=== PATIENT | female | born 1980 | race Hispanic/Latino ===

== ENCOUNTER 2018-03-10 10:40 | Emergency (ER) | payer BC ==
[2018-03-10] MEDS ORDERED: FAMOTIDINE 20 MG/2 ML VIAL IV ONE (12:00)
[2018-03-10] MEDS ORDERED: NA CHLORIDE 0.9% 1,000 ML ONE (12:00)
[2018-03-10 12:06] LABS: Absolute Lymphocytes (CBC) 2.3 K/uL (0.7-4.9); Absolute Monocytes 0.8 K/uL (0.1-1.3); Absolute Neutrophil 7.7 K/uL (1.8-8.0); Basophils % 0.7 % (0-1.3); Eosinophils % 1.3 % (0-4.4); Hematocrit 42.6 % (36.0-45.0); Lymphocytes % 20.8 % (15.3-44.8); MPV 9.8 fL (7.6-11.3); Monocytes % 7.2 % (3.3-12.3); RBC Red Blood Cell Count 4.32 M/uL (3.86-4.86)
--- NOTE | 2018-03-10 12:19 | EKG ---
Test Date: 2018-03-10 Test Time: 11:00:56 Plastic Surgery Manager: BRADNIE MEASUREMENT RESULTS: Intervals: Rate: 106 ID: [id number] QRSD: 100 QT: 336 QTc: 446 Fellows: P: 66 ID: [id number] QRS: 90 T: 63 INTERPRETIVE STATEMENTS: Sinus tachycardia Rightward axis Borderline ECG No previous ECG available for comparison Electronically Signed On 03-10-18 12:18:56 ASSISTANT CHIEF TRAIN DISPATCHER by Eduardo Mendez
[2018-03-10 12:29] LABS: ALT/SGPT 77 U/L (12-78); AST/SGOT 28 U/L (15-37); Albumin 3.5 g/dL (3.4-5.0); Alkaline Phosphatase 74 U/L (45-117); BUN Blood Urea Nitrogen 11 mg/dL (7-18); Bicarbonate 28 mmol/L (21-32); Bilirubin Direct 0.2 mg/dL (0-0.2); Bilirubin Total 0.5 mg/dL (0.2-1.0); Glucose Level 106 mg/dL (74-106); Magnesium 1.9 mg/dL (1.8-2.4); NT PRO-BNP 9 pg/mL (<125); Potassium 3.5 mmol/L (3.5-5.1); Protein, Total 7.3 g/dL (6.4-8.2); Sodium Level 141 mmol/L (136-145); Troponin (Emerg Dept Use Only) < 0.02 ng/mL (0.0-0.045)
--- NOTE | 2018-03-10 13:51 | RAD REPORT ---
EXAM DESCRIPTION: Giovanny Single View03/10/2018 1:26 pm CLINICAL HISTORY: Chest pain COMPARISON: none FINDINGS: The lungs appear clear of acute infiltrate. The heart is normal size IMPRESSION: No acute abnormalities displayed
--- NOTE | 2018-03-10 15:00 | ER ---
Nurse's Notes [facility] Name: Suly Law Age: 38 yrs Sex: Female : 1980 Arrival Date: 03/10/2018 Time: 10:44 Bed 13 Private MD: None, None Diagnosis: Other chest pain Presentation: 03/10 11:02 Presenting complaint: Patient states: N/V/D x 2 days, sharp midsternal chest pain that ph began at 0300 today, also reports feeling "tingly" all over, states, " after I eat sometimes I get pain here (epigastric area) and it goes through to my back" Denies epigastric pain at this time, denies fever. Transition of care: patient was not received from another setting of care. Onset of symptoms was March 10, 2018. Risk Assessment: Do you want to hurt yourself or someone else? Patient reports no desire to harm self or others. Initial Sepsis Screen: Does the patient meet any 2 criteria? No. Patient's initial sepsis screen is negative. Does the patient have a suspected source of infection? No. Patient's initial sepsis screen is negative. Care prior to arrival: None. 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 - Ebola Screening: : Patient negative for fever greater than or equal to 101.5 degrees Fahrenheit, and additional compatible Ebola Virus Disease symptoms. - Social history:: Smoking status: Patient/guardian denies using tobacco. Screenin:00 Abuse screen: Denies threats or abuse. Nutritional screening: Nausea and vomiting x 3 rb1 days. Tuberculosis screening: No symptoms or risk factors identified. Fall Risk None identified. Assessment: 11:00 General: Appears in no apparent distress. comfortable, obese, Behavior is calm, rb1 cooperative, Denies fever. Pain: Complains of pain in mid-sternal area Pain radiates to back Pain currently is 7 out of 10 on a pain scale. Quality of pain is described as sharp, Pain began 2-3 days ago. Per pt. report the pain comes and goes. Neuro: Level of Consciousness is awake, alert, obeys commands, Oriented to person, place, time, situation, Reports numbness in fingers. Cardiovascular: Capillary refill < 3 seconds is brisk in bilateral fingers Rhythm is sinus tachycardia. Respiratory: Airway is patent Respiratory effort is even, unlabored, Respiratory pattern is regular, symmetrical. GI: Reports diarrhea, nausea, vomiting. : No signs and/or symptoms were reported regarding the genitourinary system. Derm: Skin is dry, Skin is normal, Skin temperature is warm. Musculoskeletal: Range of motion: intact in all extremities. 12:00 Reassessment: Patient appears in no apparent distress at this time. No changes from rb1 previously documented assessment. 13:00 Reassessment: Patient appears in no apparent distress at this time. Patient and/or rb1 family updated on plan of care and expected duration. Pain level reassessed. Patient is alert, oriented x 3, equal unlabored respirations, skin warm/dry/pink. 14:00 Reassessment: Patient appears in no apparent distress at this time. No changes from rb1 previously documented assessment. Patient states feeling better. 15:00 Reassessment: Patient appears in no apparent distress at this time. Patient and/or rb1 family updated on plan of care and expected duration. Pain level reassessed. Patient is alert, oriented x 3, equal unlabored respirations, skin warm/dry/pink. Vital Signs: 11:04 BP 149 / 97; Pulse 115; Resp 20; Temp 98.0; Pulse Ox 98% on R/A; Weight 114.76 kg; ph Height 5 ft. 4 in. (162.56 cm); 12:04 BP 135 / 76; Pulse 95; Resp 20; Pulse Ox 99% ; Pain 7/10; rb1 13:00 BP 128 / 78; Pulse 81; Resp 23; Pulse Ox 99% on R/A; rb1 14:00 BP 127 / 86; Pulse 88; Resp 19; Pulse Ox 99% on R/A; rb1 15:00 BP 128 / 77; Pulse 81; Resp 17; Pulse Ox 99% ; rb1 15:20 BP 128 / 77; Pulse 81; Resp 25; Pulse Ox 99% ; rb1 11:04 Body Mass Index 43.43 (114.76 kg, 162.56 cm) ph ED Course: 10:44 Patient arrived in ED. sb2 10:45 None, None is Private Physician. sb2 10:59 Carmen Lopez, RN is Primary Nurse. rb1 11:00 Patient has correct armband on for positive identification. Placed in gown. Bed in low rb1 position. Call light in reach. Side rails up X 1. nurse monitoring on. Pulse ox on. NIBP on. Warm blanket given. 11:00 Patient maintains SpO2 saturation greater than 95% on room air. rb1 11:04 Triage completed. ph 11:05 Sunny Mckeon MD is Attending Physician. kdr 11:05 Arm band placed on Patient placed in an exam room, on a stretcher. ph 11:10 EKG done, by aircraft maintenance technician. reviewed by Sunny Mckeon MD. at1 11:57 Initial lab(s) drawn, by me, sent to lab. Inserted saline lock: 20 gauge in right 3 antecubital area, using aseptic technique. Blood collected. 13:24 X-ray completed. Portable x-ray completed in exam room. Patient tolerated procedure sw well. 13:25 XRAY Chest (1 view) In Process Unspecified. EDMS 13:54 Repeat lab(s) drawn. by me, sent to lab. 3 15:23 No provider procedures requiring assistance completed. IV discontinued, intact, rb1 bleeding controlled, No redness/swelling at site. Pressure dressing applied. Administered Medications: 12:00 Drug: Pepcid 20 mg Route: IVP; Site: right antecubital; rb1 12:00 Drug: NS 0.9% 1000 ml Route: IV; Rate: 1 bolus; Site: right antecubital; rb1 Outcome: 14:59 Discharge ordered by . kdr 15:23 Patient left the ED. rb1 15:23 Discharged to home ambulatory, with family. rb1 15:23 Condition: stable 15:23 Discharge instructions given to patient, Instructed on discharge instructions, follow up and referral plans. Demonstrated understanding of instructions, follow-up care, Prescriptions given X none Signatures: Dispatcher [employer] EDOK Sunny Mckeon MD MD kdr Monica Gillis, weather stripper EKG Tat1 Kimberly Wells RN RN Yoana Dewitt Carmen Lopez, RN RN [facility] Aniyah Morrison 3 Jordyn Otero sb2 Corrections: (The following items were deleted from the chart) 13:36 11:00 Neuro: Level of Consciousness is awake, alert, obeys commands, Oriented to rb1 person, place, time, situation, rb1
--- NOTE | 2018-03-10 15:00 | EDPHYS ---
Physician Documentation [facility] Name: Suly Law Age: 38 yrs Sex: Female : 1980 Arrival Date: 03/10/2018 Time: 10:44 Bed 13 Private MD: None, None ED Physician Sunny Mckeon HPI: 03/10 11:47 This 38 yrs old Female presents to ER via Ambulatory with complaints of Chest kdr Pain, TINGLING FINGERS, Vomiting/Diarrhea. 11:47 The patient or guardian reports chest pain that is located primarily in the substernal kdr area. 11:47 The pain does not radiate. Associated signs and symptoms: Pertinent positives: nausea, kdr shortness of breath, vomiting, Pertinent negatives: abdominal pain, cough, diaphoresis, dizziness, headache, lower extremity pain, lower extremity swelling, lightheadedness, near syncope, palpitations, recent travel, syncope. The chest pain is described as burning. Duration: The patient or guardian reports multiple episodes, that are intermittent, that wax and wane, with no pattern. Modifying factors: The symptoms are alleviated by nothing. the symptoms are aggravated by nothing. Severity of pain: At its worst the pain was mild moderate just prior to arrival, in the emergency department the pain has improved moderately. The patient has not experienced similar symptoms in the past. The patient has not recently seen a physician. The patient smokes 1/2 ppd and drinks three large glasses of whiskey every other day. 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 - Ebola Screening: : Patient negative for fever greater than or equal to 101.5 degrees Fahrenheit, and additional compatible Ebola Virus Disease symptoms. - Social history:: Smoking status: Patient/guardian denies using tobacco. ROS: 11:50 Constitutional: Negative for fever, chills, and weight loss, Eyes: Negative for injury, kdr pain, redness, and discharge, ENT: Negative for injury, pain, and discharge, Neck: Negative for injury, pain, and swelling, Respiratory: Negative for shortness of breath, cough, wheezing, and pleuritic chest pain, Abdomen/GI: Negative for abdominal pain, nausea, vomiting, diarrhea, and constipation, Back: Negative for injury and pain, : Negative for injury, bleeding, discharge, and swelling, MS/Extremity: Negative for injury and deformity, Skin: Negative for injury, rash, and discoloration, Neuro: Negative for headache, weakness, numbness, tingling, and seizure activity. Psych: Negative for depression, anxiety, suicide ideation, homicidal ideation, and hallucinations, Allergy/Immunology: Negative for hives, rash, and allergies, Endocrine: Negative for neck swelling, polydipsia, polyuria, polyphagia, and marked weight changes, Hematologic/Lymphatic: Negative for swollen nodes, abnormal bleeding, and unusual bruising. 11:50 Cardiovascular: Positive for chest pain, of the xyphoid area and mid-sternal area, Negative for edema, orthopnea, palpitations, paroxysmal nocturnal dyspnea. Exam: 11:50 Constitutional: This is a well developed, well nourished patient who is awake, alert, kdr and in no acute distress. Head/Face: Normocephalic, atraumatic. Eyes: Pupils equal round and reactive to light, extra-ocular motions intact. Lids and lashes normal. Conjunctiva and sclera are non-icteric and not injected. Cornea within normal limits. Periorbital areas with no swelling, redness, or edema. Neck: Trachea midline, no thyromegaly or masses palpated, and no cervical lymphadenopathy. Supple, full range of motion without nuchal rigidity, or vertebral point tenderness. No Meningismus. Chest/axilla: Normal chest wall appearance and motion. Nontender with no deformity. No lesions are appreciated. Cardiovascular: Regular rate and rhythm with a normal S1 and S2. No gallops, murmurs, or rubs. Normal PMI, no JVD. No pulse deficits. Respiratory: Lungs have equal breath sounds bilaterally, clear to auscultation and percussion. No rales, rhonchi or wheezes noted. No increased work of breathing, no retractions or nasal flaring. Abdomen/GI: Soft, non-tender, with normal bowel sounds. No distension or tympany. No guarding or rebound. No evidence of tenderness throughout. Back: No spinal tenderness. No costovertebral tenderness. Full range of motion. Pelvic Exam: Normal external genitalia. Speculum exam with closed cervical os, no discharge or bleeding noted. Bimanual exam with normal adnexa, no adnexal or cervical motion tenderness. Normal uterus. Skin: Warm, dry with normal turgor. Normal color with no rashes, no lesions, and no evidence of cellulitis. MS/ Extremity: Pulses equal, no cyanosis. Neurovascular intact. Full, normal range of motion. Neuro: Awake and alert, GCS 15, oriented to person, place, time, and situation. Cranial nerves II-XII grossly intact. Motor strength 5/5 in all extremities. Sensory grossly intact. Cerebellar exam normal. Normal gait. Psych: Awake, alert, with orientation to person, place and time. Behavior, mood, and affect are within normal limits. Vital Signs: 11:04 BP 149 / 97; Pulse 115; Resp 20; Temp 98.0; Pulse Ox 98% on R/A; Weight 114.76 kg; ph Height 5 ft. 4 in. (162.56 cm); 12:04 BP 135 / 76; Pulse 95; Resp 20; Pulse Ox 99% ; Pain 7/10; rb1 13:00 BP 128 / 78; Pulse 81; Resp 23; Pulse Ox 99% on R/A; rb1 14:00 BP 127 / 86; Pulse 88; Resp 19; Pulse Ox 99% on R/A; rb1 15:00 BP 128 / 77; Pulse 81; Resp 17; Pulse Ox 99% ; rb1 15:20 BP 128 / 77; Pulse 81; Resp 25; Pulse Ox 99% ; rb1 11:04 Body Mass Index 43.43 (114.76 kg, 162.56 cm) ph MDM: 11:50 Data reviewed: vital signs, nurses notes, lab test result(s). Counseling: I had a kdr detailed discussion with the patient and/or guardian regarding: the historical points, exam findings, and any diagnostic results supporting the discharge/admit diagnosis, lab results, radiology results. 14:59 Patient medically screened. [facility] 03/10 11:46 Order name: Basic Metabolic Panel; Complete Time: 13:26 [facility] 03/10 11:46 Order name: CBC with Diff; Complete Time: 13:26 [facility] 03/10 11:46 Order name: LFT's; Complete Time: 13:26 [facility] 03/10 11:46 Order name: Magnesium; Complete Time: 13: [facility] 03/10 11:46 Order name: NT PRO-BNP; Complete Time: 13: [facility] 03/10 11:46 Order name: PT-INR; Complete Time: 13: [facility] 03/10 11:46 Order name: Troponin (emerg Dept Use Only); Complete Time: 13: [facility] 03/10 11:46 Order name: XRAY Chest (1 view); Complete Time: 14:29 [facility] 03/10 11:46 Order name: EKG; Complete Time: 11:47 [facility] 03/10 11:46 Order name: Cardiac monitoring; Complete Time: 12: [facility] 03/10 11:49 Order name: ETOH Level; Complete Time: 13: [facility] 03/10 13:27 Order name: Troponin (emerg Dept Use Only): Draw three (3) hours after initial draw; kdr Complete Time: 14:03/10 11:46 Order name: EKG - Nurse/Tech; Complete Time: 12: [facility] 03/10 11:46 Order name: IV Saline Lock; Complete Time: 12: [facility] 03/10 11:46 Order name: Labs collected and sent; Complete Time: 12: [facility] 03/10 11:46 Order name: O2 Per Protocol; Complete Time: 12: [facility] 03/10 11:46 Order name: O2 Sat Monitoring; Complete Time: 12: [facility] Administered Medications: 12:00 Drug: Pepcid 20 mg Route: IVP; Site: right antecubital; rb1 12:00 Drug: NS 0.9% 1000 ml Route: IV; Rate: 1 bolus; Site: right antecubital; rb1 Disposition: 03/10/18 14:59 Discharged to Home. Impression: Other chest pain. - Condition is Stable. - Discharge Instructions: Nonspecific Chest Pain, [id number]. - Medication Reconciliation Form, Thank You Letter, Work release form form. - Follow up: Private Physician; When: 2 - 3 days; Reason: If symptoms return, Further diagnostic work-up, Recheck today's complaints, Continuance of care, Re-evaluation by your physician. - Problem is new. - Symptoms have improved. Signatures: Dispatcher [employer] EDSunny Savage MD MD kdr Kimberly Wells RN RN Carmen Lopez, RN RN rb1 Corrections: (The following items were deleted from the chart) 15:23 14:59 03/10/2018 14:59 Discharged to Home. Impression: Other chest pain. Condition is rb1 Stable. Forms are Medication Reconciliation Form, Thank You Letter, Antibiotic Education, Prescription Opioid Use. Follow up: Private Physician; When: 2 - 3 days; Reason: If symptoms return, Further diagnostic work-up, Recheck today's complaints, Continuance of care, Re-evaluation by your physician. Problem is new. Symptoms have improved. kdr
== END 2018-03-10 15:23 | disposition home or self-care (01) ==
LOC: ER 10:40
DX: R07.89 Other chest pain (principal); R11.2 Nausea with vomiting, unspecified
CPT/HCPCS: 36415; 71045; 80048; 80076; 80320; 83735; 83880; 84484; 85025; 85610; 93005; 96374; 99285; J7030

== ENCOUNTER 2018-04-25 09:36 | Emergency (ER) | payer BC ==
[2018-04-25] MEDS ORDERED: AZITHROMYCIN 250 MG TAB ONE (10:37)
--- NOTE | 2018-04-25 11:16 | EDPHYS ---
Physician Documentation [facility] Name: Suly Law Age: 38 yrs Sex: Female : 1980 Arrival Date: 04/25/2018 Time: 09:44 Bed 24 Private MD: None, None ED Physician Amelia Keyes HPI: 04/25 10:20 This 38 yrs old Female presents to ER via Ambulatory with complaints of Sore ma2 Throat. 10:20 The patient presents with sore throat. Onset: The symptoms/episode began/occurred ma2 gradually, 3 day(s) ago. Severity of symptoms: At their worst the symptoms were moderate, in the emergency department the symptoms have resolved. Associated signs and symptoms: Pertinent negatives cough, diarrhea, fever, flu-like symptoms, nausea. The patient has experienced similar episodes in the past. 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 - Social history:: Smoking status: Patient uses tobacco products, smokes one-half pack cigarettes per day, Patient/guardian denies using alcohol, street drugs, The patient lives with family. - Ebola Screening: : No symptoms or risks identified at this time. - Family history:: not pertinent. ROS: 10:20 Constitutional: Negative for fever, chills, and weight loss. ma2 10:20 ENT: Positive for sore throat, Negative for ear pain, pulling at ears. 10:20 All other systems are negative. Exam: 10:20 Constitutional: This is a well developed, well nourished patient who is awake, alert, ma2 and in no acute distress. Head/Face: Normocephalic, atraumatic. Chest/axilla: Normal chest wall appearance and motion. Nontender with no deformity. No lesions are appreciated. Cardiovascular: Regular rate and rhythm with a normal S1 and S2. No gallops, murmurs, or rubs. Normal PMI, no JVD. No pulse deficits. Respiratory: Lungs have equal breath sounds bilaterally, clear to auscultation and percussion. No rales, rhonchi or wheezes noted. No increased work of breathing, no retractions or nasal flaring. Abdomen/GI: Soft, non-tender, with normal bowel sounds. No distension or tympany. No guarding or rebound. No evidence of tenderness throughout. Skin: Warm, dry with normal turgor. Normal color with no rashes, no lesions, and no evidence of cellulitis. MS/ Extremity: Pulses equal, no cyanosis. Neurovascular intact. Full, normal range of motion. 10:20 ENT: External ear(s): are unremarkable, Ear canal(s): are normal, TM's: are normal, Nose: is normal, Mouth: is normal, Posterior pharynx: Airway: normal, Tonsils: bilaterally enlarged, with exudate, Uvula: normal, swelling, that is mild, erythema, that is mild, peritonsillar mass, is not appreciated, pooling of secretions, is not appreciated. Vital Signs: 09:55 BP 180 / 93; Pulse 118; Resp 18; Temp 99; Pulse Ox 100% on R/A; Pain 10/10; hb 10:13 BP 152 / 95; Pulse 108; Resp 20; Pulse Ox 97% on R/A; aj1 11:15 BP 138 / 87; Pulse 92; Resp 18; Pulse Ox 97% on R/A; aj1 MDM: 10:05 Patient medically screened. ma2 10:20 Differential diagnosis: luis-roman virus, tonsillitis, upper respiratory infection, ma2 viral syndrome. Data reviewed: vital signs, nurses notes. Counseling: I had a detailed discussion with the patient and/or guardian regarding: the historical points, exam findings, and any diagnostic results supporting the discharge/admit diagnosis, the presence of at least one elevated blood pressure reading (>120/80) during this emergency department visit, the need for outpatient follow up. 04/25 10:26 Order name: Flu; Complete Time: 11:15 aj1 04/25 10:26 Order name: Strep; Complete Time: 11:15 aj04/25 11:13 Order name: Throat Culture EDMS Administered Medications: 10:46 Drug: Zithromax 500 mg Route: PO; aj1 11:16 Follow up: Response: No adverse reaction aj1 Disposition: 04/25/18 11:15 Discharged to Home. Impression: Acute bronchitis. - Condition is Stable. - Discharge Instructions: Acute Bronchitis, Adult. - Prescriptions for Tylenol- Codeine #3 300-30 mg Oral Tablet - take 2 tablet by ORAL route every 6 hours As needed; 30 tablet. Zithromax Z- Dk 250 mg Oral Tablet - take 1 tablet by ORAL route as directed for 5 days Day 1 - take two (2) tablets one time. Day 2, 3, 4 , 5 take one (1) tablet once daily.; 6 tablet. Zyrtec 10 mg Oral Tablet - take 1 tablet by ORAL route once daily As needed; 20 tablet. Medrol (Dk) 4 mg Oral Tablets, Dose Pack - take 1 tablet by ORAL route as directed - follow package instructions; 1 packet. - Work release form, Medication Reconciliation Form, Thank You Letter, Antibiotic Education, Prescription Opioid Use form. - Follow up: Private Physician; When: Tomorrow; Reason: Continuance of care. Signatures: Dispatcher Feastie EDSarah Beth Vazquez RN RN aj1 Loni Rivera RN RN Salina Brown RN RN Amelia Keyes MD MD ma2 Corrections: (The following items were deleted from the chart) 11:27 11:15 04/25/2018 11:15 Discharged to Home. Impression: Acute bronchitis. Condition is iw Stable. Discharge Instructions: Upper Respiratory Infection, Adult. Prescriptions for Tylenol-Codeine #3 300-30 mg Oral Tablet - take 2 tablet by ORAL route every 6 hours As needed; 30 tablet, Zithromax Z-Dk 250 mg Oral Tablet - take 1 tablet by ORAL route as directed for 5 days Day 1 - take two (2) tablets one time. Day 2, 3, 4 , 5 take one (1) tablet once daily.; 6 tablet. and Forms are Medication Reconciliation Form, Thank You Letter, Antibiotic Education, Prescription Opioid Use. Follow up: Private Physician; When: Tomorrow; Reason: Continuance of care. ma2
--- NOTE | 2018-04-25 11:16 | ER ---
Nurse's Notes [facility] Name: Suly Law Age: 38 yrs Sex: Female : 1980 Arrival Date: 04/25/2018 Time: 09:44 Bed 24 Private MD: None, None Diagnosis: Acute bronchitis Presentation: 04/25 09:54 Presenting complaint: Sore throat, body aches, and productive cough x 2 weeks, neck hb swelling x 2 days. Transition of care: patient was not received from another setting of care. Onset of symptoms is unknown. Risk Assessment: Do you want to hurt yourself or someone else? Patient reports no desire to harm self or others. Care prior to arrival: None. 09:54 Method Of Arrival: Ambulatory hb 09:54 Acuity: LINDSEY 3 hb 11:27 Initial Sepsis Screen: Does the patient meet any 2 criteria? No. Patient's initial iw sepsis screen is negative. Does the patient have a suspected source of infection? No. Patient's initial sepsis screen is negative. GINNER: 11:27 LMP N/A - iw Historical: - Allergies: 09:56 No Known Allergies; hb - Home Meds: 09:56 None [Active]; hb - PMHx: 09:56 None; hb - PSHx: 09:56 None; hb - Immunization history:: Adult Immunizations up to date. - Social history:: Smoking status: Patient uses tobacco products, smokes one-half pack cigarettes per day, Patient/guardian denies using alcohol, street drugs, The patient lives with family. - Ebola Screening: : No symptoms or risks identified at this time. - Family history:: not pertinent. Screenin:13 Abuse screen: Denies threats or abuse. Denies injuries from another. Nutritional aj1 screening: No deficits noted. Tuberculosis screening: No symptoms or risk factors identified. 11:27 Fall Risk None identified. iw Assessment: 10:13 General: Appears in no apparent distress. uncomfortable, Behavior is calm, cooperative, aj1 appropriate for age. Pain: Complains of pain in neck Pain does not radiate. Pain currently is 10 out of 10 on a pain scale. Neuro: Level of Consciousness is awake, alert, obeys commands, Oriented to person, place, time, situation. Cardiovascular: Patient's skin is warm and dry. Respiratory: Reports cough that is productive, Airway is patent Respiratory effort is even, unlabored, Respiratory pattern is regular, symmetrical, Breath sounds are clear bilaterally. GI: No signs and/or symptoms were reported involving the gastrointestinal system. : No signs and/or symptoms were reported regarding the genitourinary system. EENT: Throat is reddened Reports sore throat. Derm: No signs and/or symptoms reported regarding the dermatologic system. Skin is pink, warm \T\ dry. normal. Musculoskeletal: No signs and/or symptoms reported regarding the musculoskeletal system. Circulation, motion, and sensation intact. 11:14 Reassessment: Patient appears in no apparent distress at this time. No changes from aj1 previously documented assessment. Patient and/or family updated on plan of care and expected duration. Pain level reassessed. Patient is alert, oriented x 3, equal unlabored respirations, skin warm/dry/pink. Vital Signs: 09:55 BP 180 / 93; Pulse 118; Resp 18; Temp 99; Pulse Ox 100% on R/A; Pain 10/10; hb 10:13 BP 152 / 95; Pulse 108; Resp 20; Pulse Ox 97% on R/A; aj1 11:15 BP 138 / 87; Pulse 92; Resp 18; Pulse Ox 97% on R/A; aj1 ED Course: 09:44 Patient arrived in ED. mr 09:44 None, None is Private Physician. mr 09:55 Triage completed. hb 09:56 Arm band placed on. hb 09:58 Sarah Beth Doe, RN is Primary Nurse. aj1 10:05 Amelia Keyes MD is Attending Physician. ma2 10:13 Patient has correct armband on for positive identification. Bed in low position. Call aj1 light in reach. Side rails up X 1. 10:13 No provider procedures requiring assistance completed. aj1 10:40 Flu and/or RSV swab sent to lab. Strep swab sent to lab. jb1 10:40 Strep Sent. jb1 10:40 Flu Sent. jb1 11:27 Patient did not have IV access during this emergency room visit. iw Administered Medications: 10:46 Drug: Zithromax 500 mg Route: PO; aj1 11:16 Follow up: Response: No adverse reaction aj1 Outcome: 11:15 Discharge ordered by . ma2 11:27 Discharged to home ambulatory, with family. iw 11:27 Condition: good 11:27 Discharge instructions given to patient, family, Instructed on discharge instructions, follow up and referral plans. medication usage, Demonstrated understanding of instructions, follow-up care, medications, Prescriptions given X 4. 11:27 Patient left the ED. iw Signatures: Milton Castano jb1 Sarah Beth Doe RN RN aj1 Jazmin Phillips mr Loni Rivera RN RN iw Salina Brown RN RN Amelia Keyes MD MD ma2
== END 2018-04-25 11:27 | disposition home or self-care (01) ==
LOC: ER 09:36
DX: J20.9 Acute bronchitis, unspecified (principal); F17.210 Nicotine dependence, cigarettes, uncomplicated
CPT/HCPCS: 87070; 87081; 87804; 99283

== ENCOUNTER 2020-12-22 19:58 | Emergency (ER) | payer SELFPAY ==
--- OUTSIDE RECORDS SUMMARY | 2020-12-22 20:01 | XMS REPORT | Continuity of Care Document ---
:1980 Author Organization [facility] t Address [address] [place] [address] Care Team Providers Name Role Phone Osmani QUINONEZ Attending Clinician OSMANI Attending Clinician Unavailable Problems Condition Condition Condition Status Onset Resolution Last Treating Co mments Source Name Details Category Date Date Treatment Clinician Date No known No known Disease Unive rs active active ity of problems problems [facility] Allergies, Adverse Reactions, Alerts Allergy Allergy Status Severity Reaction(s) Onset Inactive Treating Comm ents Source Name Type Date Date Clinician NO KNOWN Drug Active Univers ALLERGIE Class ity of S [facility] Social History Social Habit Start Date Stop Date Quantity Comments Source Exposure to Not sure [facility] [birth year] [facility] 00:00:00 00:00:00 [facility] Smoking Status Start Date Stop Date Source Unknown if ever smoked [facility] Medications Ordered Filled Start Stop Current Ordering Indication Dosage Frequency Signature Comments Components Source Medication Medication Date Date Medication? Clinician (SIG) Name Name dexamethaso 2020- No 10mg 10 mg, Uni vers ne 07-26 Slow IV ity of (DECADRON 22:36: 22:41 Push, [place] PHOSPHATE) 00 :00 ONCE, 1 Medica l injection dose, Fri Branc h 10 mg 07/26/20 at 1745, STAT ketorolac 2020- No 30mg 30 mg, Unive rs (TORADOL) 07-26 Slow IV ity of injection 22:35: 22:39 Push, [place] 30 mg 00 :00 ONCE, 1 Medical dose, Fri Branch 07/26/20 at 1745, JANUARY
Fa culty member approving Restricted medication : CARO KEEN NaCl 0.9% 2020- No 1000mL at 999 Uni vers (NS) bolus 6-18 06-19 mL/hr, ity of infusion 22:30: 00:37 1,000 mL, [place] as 1,000 mL 00 :00 IV Medical Infusion, Branch ONCE, 1 dose, 07/26/20 at 1730, JANUARY ibuprofen Yes [id number] 800mg Take 1 Univers 800 mg 6-18 tablet by ity of tablet 00:00: mouth [place] 00 every 8 Medical (eight) Branch hours as needed for Pain (scale 4-6). methocarbam Yes [id number] 750mg Take 1 Univers oL 750 mg 6-18 tablet by ity o f tablet 00:00: mouth 4 [place] 00 (four) Medical times Branch daily as needed (muscle spasm). predniSONE 2020- No [id number] 40mg Take 2 Univers 20 mg 6-18 06-24 tablets by ity of tablet 00:00: 04:59 mouth [place] 00 :00 daily for Medical 5 days. [place] Vital Signs Vital Name Observation Time Observation Value Comments Source Systolic blood 2020-07-26 23:37:00 127 mm[Hg] [facility] Diastolic blood 2020-07-26 23:37:00 82 mm[Hg] [facility] Heart rate 2020-07-26 23:37:00 92 /min [facility] Respiratory rate 2020-07-26 23:37:00 18 /min [facility] Oxygen saturation in 2020-07-26 23:37:00 99 /min [facility] Arterial blood by [facility] Pulse oximetry [place] Body temperature 2020-07-26 22:13:00 37.72 Bernice [facility] Body weight 2020-07-26 22:13:00 114.76 kg [facility] Procedures Procedure Date / Time Performed Performing Clinician Sourc e URINALYSIS 2020-07-26 22:50:00 Caro Keen [facility] XR CHEST 1 VW 2020-07-26 22:40:28 Caro Keen [facility] HEPATIC FUNCTION PANEL 2020-07-26 22:33:00 Keen, CaroOn license of [facility] ([id number]) Medical Branch (ALB,T.PRO,BILI T,BU/BC,ALT,AST,ALK PHOS) BASIC METABOLIC PANEL 2020-07-26 22:33:00 Caro Keen [facility] (NA, K, CL, CO2, Medical Branch GLUCOSE, BUN, CREATININE, CA) CBC WITH DIFF 2020-07-26 22:33:00 Caro Keen [facility] Encounters Start End Encounter Admission Attending Care Care Encounter Source Date/Time Date/Time Type Type Clinicians Facility Department ID 2020-07-26 2020-07-26 Emergency [facility] [id number] Univers 17:16:00 19:40:00 Caro [facility] [id number] i ty [facility] [id number] [facility] [id number] [facility] nette 084 Branch 2020-07-26 2020-07-26 Emergency X OSMANI [facility] ERT [id number] Univers 17:09:00 17:09:00 CARO [facility] Results Test Description Test Time Test Comments Results Result Comments Source Urinalysis 2020-07-26 23:17:30 Test Item Value Reference Range Interpretation Comme nts APPEARANCE (test code = Hazy Clear A 9576632722) COLOR (test code = 8087280787) Renetta Yellow A PH (test code = 2802794952) 4.8-8.0 SP GRAVITY (test code = 1.003-1.030 7605951119) GLU U QUAL (test code = Normal Normal 1689738894) BLOOD (test code = 8094207470) Negative Negative KETONES (test code = 5826249131) Negative Negative PROTEIN (test code = 2887-8) Negative Negative UROBILIN (test code = Normal Normal 5453341266) BILIRUBIN (test code = Negative Negative 3267334548) NITRITE (test code = 3379805418) Negative Negative LEUK KAY (test code = 25/uL Negative A 7698319908) RBC/HPF (test code = 1200181035) See_Comment H [Automated message] The system which ge nerated this result transmit victor manuel reference range: 0 - 3 HP F. The reference range was not used to interpret th is result as normal/abnormal . WBC/HPF (test code = 8459395472) See_Comment [Automated message] The system which ge nerated this result transmit victor manuel reference range: 0 - 5 HP F. The reference range was not used to interpret th is result as normal/abnormal . BACTERIA (test code = Few Negative A 8746685678) MUCOUS (test code = 8059018925) Slight Negative LPF A SQ EPITH (test code = HPF 2873561256) Lab Interpretation (test code = Abnormal 07397-6) [facility] Metabolic Panel (NA, K, CL, CO2, GLUCOSE, BUN, CREATININE, CA)2020-07-26 22:51:34 Test Item Value Reference Range Interpretation Comments NA (test code = 137 mmol/L 135-145 4010853668) K (test code = 4.0 mmol/L 3.5-5.0 8699169688) CL (test code = 105 mmol/L 98-108 9734526899) CO2 TOTAL (test code = 25 mmol/L 23-31 9443157433) AGAP (test code = 2-16 6416781802) BUN (test code = 12 mg/dL 7-23 3987183773) GLUCOSE (test code = 106 mg/dL 70-110 6736112206) CREATININE (test code = 1.06 mg/dL 0.50-1.04 H 4587721563) CALCIUM (test code = 9.6 mg/dL 8.6-10.6 6749465591) eGFR (test code = mL/min/1.73m2 4656414573) PASHA (test code = PASHA) Association of Glomerular Filtration Rate (GFR) and Staging of Kidney Disease* + --+ --+ ------+| GFR (mL/min/1.73 m2) ?| With Kidney Damage ?| ?Without Kidney Damage+ --------+ --------+ +| ?>90 ?| ?Stage one ?| ? Normal ?+ ---+ ---+ -------+| ?60-89 ?| ?Stage two ?| ? Decreased GFR ? + --+ --+ ------+| ?30-59 ?| ?Stage three ?| ? Stage three ? + --+ --+ ------+| ?15-29 ?| ?Stage four ? | ? Stage four ?+ ---+ ---+ -------+| ?<15 (or dialysis) ? ?| ?Stage five ? | ? Stage five ?+ ---+ ---+ -------+ *Each stage assumes the associated GFR level has been in effect for at least three months. ?Stages 1 to 5, with or without kidney disease, indicate chronic kidney disease. Notes: Determination of stages one and two (with eGFR >59mL/min/1.73 m2) requires estimation of kidney damage for at least three months as defined by structural or functional abnormalities of the kidney, manifested by either:Pathological abnormalities or Markers of kidney damage (including abnormalities in the composition of the blood or urine or abnormalities in imaging tests). Lab Interpretation Abnormal (test code = 80314-1) [facility] (ALB, T.PRO, BILI T, BU/BC, ALT, AST, ALK PHOS)2020-07-26 22:51:14 Test Item Value Reference Range Interpretation Comments TOTAL BILI (test code = 1756001608) 0.4 mg/dL 0.1-1.1 BILI UNCON (test code = 5991033927) 0.2 mg/dL 0.1-1.1 BILI CONJ (test code = 6927921195) 0.0 mg/dL 0.0-0.3 T PROTEIN (test code = 4040954000) 7.6 g/dL 6.3-8.2 ALBUMIN (test code = 0177498912) 4.3 g/dL 3.5-5.0 ALK PHOS (test code = 9186187606) 52 U/L 34-122 ALTv (test code = 1742-6) 45 U/L 5-35 H AST(SGOT) (test code = 9224036520) 33 U/L 13-40 Lab Interpretation (test code = Abnormal 71136-3) [facility] [id number] 22:39:53 Test Item Value Reference Range Interpretation Comments WBC (test code = See_Comment [Automated 0373-2) message] The sy stem which generated this result transmitted reference range : 4.30 - 11.10 10*3/?L. The reference range was not used to interpret this result as normal/abnormal . RBC (test code = See_Comment [Automated 789-8) message] The sy stem which generated this result transmitted reference range : 3.93 - 5.25 10*6/?L. The reference range was not used to interpret this result as normal/abnormal . HGB (test code = 14.2 g/dL 11.6-15.0 718-7) HCT (test code = 41.5 % 35.7-45.2 4544-3) MCV (test code = 99.0 fL 80.6-95.5 H 787-2) MCH (test code = 33.9 pg 25.9-32.8 H 785-6) MCHC (test code = 34.2 g/dL 31.6-35.1 786-4) RDW-SD (test code = 45.8 fL 39.0-49.9 98189-4) RDW-CV (test code = 12.7 % 12.0-15.5 788-0) PLT (test code = See_Comment [Automated 777-3) message] The sy stem which generated this result transmitted reference range : 166 - 358 10*3/ ?L. The reference r tony was not used to interpret this result as normal/abnormal . MPV (test code = 11.0 fL 9.5-12.9 16289-4) NRBC/100 WBC (test See_Comment [Automat ed code = 8252346877) message] The system which generated this result transmitted reference range : 0.0 - 10.0 /100 WBCs. The refer ence range was not u sed to interpret th is result as normal/abnormal . NRBC x10^3 (test code <0.01 See_Comment [Auto mated = 5161991262) message] The s ystem which generated this result transmitted reference range : 10*3/?L. The reference range was not used to interpret this result as normal/abnormal . GRAN MAT (NEUT) % 57.9 % (test code = 770-8) IMM GRAN % (test code 0.50 % = 1952114508) LYMPH % (test code = 23.2 % 736-9) MONO % (test code = 11.3 % 5905-5) EOS % (test code = 6.2 % 713-8) BASO % (test code = 0.9 % 706-2) GRAN MAT x10^3(ANC) 4.54 10*3/uL 1.88-7.09 (test code = 1223578945) IMM GRAN x10^3 (test 0.04 10*3/uL 0.00-0.06 code = 6224541751) LYMPH x10^3 (test code 1.82 10*3/uL 1.32-3.29 = 731-0) MONO x10^3 (test code 0.89 10*3/uL 0.33-0.92 = 742-7) EOS x10^3 (test code = 0.49 10*3/uL 0.03-0.39 H 711-2) BASO x10^3 (test code 0.07 10*3/uL 0.01-0.07 = 704-7) Lab Interpretation Abnormal (test code = 16883-0) [facility]"
--- NOTE | 2020-12-22 21:27 | ER ---
Nurse's Notes [facility] Name: Suly Law Age: 40 yrs Sex: Female : 1980 Arrival Date: 12/22/2020 Time: 20:04 Bed Waiting Private MD: Diagnosis: Assessment: 12/22 21:13 Reassessment: Pt called from lobby, no response. Registration stated patient left 30 vg1 minutes ago. ED Course: 20:04 Patient arrived in ED. bp1 Administered Medications: No medications were administered Outcome: 21:27 Patient left the ED. vg1 Signatures: Sandra Mays RN RN vg1 Teodora Murillo bp1
== END 2020-12-22 21:27 | disposition left against medical advice (07) ==
LOC: ER 19:58
DX: Z02.9 Encounter for administrative examinations, unspecified (principal)

== ENCOUNTER 2020-12-23 11:50 | Emergency (ER) | payer SELFPAY ==
--- OUTSIDE RECORDS SUMMARY | 2020-12-23 11:53 | XMS REPORT | Continuity of Care Document ---
:1980 Author Organization [facility] t Address [address] [place] [address] Care Team Providers Name Role Phone Osmani QUINONEZ Attending Clinician OSMANI Attending Clinician Unavailable Problems Condition Condition Condition Status Onset Resolution Last Treating Co mments Source Name Details Category Date Date Treatment Clinician Date No known No known Disease Unive rs active active ity of problems problems [facility] Allergies, Adverse Reactions, Alerts Allergy Allergy Status Severity Reaction(s) Onset Inactive Treating Comm ents Source Name Type Date Date Clinician NO KNOWN Drug Active Univers ALLERGIE Class ity of S [facility] Social History Social Habit Start Date Stop Date Quantity Comments Source Exposure to Not sure [facility] Assigned At [birth year] [facility] 00:00:00 00:00:00 [facility] Smoking Status Start Date Stop Date Source Unknown if ever smoked [facility] Medications Ordered Filled Start Stop Current [...] dose, 07/26/20 at 1730, JANUARY ibuprofen Yes [id number] 800mg Take 1 Univers 800 mg 6-18 tablet by ity of tablet 00:00: mouth [place] 00 every 8 Medical (eight) Branch hours as needed for Pain (scale 4-6). methocarbam Yes [id number] 750mg Take 1 Univers oL 750 mg 6-18 tablet by ity o f tablet 00:00: mouth 4 [place] 00 (four) Medical times Branch daily as needed (muscle spasm). predniSONE 2020- No [id number] 40mg Take 2 Univers 20 mg 6-18 06-24 tablets by ity of tablet 00:00: 04:59 mouth [place] 00 :00 daily for Medical 5 days. [place] Vital Signs Vital Name Observation Time Observation Value Comments Source Systolic blood 2020-07-26 23:37:00 127 mm[Hg] [facility] Diastolic blood 2020-07-26 23:37:00 82 mm[Hg] [facility] Heart rate 2020-07-26 23:37:00 92 /min [facility] Respiratory rate 2020-07-26 23:37:00 18 /min [facility] Oxygen saturation in 2020-07-26 23:37:00 99 /min [facility] Arterial blood by [facility] Pulse oximetry [place] Body temperature 2020-07-26 22:13:00 37.72 Bernice [facility] Body weight 2020-07-26 22:13:00 114.76 kg [facility] Procedures Procedure Date / Time Performed Performing Clinician Sourc e URINALYSIS 2020-07-26 22:50:00 Caro Keen [facility] XR CHEST 1 VW 2020-07-26 22:40:28 Caro Keen [facility] HEPATIC FUNCTION PANEL 2020-07-26 22:33:00 [id number] (ALB,T.PRO,BILI T,BU/BC,ALT,AST,ALK PHOS) BASIC METABOLIC PANEL 2020-07-26 22:33:00 Caro Keen [facility] (NA, K, CL, CO2, Medical Branch GLUCOSE, BUN, CREATININE, CA) CBC WITH DIFF 2020-07-26 22:33:00 Caro Keen [facility] Encounters Start End Encounter Admission Attending Care Care Encounter Source Date/Time Date/Time Type Type Clinicians Facility Department ID 2020-07-26 2020-07-26 Emergency [facility] [id number] Univers 17:16:00 19:40:00 Caro [place] [id number] i ty [facility] [id number] [facility] [id number] [facility] nette 084 Branch 2020-07-26 2020-07-26 Emergency X OSMANI [facility] ERT [id number] Univers 17:09:00 17:09:00 CARO [facility] Results Test Description Test Time Test Comments Results Result Comments Source Urinalysis 2020-07-26 23:17:30 Test Item Value Reference Range Interpretation Comme nts APPEARANCE (test code = Hazy Clear A 3725636269) COLOR (test code = 1573220811) Renetta Yellow A PH (test code = 0797353004) 4.8-8.0 SP GRAVITY (test code = 1.003-1.030 6756834085) GLU U QUAL (test code = Normal Normal 1833295362) BLOOD (test code = 9275124862) Negative Negative KETONES (test code = 7100469312) Negative Negative PROTEIN (test code = 2887-8) Negative Negative UROBILIN (test code = Normal Normal 4735868635) BILIRUBIN (test code = Negative Negative 2737157392) NITRITE (test code = 2571644737) Negative Negative LEUK KAY (test code = 25/uL Negative A 5874719304) RBC/HPF (test code = 7863806330) See_Comment H [Automated message] The system which ge nerated this result transmit victor manuel reference range: 0 - 3 HP F. The reference range was not used to interpret th is result as normal/abnormal . WBC/HPF (test code = 2764198497) See_Comment [Automated message] The system which ge nerated this result transmit victor manuel reference range: 0 - 5 HP F. The reference range was not used to interpret th is result as normal/abnormal . BACTERIA (test code = Few Negative A 9924320895) MUCOUS (test code = 0205157104) Slight Negative LPF A SQ EPITH (test code = HPF 1565863270) Lab Interpretation (test code = Abnormal 34448-6) [facility] Metabolic Panel (NA, K, CL, CO2, GLUCOSE, BUN, CREATININE, CA)2020-07-26 22:51:34 Test Item Value Reference Range Interpretation Comments NA (test code = 137 mmol/L 135-145 8838557179) K (test code = 4.0 mmol/L 3.5-5.0 5804519522) CL (test code = 105 mmol/L 98-108 1840489762) CO2 TOTAL (test code = 25 mmol/L 23-31 9339889727) AGAP (test code = 2-16 1828960102) BUN (test code = 12 mg/dL 7-23 8456378775) GLUCOSE (test code = 106 mg/dL 70-110 0941871508) CREATININE (test code = 1.06 mg/dL 0.50-1.04 H 3127056096) CALCIUM (test code = 9.6 mg/dL 8.6-10.6 1694446722) eGFR (test code = mL/min/1.73m2 1571908794) PASHA (test code = PASHA) Association of [...] tests). Lab Interpretation Abnormal (test code = 00683-4) [facility] (ALB, T.PRO, BILI T, BU/BC, ALT, AST, ALK PHOS)2020-07-26 22:51:14 Test Item Value Reference Range Interpretation Comments TOTAL BILI (test code = 3767026386) 0.4 mg/dL 0.1-1.1 BILI UNCON (test code = 1787448799) 0.2 mg/dL 0.1-1.1 BILI CONJ (test code = 5078024354) 0.0 mg/dL 0.0-0.3 T PROTEIN (test code = 6250790976) 7.6 g/dL 6.3-8.2 ALBUMIN (test code = 2606084732) 4.3 g/dL 3.5-5.0 ALK PHOS (test code = 6252638509) 52 U/L 34-122 ALTv (test code = 1742-6) 45 U/L 5-35 H AST(SGOT) (test code = 6920251599) 33 U/L 13-40 Lab Interpretation (test code = Abnormal 73604-8) [facility] with [id number] 22:39:53 Test Item Value Reference Range Interpretation Comments WBC (test code = See_Comment [Automated 0204-2) message] The sy stem which generated this [...] RDW-SD (test code = 45.8 fL 39.0-49.9 89640-3) RDW-CV (test code = 12.7 % 12.0-15.5 788-0) PLT (test code = See_Comment [Automated 777-3) message] The sy stem which generated this result transmitted reference range : 166 - 358 10*3/ ?L. The reference r tony was not used to interpret this result as normal/abnormal . MPV (test code = 11.0 fL 9.5-12.9 95692-5) NRBC/100 WBC (test See_Comment [Automat ed code = 5784491600) message] The system which generated this result transmitted reference range : 0.0 - 10.0 /100 WBCs. The refer ence range was not u sed to interpret th is result as normal/abnormal . NRBC x10^3 (test code <0.01 See_Comment [Auto mated = 2638840746) message] The s ystem which generated this result transmitted reference range : 10*3/?L. The reference range was not used to interpret this result as normal/abnormal . GRAN MAT (NEUT) % 57.9 % (test code = 770-8) IMM GRAN % (test code 0.50 % = 0817715889) LYMPH % (test code = 23.2 % 736-9) MONO % (test code = 11.3 % 5905-5) EOS % (test code = 6.2 % 713-8) BASO % (test code = 0.9 % 706-2) GRAN MAT x10^3(ANC) 4.54 10*3/uL 1.88-7.09 (test code = 1806736560) IMM GRAN x10^3 (test 0.04 10*3/uL 0.00-0.06 code = 4833846866) LYMPH x10^3 (test code 1.82 10*3/uL 1.32-3.29 = 731-0) MONO x10^3 (test code 0.89 10*3/uL 0.33-0.92 = 742-7) EOS x10^3 (test code = 0.49 10*3/uL 0.03-0.39 H 711-2) BASO x10^3 (test code 0.07 10*3/uL 0.01-0.07 = 704-7) Lab Interpretation Abnormal (test code = 41550-3) [facility]"
[2020-12-23] MEDS ORDERED: TETANUS & DIPHTHERIA TOX,ADULT 0.5 ML VIAL ONE (12:56)
[2020-12-23] MEDS ORDERED: BUPIVACAINE 0.5% PF 10 ML VIAL ONE (14:17)
--- NOTE | 2020-12-23 14:22 | RAD REPORT ---
EXAM DESCRIPTION: RAD - Hand Left 3 View - 12/23/2020 1:57 pm CLINICAL HISTORY: injury, pain, left fifth digit smashed in car door COMPARISON: None. FINDINGS: There is a fracture present at the tip of the tuft distal phalanx fifth digit. Soft tissue swelling is present. The DIP joint is unremarkable. There is very minimal displacement of the tuft f racture fragment. No other acute bone process. There is no foreign body in the tip of the fifth digit. IMPRESSION: Tuft fracture distal phalanx fifth digit as detailed.
--- NOTE | 2020-12-23 14:36 | ER ---
Nurse's Notes [facility] Name: Suly Law Age: 40 yrs Sex: Female : 1980 Arrival Date: 12/23/2020 Time: 11:52 Bed 9 Private MD: Diagnosis: Finger Laceration;Distal Phalanx Fracture Presentation: 12/23 11:55 Chief complaint: Patient states: i slammed my finger in the car door. when i yanked. i tw2 came last night but there was like 20 people here. it happened about 8pm. Coronavirus screen: At this time, the client does not indicate any symptoms associated with coronavirus-19. Ebola Screen: Patient denies travel to an Ebola-affected area in the 21 days before illness onset. Initial Sepsis Screen: Does the patient meet any 2 criteria? No. Patient's initial sepsis screen is negative. Does the patient have a suspected source of infection? No. Patient's initial sepsis screen is negative. Risk Assessment: Do you want to hurt yourself or someone else? Patient reports no desire to harm self or others. Onset of symptoms was December 23, 2020. 11:55 Method Of Arrival: Ambulatory tw2 11:55 Acuity: LINDSEY 3 tw2 Triage Assessment: 11:57 General: Appears in no apparent distress. obese, well groomed, Behavior is calm, tw2 cooperative, appropriate for age. Pain: Complains of pain in dorsal aspect of distal phalanx of left little finger, dorsal aspect of middle phalanx of left little finger, palmar aspect of distal phalanx of left little finger and palmar aspect of middle phalanx of left little finger. Musculoskeletal: Range of motion: limited in DIP of left little finger. Injury Description: Crush injury sustained to dorsal aspect of distal phalanx of left little finger and palmar aspect of distal phalanx of left little finger was sustained 12-24 hours ago. 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 - Social history:: Smoking status: Patient reports the use of cigarette tobacco products, smokes one-half pack cigarettes per day, Patient uses alcohol, only on a social basis. Screenin:26 Abuse screen: Denies threats or abuse. Nutritional screening: No deficits noted. ap3 Tuberculosis screening: No symptoms or risk factors identified. Fall Risk None identified. Assessment: 12:25 General: Appears in no apparent distress. Behavior is calm. Pain: Complains of pain in ap3 left little finger Pain began 1 day ago. Neuro: Level of Consciousness is awake, alert, obeys commands, Oriented to person, place, time, situation, Speech is normal. Cardiovascular: Patient's skin is warm and dry. Respiratory: Airway is patent Respiratory effort is even, unlabored, Respiratory pattern is regular, symmetrical. Derm: Wound noted left little finger. 13:06 Reassessment: Patient and/or family updated on plan of care and expected duration. Pain ap3 level reassessed. Patient is alert, oriented x 3, equal unlabored respirations, skin warm/dry/pink. Vital Signs: 11:58 BP 137 / 83; Pulse 94; Resp 18; Temp 98(O); Pulse Ox 98% on R/A; Weight 119.29 kg (R); tw2 Height 5 ft. 4 in. (162.56 cm); Pain 9/10; 14:44 BP 127 / 86; Pulse 89; Pulse Ox 100% on R/A; ap3 11:58 Body Mass Index 45.14 (119.29 kg, 162.56 cm) tw2 ED Course: 11:52 Patient arrived in ED. mr 11:56 Triage completed. tw2 11:56 Arm band placed on. tw2 12:07 Bill Nugent PA is PHCP. jmm 12:07 Yan Love MD is Attending Physician. jmm 12:25 Monica Ceballos, LUIS is Primary Nurse. ap3 12:26 Patient has correct armband on for positive identification. Pulse ox on. NIBP on. Door ap3 closed. Noise minimized. 13:57 Hand Left 3 View XRAY In Process Unspecified. EDMS 14:34 Davis Agudelo MD is Referral Physician. [facility] 14:43 No provider procedures requiring assistance completed. Patient did not have IV access ap3 during this emergency room visit. Administered Medications: 13:00 Drug: Tetanus-Diphtheria Toxoid Adult 0.5 ml {Cow Washer: Adpeps. Exp: ap3 06/21/2022. Lot #: [id number]. } Route: IM; Site: left deltoid; 14:43 Follow up: Response: No adverse reaction ap3 14:36 Drug: Marcaine (bupivacaine) (0.5 %) 10 ml {Note: Administered by FELICIA Carson..} [facility] Volume: 10 ml; Route: Infiltration; 14:36 Follow up: Response: No adverse reaction 5 Outcome: 14:35 Discharge ordered by . sidney 14:43 Discharged to home ambulatory, with family. ap3 14:43 Condition: good 14:43 Discharge instructions given to patient, family, Instructed on discharge instructions, follow up and referral plans. medication usage, wound care, Demonstrated understanding of instructions, follow-up care, medications, wound care, Prescriptions given X 1. 14:46 Patient left the ED. ap3 Signatures: Dispatcher [employer] EDMS Bill Nugent PA PA jmm Rivermaricruz Jazmin Dede Shelley, RN RN tw2 Monica Ceballos RN RN ap3 Ania Smith RN RN jh5
--- NOTE | 2020-12-23 14:36 | EDPHYS ---
Physician Documentation [facility] Name: Suly Law Age: 40 yrs Sex: Female : 1980 Arrival Date: 12/23/2020 Time: 11:52 Bed 9 Private MD: ED Physician Yan Love HPI: 12/23 12:17 This 40 yrs old Female presents to ER via Ambulatory with complaints of Finger jmm Injury. 12:17 The patient or guardian reports injury, pain. Onset: The symptoms/episode jmm began/occurred acutely, 1 day(s) ago. Modifying factors: The symptoms are alleviated by nothing, the symptoms are aggravated by nothing. Associated signs and symptoms: Pertinent negatives: fever. Is a 40-year-old female with no chronic medical conditions presents emerged department with complaints of left fifth finger pain which occurred after smashing her hand in a door. This occurred yesterday. Patient is unsure on tetanus immunization status.. 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 - Social history:: Smoking status: Patient reports the use of cigarette tobacco products, smokes one-half pack cigarettes per day, Patient uses alcohol, only on a social basis. ROS: 12:17 Constitutional: Negative for fever, chills, and weight loss, Cardiovascular: Negative jmm for chest pain, palpitations, and edema, Respiratory: Negative for shortness of breath, cough, wheezing, and pleuritic chest pain. 12:17 MS/extremity: Positive for pain. 12:17 All other systems are negative. Exam: 12:17 Constitutional: This is a well developed, well nourished patient who is awake, alert, jmm and in no acute distress. Head/Face: atraumatic. Eyes: EOMI, no conjunctival erythema appreciated ENT: Moist Mucus Membranes Neck: Trachea midline, Supple Chest/axilla: Normal chest wall appearance and motion. Cardiovascular: Regular rate and rhythm. No edema appreciated Respiratory: Normal respirations, no respiratory distress appreciated Abdomen/GI: Non distended, soft Back: Normal ROM 12:17 Musculoskeletal/extremity: Full full range of motion noted to the left fifth DIP, less than 2-second distal capillary refill, decreased sensation. 12:17 Skin: Laceration noted laceration noted to the left fifth distal phalanx approximately 1 cm. 12:17 Neuro: Motor: is normal. 12:17 Psych: Behavior/mood is pleasant, cooperative. Vital Signs: 11:58 BP 137 / 83; Pulse 94; Resp 18; Temp 98(O); Pulse Ox 98% on R/A; Weight 119.29 kg (R); tw2 Height 5 ft. 4 in. (162.56 cm); Pain 9/10; 14:44 BP 127 / 86; Pulse 89; Pulse Ox 100% on R/A; ap3 11:58 Body Mass Index 45.14 (119.29 kg, 162.56 cm) tw2 MDM: 12:17 Patient medically screened. morena 14:33 Data reviewed: vital signs, nurses notes. Counseling: I had a detailed discussion with morena the patient and/or guardian regarding: the historical points, exam findings, and any diagnostic results supporting the discharge/admit diagnosis, radiology results, the need for outpatient follow up, to return to the emergency department if symptoms worsen or persist or if there are any questions or concerns that arise at home. ED course: I discussed the risks and benefits of suturing the wound over 24 hours old with the risk of infection. Patient elected not to have her finger sutured. Will treat with wet-to-dry and a finger splint. Patient given further information for hand follow-up. Patient given wound infection return precautions. Patient understood and agrees plan of care.. 12/23 12:54 Order name: Hand Left 3 View XRAY; Complete Time: 14:31 morena Administered Medications: 13:00 Drug: Tetanus-Diphtheria Toxoid Adult 0.5 ml {Mandarin Speaking Nanny: Laura Sapiens. Exp: ap3 06/21/2022. Lot #: [id number]. } Route: IM; Site: left deltoid; 14:43 Follow up: Response: No adverse reaction ap3 14:36 Drug: Marcaine (bupivacaine) (0.5 %) 10 ml {Note: Administered by PA. Yamileth.} [facility] Volume: 10 ml; Route: Infiltration; 14:36 Follow up: Response: No adverse reaction [facility] Disposition: 15:26 Co-signature as Attending Physician, Yan Love MD I agree with the assessment and rn plan of care. Attestation: The patient's history, exam findings, diagnostics, and a summary of any interventions or procedures was reviewed in detail with Bill DUARTE. Disposition Summary: 12/23/20 14:35 Discharge Ordered Location: Home [facility] Condition: Stable [facility] Diagnosis - Finger Laceration [facility] - Distal Phalanx Fracture [facility] Followup: [facility] - With: Davis Agudelo MD - When: 2 - 3 days - Reason: Recheck today's complaints, Continuance of care, Re-evaluation by your physician Discharge Instructions: - Discharge Summary Sheet jmm - Finger Fracture, Adult jmm - Nonsutured Laceration Care [facility] Forms: - Medication Reconciliation Form [facility] - Thank You Letter [facility] - Antibiotic Education [facility] - Prescription Opioid Use [facility] - Work release form ap3 Prescriptions: - Cephalexin 500 mg Oral Capsule - take 1 capsule by ORAL route every 6 hours for 10 days; 40 capsule; Refills: 0, [facility] Product Selection Permitted Signatures: Dispatcher [employer] EDBill Scales PA PA [facility] Yan Love MD MD rn Dede Shelley RN RN tw2 Monica Ceballos RN RN ap3 Ania Smith RN RN jh5
[2020-12-23 15:23] VITALS: TEMP 98
[2020-12-23 15:24] VITALS: BP 127/86; O2SAT 100
== END 2020-12-23 14:46 | disposition home or self-care (01) ==
LOC: ER 11:50
PROC: 2W3KX1Z Immobilization of Left Finger using Splint (ICD-10-PCS; principal; 2020-12-23)
DX: S62.522A Displaced fracture of distal phalanx of left thumb, initial encounter for closed fracture (principal); W23.0XXA Caught, crushed, jammed, or pinched between moving objects, initial encounter; F17.210 Nicotine dependence, cigarettes, uncomplicated
CPT/HCPCS: 90471; 90714; 99284

== ENCOUNTER 2021-01-18 05:52 | Emergency (ER) | payer SELFPAY ==
--- OUTSIDE RECORDS SUMMARY | 2021-01-18 05:54 | XMS REPORT | Continuity of Care Document ---
:1980 Author Organization [facility] Address [address] [place] [address] Care Team Providers Name Role Phone Osmani QUINONEZ Attending Clinician OSMANI Attending Clinician Unavailable Problems Condition Condition Condition Status Onset Resolution Last Treating Co mments Source Name Details Category Date Date Treatment Clinician Date No known No known Disease Unive rs active active ity of problems problems [facility] Allergies, Adverse Reactions, Alerts Allergy Allergy Status Severity Reaction(s) Onset Inactive Treating Comm ents Source Name Type Date Date Clinician NO KNOWN Drug Active Univers ALLERGIE Class ity of S [facility] Social History Social Habit Start Date Stop Date Quantity Comments Source Exposure to Not sure [facility] SARS-CoV-2 (event) [facility] Branch Sex Assigned At [birth year] [facility] 00:00:00 00:00:00 [facility] Smoking Status Start Date Stop Date Source Unknown if ever smoked [facility] Medications Ordered Filled Start Stop Current Ordering Indication Dosage Frequency Signature Comments Components Source Medication Medication Date Date Medication? Clinician (SIG) Name Name dexamethaso 2020- No 10mg 10 mg, Uni vers ne 07-26 Slow IV ity of (DECADRON 22:36: 22:41 Push, [place] PHOSPHATE) 00 :00 ONCE, 1 Medica l injection dose, Wed Branc h 10 mg 07/26/20 at 1745, [...] dose, 07/26/20 at 1730, JANUARY ibuprofen Yes [id number] 800mg Take 1 Univers 800 mg 6-18 tablet by ity of tablet 00:00: mouth [place] 00 every 8 Medical (eight) Branch hours as needed for Pain (scale 4-6). methocarbam Yes [id number] 750mg Take 1 Univers oL 750 mg 6-18 tablet by ity o f tablet 00:00: mouth 4 [place] 00 (four) Medical times Branch daily as needed (muscle spasm). predniSONE 2020- No [id number] 40mg Take 2 Univers 20 mg 6-18 06-24 tablets by ity of tablet 00:00: 04:59 mouth [place] 00 :00 daily for Medical 5 days. [place] Vital Signs Vital Name Observation Time Observation Value Comments Source Systolic blood 2020-07-26 23:37:00 127 mm[Hg] [facility] Diastolic blood 2020-07-26 23:37:00 82 mm[Hg] [facility] Heart rate 2020-07-26 23:37:00 92 /min [facility] Respiratory rate 2020-07-26 23:37:00 18 /min [facility] Oxygen saturation in 2020-07-26 23:37:00 99 /min [facility] Arterial blood by [facility] Pulse oximetry [place] Body temperature 2020-07-26 22:13:00 37.72 [facility] Body weight 2020-07-26 22:13:00 114.76 kg [facility] Procedures Procedure Date / Time Performed Performing Clinician Sour e URINALYSIS 2020-07-26 22:50:00 Caro Keen [facility] XR CHEST 1 VW 2020-07-26 22:40:28 Caro Keen [facility] HEPATIC FUNCTION PANEL 2020-07-26 22:33:00 Caro Keen [facility] ([id number]) Medical Branch (ALB,T.PRO,BILI T,BU/BC,ALT,AST,ALK PHOS) BASIC METABOLIC PANEL 2020-07-26 22:33:00 Caro Keen [facility] (NA, K, CL, CO2, Medical Branch GLUCOSE, BUN, CREATININE, CA) CBC WITH DIFF 2020-07-26 22:33:00 Caro Keen [facility] Encounters Start End Encounter Admission Attending Care Care Encounter Source Date/Time Date/Time Type Type Clinicians Facility Department ID 2020-07-26 2020-07-26 Emergency [facility] [id number] Univers 17:16:00 19:40:00 Caro Munoz [id number] i [facility] [id number] [facility] [id number] [facility] nette 084 Branch 2020-07-26 2020-07-26 Emergency [facility] [id number] Univers 17:09:00 17:09:00 CARO giraldo [facility] Results Test Description Test Time Test Comments Results Result Comments Source Urinalysis 2020-07-26 23:17:30 Test Item Value Reference Range Interpretation Comme nts APPEARANCE (test code = Hazy Clear A 3321386052) COLOR (test code = 5081769437) Renetta Yellow A PH (test code = 4744185230) 4.8-8.0 SP GRAVITY (test code = 1.003-1.030 8694860213) GLU U QUAL (test code = Normal Normal 6916866749) BLOOD (test code = 6111136357) Negative Negative KETONES (test code = 4237253105) Negative Negative PROTEIN (test code = 2887-8) Negative Negative UROBILIN (test code = Normal Normal 7122808352) BILIRUBIN (test code = Negative Negative 0403203736) NITRITE (test code = 0685457651) Negative Negative LEUK KAY (test code = 25/uL Negative A 9244644607) RBC/HPF (test code = 5678983894) See_Comment H [Automated message] The system which ge nerated this result transmit victor manuel reference range: 0 - 3 HP F. The reference range was not used to interpret th is result as normal/abnormal . WBC/HPF (test code = 5053628621) See_Comment [Automated message] The system which ge nerated this result transmit victor manuel reference range: 0 - 5 HP F. The reference range was not used to interpret th is result as normal/abnormal . BACTERIA (test code = Few Negative A 5527821621) MUCOUS (test code = 9595076368) Slight Negative LPF A SQ EPITH (test code = HPF 2876555535) Lab Interpretation (test code = Abnormal 94975-3) [facility] Metabolic Panel (NA, K, CL, CO2, GLUCOSE, BUN, CREATININE, CA)2020-07-26 22:51:34 Test Item Value Reference Range Interpretation Comments NA (test code = 137 mmol/L 135-145 5669521041) K (test code = 4.0 mmol/L 3.5-5.0 7627339247) CL (test code = 105 mmol/L 98-108 6035000550) CO2 TOTAL (test code = 25 mmol/L 23-31 7493679024) AGAP (test code = 2-16 7444823015) BUN (test code = 12 mg/dL 7-23 3048573269) GLUCOSE (test code = 106 mg/dL 70-110 2839550424) CREATININE (test code = 1.06 mg/dL 0.50-1.04 H 5987514973) CALCIUM (test code = 9.6 mg/dL 8.6-10.6 6210873932) eGFR (test code = mL/min/1.73m2 4242466159) PASHA (test code = PASHA) Association of [...] tests). Lab Interpretation Abnormal (test code = 69636-6) [facility] (ALB, T.PRO, BILI T, BU/BC, ALT, AST, ALK PHOS)2020-07-26 22:51:14 Test Item Value Reference Range Interpretation Comments TOTAL BILI (test code = 8443654055) 0.4 mg/dL 0.1-1.1 BILI UNCON (test code = 6635291150) 0.2 mg/dL 0.1-1.1 BILI CONJ (test code = 0909869147) 0.0 mg/dL 0.0-0.3 T PROTEIN (test code = 8489526969) 7.6 g/dL 6.3-8.2 ALBUMIN (test code = 4288094888) 4.3 g/dL 3.5-5.0 ALK PHOS (test code = 7123659117) 52 U/L 34-122 ALTv (test code = 1742-6) 45 U/L 5-35 H AST(SGOT) (test code = 3410911667) 33 U/L 13-40 Lab Interpretation (test code = Abnormal 76224-3) [facility] [id number] 22:39:53 Test Item Value Reference Range Interpretation Comments WBC (test code = See_Comment [Automated 4780-2) message] The sy stem which generated this [...] RDW-SD (test code = 45.8 fL 39.0-49.9 80240-4) RDW-CV (test code = 12.7 % 12.0-15.5 788-0) PLT (test code = See_Comment [Automated 777-3) message] The sy stem which generated this result transmitted reference range : 166 - 358 10*3/ ?L. The reference r tony was not used to interpret this result as normal/abnormal . MPV (test code = 11.0 fL 9.5-12.9 24950-7) NRBC/100 WBC (test See_Comment [Automat ed code = 0108509341) message] The system which generated this result transmitted reference range : 0.0 - 10.0 /100 WBCs. The refer ence range was not u sed to interpret th is result as normal/abnormal . NRBC x10^3 (test code <0.01 See_Comment [Auto mated = 7034407778) message] The s ystem which generated this result transmitted reference range : 10*3/?L. The reference range was not used to interpret this result as normal/abnormal . GRAN MAT (NEUT) % 57.9 % (test code = 770-8) IMM GRAN % (test code 0.50 % = 3662662218) LYMPH % (test code = 23.2 % 736-9) MONO % (test code = 11.3 % 5905-5) EOS % (test code = 6.2 % 713-8) BASO % (test code = 0.9 % 706-2) GRAN MAT x10^3(ANC) 4.54 10*3/uL 1.88-7.09 (test code = 0062922605) IMM GRAN x10^3 (test 0.04 10*3/uL 0.00-0.06 code = 1532331263) LYMPH x10^3 (test code 1.82 10*3/uL 1.32-3.29 = 731-0) MONO x10^3 (test code 0.89 10*3/uL 0.33-0.92 = 742-7) EOS x10^3 (test code = 0.49 10*3/uL 0.03-0.39 H 711-2) BASO x10^3 (test code 0.07 10*3/uL 0.01-0.07 = 704-7) Lab Interpretation Abnormal (test code = 82213-7) [facility]"
[2021-01-18 07:53] LABS: SARS-COV-2 RT PCR NEGATIVE (NEGATIVE)
--- NOTE | 2021-01-18 08:00 | ER ---
Nurse's Notes [facility] Name: Suly Law Age: 40 yrs Sex: Female : 1980 Arrival Date: 01/18/2021 Time: 06:05 Bed 8 Private MD: Diagnosis: Streptococcal pharyngitis Presentation: 01/18 06:21 Chief complaint: Patient states: she has had a sore throat x 2 days which is getting bb worse her neck is swollen and is hard to swallow and hard to breath she has body aches since last night and is light-headed with chills. Coronavirus screen: difficulty breathing, muscle pain. Ebola Screen: No symptoms or risks identified at this time. Initial Sepsis Screen: Does the patient meet any 2 criteria? No. Patient's initial sepsis screen is negative. Does the patient have a suspected source of infection? No. Patient's initial sepsis screen is negative. Risk Assessment: Do you want to hurt yourself or someone else? Patient reports no desire to harm self or others. Onset of symptoms was January 17, 2021. 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 - Social history:: Smoking status: unknown. Screenin:35 Abuse screen: Denies threats or abuse. Denies injuries from another. Nutritional lp1 screening: No deficits noted. Tuberculosis screening: No symptoms or risk factors identified. Fall Risk None identified. Assessment: 06:45 General: Appears in no apparent distress. Behavior is appropriate for age. Pain: lp1 Complains of pain in neck Pain currently is 6 out of 10 on a pain scale. Neuro: Level of Consciousness is awake, alert, obeys commands, Oriented to person, place, time, situation. Cardiovascular: Patient's skin is warm and dry. Respiratory: Airway is patent Respiratory effort is even, unlabored, Respiratory pattern is regular, Breath sounds are clear bilaterally. GI: No signs and/or symptoms were reported involving the gastrointestinal system. : No signs and/or symptoms were reported regarding the genitourinary system. EENT: Throat is reddened has enlarged tonsils. Derm: Skin is intact, Skin is dry, Skin is normal. Musculoskeletal: No deficits noted. 07:45 General: Appears in no apparent distress. comfortable, Behavior is calm, cooperative, al4 appropriate for age. Neuro: Level of Consciousness is awake, alert, obeys commands, Oriented to person, place, time, situation. Cardiovascular: Capillary refill < 3 seconds Patient's skin is warm and dry. Respiratory: Airway is patent Respiratory effort is even, unlabored, Respiratory pattern is regular. GI: No signs and/or symptoms were reported involving the gastrointestinal system. : No signs and/or symptoms were reported regarding the genitourinary system. EENT: Throat is reddened has enlarged tonsils. Derm: Skin is intact, Skin is dry, Skin is normal. Musculoskeletal: No deficits noted. 08:30 Reassessment: No changes from previously documented assessment. Patient is alert, al4 oriented x 3, equal unlabored respirations, skin warm/dry/pink. Vital Signs: 06:21 BP 129 / 64; Pulse 94; Resp 22 S; Temp 98.9(O); Pulse Ox 96% on R/A; Weight 114.76 kg bb (R); Height 5 ft. 4 in. (162.56 cm) (R); Pain 10/10; 07:00 BP 114 / 71; Pulse 79; Pulse Ox 98% ; al4 07:45 BP 102 / 69; Pulse 73; Pulse Ox 99% on R/A; al4 08:30 BP 116 / 68; Pulse 85; Resp 18; Pulse Ox 98% ; al4 08:30 BP 116 / 68; Pulse 84; Resp 18; Pulse Ox 98% ; Pain 0/10; al4 06:21 Body Mass Index 43.43 (114.76 kg, 162.56 cm) ED Course: 06:05 Patient arrived in ED. bp1 06:10 William Casper NP is PHCP. pm1 06:10 Crescencio Maradiaga MD is Attending Physician. pm1 06:15 Gino Aponte RN is Primary Nurse. as6 06:26 Triage completed. bb 06:26 Arm band placed on Patient placed in an exam room, on a stretcher, on pulse oximetry. bb 06:35 Patient has correct armband on for positive identification. lp1 07:11 Primary Nurse role handed off by Gnio Aponte RN eb 07:17 Darci Alexander is Primary Nurse. al4 08:37 No provider procedures requiring assistance completed. Patient did not have IV access al4 during this emergency room visit. Administered Medications: 08:15 Drug: Decadron (dexamethasone) 10 mg Route: IM; Site: right deltoid; al4 08:30 Follow up: BP 116 / 68; Pulse 84 bpm; Resp 18 bpm; Pulse Ox 98% ; Pain 0/10 Adult al4 Outcome: 08:00 Discharge ordered by MD. pm1 08:37 Discharged to home ambulatory. al4 08:37 Condition: stable 08:37 Discharge instructions given to patient, Instructed on discharge instructions, follow up and referral plans. medication usage. 08:45 Patient left the ED. al4 Signatures: Katerine Duff RN RN bb Niharika Caldera RN RN lp1 William Casper, HOSPITAL CHIEF EXECUTIVE OFFICER HOSPITAL CHIEF EXECUTIVE OFFICER pm1 Brianna Blevins Teodora Murillo [facility] Gino Aponte, LUIS SMITH as6 Darci Alexander al4
--- NOTE | 2021-01-18 08:01 | EDPHYS ---
Physician Documentation [facility] Name: Suly Law Age: 40 yrs Sex: Female : 1980 Arrival Date: 01/18/2021 Time: 06:05 Bed 8 Private MD: ED Physician Crescencio Maradiaga HPI: 01/18 06:58 This 40 yrs old Female presents to ER via Ambulatory with complaints of Sore pm1 Throat, Bodyache. 06:58 The patient presents with sore throat. The patient describes throat pain as raw, pm1 scratchy. Onset: The symptoms/episode began/occurred 2 day(s) ago. Severity of symptoms: in the emergency department the symptoms are actually worse. Modifying factors: the symptoms are aggravated by swallowing, Patient's oral intake status: good The patient has had contact with sick niece. Associated signs and symptoms: Pertinent positives: cough, body aches, Pertinent negatives chest pain, diarrhea, fever, shortness of breath, vomiting. The patient has not recently seen a physician. 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 - Social history:: Smoking status: unknown. ROS: 06:58 Eyes: Negative for injury, pain, redness, and discharge. pm1 06:58 Cardiovascular: Negative for chest pain, palpitations, and edema. 06:58 Abdomen/GI: Negative for abdominal pain, nausea, vomiting, diarrhea, and constipation, Back: Negative for injury and pain, MS/Extremity: Negative for injury and deformity, Skin: Negative for injury, rash, and discoloration, Neuro: Negative for headache, weakness, numbness, tingling, and seizure. 06:58 Constitutional: Positive for body aches, Negative for fever, poor PO intake. 06:58 ENT: Positive for sore throat, Negative for ear pain. 06:58 Respiratory: Positive for cough, Negative for shortness of breath. 06:58 All other systems are negative. Exam: 06:58 Constitutional: This is a well developed, well nourished patient who is awake, alert, pm1 and in no acute distress. Head/Face: Normocephalic, atraumatic. 06:58 Back: No spinal tenderness. No costovertebral tenderness. Full range of motion. Skin: Warm, dry with normal turgor. Normal color with no rashes, no lesions, and no evidence of cellulitis. MS/ Extremity: Pulses equal, no cyanosis. Neurovascular intact. Full, normal range of motion. 06:58 Eyes: Exam is negative for acute changes, Extraocular movements: no acute changes, Conjunctiva: no acute changes, no injection. 06:58 ENT: External ear(s): are unremarkable, Ear canal(s): are normal, TM's: are normal, Mouth: Lips: normal, moist, Oral mucosa: normal, pink and intact, moist, Posterior pharynx: Tonsils: bilaterally enlarged, with erythema, no exudate, no ulcerations, peritonsillar mass, is not appreciated. 06:58 Cardiovascular: Exam negative for acute changes, Rate: normal, Rhythm: regular, Pulses: no pulse deficits are appreciated. 06:58 Respiratory: Exam negative for acute changes, respiratory distress, shortness of breath, Breath sounds: are clear throughout. 06:58 Neuro: Exam negative for acute changes, Orientation: is normal, Mentation: is normal, Motor: is normal, moves all fours, Gait: is steady, at a normal pace, without difficulty. Vital Signs: 06:21 BP 129 / 64; Pulse 94; Resp 22 S; Temp 98.9(O); Pulse Ox 96% on R/A; Weight 114.76 kg bb (R); Height 5 ft. 4 in. (162.56 cm) (R); Pain 10/10; 07:00 BP 114 / 71; Pulse 79; Pulse Ox 98% ; al4 07:45 BP 102 / 69; Pulse 73; Pulse Ox 99% on R/A; al4 08:30 BP 116 / 68; Pulse 85; Resp 18; Pulse Ox 98% ; al4 08:30 BP 116 / 68; Pulse 84; Resp 18; Pulse Ox 98% ; Pain 0/10; al4 06:21 Body Mass Index 43.43 (114.76 kg, 162.56 cm) MDM: 06:12 Patient medically screened. pm1 07:02 Data reviewed: vital signs. Data interpreted: Pulse oximetry: on room air is 96 %. pm1 Interpretation: normal. 07:59 Counseling: I had a detailed discussion with the patient and/or guardian regarding: the pm1 historical points, exam findings, and any diagnostic results supporting the discharge/admit diagnosis, lab results, the need for outpatient follow up, to return to the emergency department if symptoms worsen or persist or if there are any questions or concerns that arise at home. 01/18 06:18 Order name: Strep; Complete Time: 07:58 pm1 01/18 06:18 Order name: COVID-19/FLU A+B (Document "Date of Onset" if Symptomatic); Complete Time: pm1 07:58 Administered Medications: 08:15 Drug: Decadron (dexamethasone) 10 mg Route: IM; Site: right deltoid; al4 08:30 Follow up: BP 116 / 68; Pulse 84 bpm; Resp 18 bpm; Pulse Ox 98% ; Pain 0/10 Adult al4 Disposition Summary: 01/18/21 08:00 Discharge Ordered Location: Home pm1 Problem: new pm1 Symptoms: have improved pm1 Condition: Stable pm1 Diagnosis - Streptococcal pharyngitis pm1 Followup: pm1 - With: Emergency Department - When: As needed - Reason: Worsening of condition Followup: pm1 - With: Private Physician - When: 2 - 3 days - Reason: Recheck today's complaints, Continuance of care, Re-evaluation by your physician Discharge Instructions: - Discharge Summary Sheet pm1 - Strep Throat, Adult pm1 Forms: - Medication Reconciliation Form pm1 - Thank You Letter pm1 - Work release form pm1 - Antibiotic Education pm1 - Prescription Opioid Use pm1 Prescriptions: - Amoxicillin 500 mg Oral Capsule - take 1 capsule by ORAL route every 8 hours for 10 days; 30 tablet; Refills: 0, pm1 Product Selection Permitted Addendum: 01/20/2021 11:12 Co-signature as Attending Physician, Crescencio Maradiaga MD I agree with the assessment and c saucedo plan of care. Signatures: Dispatcher [employer] Crescencio Burgos MD MD cha Ballard, Brenda, RN RN bb William Casper, ROLLED HAM LACER ROLLED HAM LACER pm1 Darci Alexander al4
[2021-01-18] MEDS ORDERED: dexAMETHasone 10 MG/ML VIAL ONE (08:10)
[2021-01-18 08:57] VITALS: TEMP 98.9
[2021-01-18 09:03] VITALS: BP 116/68; O2SAT 98
== END 2021-01-18 08:45 | disposition home or self-care (01) ==
LOC: ER 05:52
DX: J02.0 Streptococcal pharyngitis (principal)
CPT/HCPCS: 0240U; 87081; 96372; 99283; J1100

== ENCOUNTER 2022-12-25 16:32 | Emergency (ER) | payer BC ==
--- OUTSIDE RECORDS SUMMARY | 2022-12-25 16:37 | XMS REPORT | Continuity of Care Document ---
:1980 Author Organization [facility] t Address [address] [place] [address] Care Team Providers Name Role Phone No, Pcp [facility] Primary Care Physician Unavailable Dane Mello MD Attending Clinician [phone] Carlton Aleman MD Attending Clinician CARLTON ALEMAN Attending Clinician Unavailable DANE MELLO Attending Clinician Unavailable Korin Hilton Attending Clinician KORIN KEEN Attending Clinician Unavailable DANE MELLO Admitting Clinician Unavailable Payers Payer Name Policy Type Policy Number Effective Date Expiration Date S ource Problems Condition Condition Condition Status Onset Resolution Last Treating Co mments Source Name Details Category Date Date Treatment Clinician Date Renal Renal Disease Active [facility] insufficie 05-25 Renae kes ncy ncy 00:00: Medical 00 [place] Gastroente Gastroente Disease Active [facility]25 [facility] 00 [place] No known No known Disease Unive rs active active ity of problems problems [facility] Allergies, Adverse Reactions, Alerts Allergy Allergy Status Severity Reaction(s) Onset Inactive Treating Comm ents Source Name Type Date Date Clinician NO KNOWN Drug Active Univers ALLERGIE Class ity of S [facility] NO KNOWN Allergy Active [facility] ALLERGIE [facility] Family History Family Member Diagnosis Comments Start Date Stop Date Source Natural father Diabetes [facility] Natural mother Diabetes [facility] Natural sister Diabetes [facility] Social History Social Habit Start Date Stop Date Quantity Comments Source Sexual orientation [facility] History of tobacco Smokes tobacco [facility] use [facility] Exposure to Not sure University of SARS-CoV-2 (event) [facility] Alcohol intake 2022-05-25 2022-05-25 Current drinker RHIANNON [facility] 00:[facility]:00 00:[facility]:00 of alcohol [facility] Center (finding) History of Social 2022-05-25 2022-05-[address] [facility] function 00:00:00 00:00:00 [facility] Cigarettes smoked 2022-05-25 2022-05-[address] [facility] [address] [place] current (pack per 00:00:00 00:00:00 Medical Center day) - Reported Cigarette 2022-05-25 2022-05-[address] [facility] [address] [place] pack-years 00:00:00 00:00:00 Medical Center Tobacco use and 2022-05-25 2022-05-25 Smokeless [facility] Renae kes exposure 00:00:00 00:00:00 tobacco non-user [facility] Sex Assigned At [birth year] [facility] [address] Renae varuns 00:00:00 00:00:00 Medical Center Smoking Status Start Date Stop Date Source Smokes tobacco daily 2022-05-25 00:00:00 [facility] Unknown if ever smoked Universit y [facility] Medications Ordered Filled Start Stop Current Ordering Indication Dosage Frequency Signature Comments Components Source Medication Medication Date Date Medication? Clinician (SIG) Name Name NIFEdipine 2023- No 90mg QD Take [address] (PROCARDIA- 05-2920 tablet (90 L ukes XL) 90 MG 00:00: 23:59 mg total) Me dical (OSM) 24 hr 00 :00 by mouth Cent er tablet in the morning. ergocalcife 2023- No 80333L Q7D Take [address] rol 05-2819 capsule [facility] (ERGOCALCIF 00:00: 23:59 (50,000 Me dical TERESA) 1,250 00 :00 Units Center mcg (50,000 total) by unit) mouth once capsule a week. dexamethaso No 10mg 10 mg, Uni vers ne [...]
Fa culty member approving Restricted medication : KORIN KEEN NaCl 0.9% 2020- No 1000mL at 999 Uni vers (NS) bolus 07-26 mL/hr, ity of infusion 22:30: 00:37 1,000 mL, [place] as 1,000 mL 00 :00 IV Medical Infusion, Branch ONCE, 1 dose, 07/26/20 at 1730, JANUARY ibuprofen Yes [id number] 800mg Take 1 Univers 800 mg 6-18 tablet by ity of tablet 00:00: mouth [place] 00 every 8 Medical (eight) Branch hours as needed for Pain (scale 4-6). methocarbam Yes [id number] 750mg Take 1 Univers oL 750 mg 6-18 tablet by ity o f tablet 00:00: mouth 4 [place] 00 (four) Medical times Branch daily as needed (muscle spasm). predniSONE 2020- No [id number] 40mg Take 2 Univers 20 mg 6-18 06-24 tablets by ity of tablet 00:00: 04:59 mouth [place] 00 :00 daily for Medical 5 days. Branch Vital Signs Vital Name Observation Time Observation Value Comments Source HEIGHT 2022-05-25 18:12:00 162.6 cm WEIGHT 2022-05-25 18:12:00 125.19 kg HEIGHT 2022-05-25 18:12:00 162.6 cm WEIGHT 2022-05-25 18:12:00 125.19 kg HEIGHT 2022-05-25 18:12:00 162.6 cm WEIGHT 2022-05-25 18:12:00 125.19 kg Systolic blood 2020-07-26 23:37:00 127 mm[Hg] Univer sity of pressure [facility] Diastolic blood 2020-07-26 23:37:00 82 mm[Hg] Unive rsity of [facility] Heart rate 2020-07-26 23:37:00 92 /[facility] 2020-07-26 23:37:00 18 /min [facility] in 2020-07-26 23:37:00 99 /min [facility] Arterial blood by [facility] Pulse oximetry Branch Body temperature 2020-07-26 22:13:00 37.72 Bernice [facility] Body weight 2020-07-26 22:13:00 114.76 kg [facility] Systolic blood 2022-05-28 08:00:00 155 mm[Hg] [facility] Diastolic blood 2022-05-28 08:00:00 75 mm[Hg] [facility] Heart rate 2022-05-28 08:00:00 79 /min [facility] Body temperature 2022-05-28 08:00:00 35.94 Bernice [facility] Respiratory rate 2022-05-28 08:00:00 18 /min [facility] Oxygen saturation in 2022-05-28 08:00:00 98 /min [facility] Arterial blood by Medical nter Pulse oximetry Body height 2022-05-25 18:12:00 162.6 cm [facility] Body weight 2022-05-25 18:12:00 125.19 kg [facility] BMI 2022-05-25 18:12:00 47.37 kg/m2 [facility] Procedures Procedure Date / Time Performing Clinician Source Performed ANTI-NUCLEAR ANTIBODY 2022-05-28 05:46:00 Momo Pino [facility] COMPLEMENT COMPONENT C3 2022-05-28 05:46:00 Momo Pino [facility] BASIC METABOLIC PANEL 2022-05-28 05:46:00 Dane Mello [facility] CBC W/PLT COUNT & AUTO 2022-05-28 05:46:00 Funmilayo [facility] DIFFERENTIAL [facility] CBC W/PLT COUNT & AUTO 2022-05-28 05:46:00 Funmilayo [facility] BASIC METABOLIC PANEL 2022-05-27 06:53:00 Funmilayo [facility] CBC W/PLT COUNT & AUTO 2022-05-27 06:53:00 Funmilayo [facility] [place] [facility] PHOSPHORUS 2022-05-27 06:53:00 Alvarez [facility] VITAMIN D, 25-HYDROXY 2022-05-27 06:53:00 Alvarez [facility] IRON, TIBC, % SAT. 2022-05-27 06:53:00 Alvarez [facility] (WITHOUT FERRITIN) [facility] FERRITIN 2022-05-27 06:53:00 Alvarez [facility] Rolando [facility] CBC W/PLT COUNT & AUTO 2022-05-27 06:53:00 Funmilayo [facility] [place] [facility] BLOOD CULTURE 2022-05-26 04:05:00 Funmilayo [facility] PROCALCITONIN 2022-05-26 03:42:00 Funmilayo [facility] BASIC METABOLIC PANEL 2022-05-26 03:42:00 Funmilayo [facility] CBC W/PLT COUNT & AUTO 2022-05-26 03:42:00 Funmilayo [facility] [place] [facility] HC LAB HIV-1 AG 2022-05-26 03:42:00 Alvarez [facility] W/HIV-1&2 AB [facility] HEPATITIS PANEL, ACUTE 2022-05-26 03:42:00 Alvarez rowan [facility] HEMOGLOBIN A1C 2022-05-26 03:42:00 Alvarez, [place] CBC W/PLT COUNT & AUTO 2022-05-26 03:42:00 Funmilayo [facility] [place] [facility] BLOOD CULTURE 2022-05-26 03:41:00 Funmilayo [facility] URINALYSIS WITH 2022-05-26 02:23:00 Funmilayo [facility] MICROSCOPIC IF INDICATED [facility] PROTEIN, RANDOM URINE 2022-05-26 02:23:00 Funmilayo, [facility] CREATININE, RANDOM URINE 2022-05-26 02:23:00 Funmilayo, [facility] URINALYSIS MICROSCOPIC 2022-05-26 02:23:00 Funmilayo [facility] HEPATIC FUNCTION PANEL 2022-05-25 22:24:00 Funmilayo [facility] MAGNESIUM 2022-05-25 22:24:00 Funmilayo [facility] PHOSPHORUS 2022-05-25 22:24:00 Funmilayo [facility] BASIC METABOLIC PANEL 2022-05-25 22:24:00 Funmilayo [facility] CBC W/PLT COUNT & AUTO 2022-05-25 22:24:00 Funmilayo [facility] [place] [facility] PTH, INTACT 2022-05-25 22:24:00 Funmilayo [facility] CBC W/PLT COUNT & AUTO 2022-05-25 22:24:00 Funmilayo [facility] [place] [facility] US RENAL COMPLETE 2022-05-25 20:55:00 Funmilayo [facility] GI PATHOGEN PROFILE BY 2022-05-25 18:47:00 Funmilayo [facility] PCR [facility] URINALYSIS 2020-07-26 22:50:00 Korin Keen [facility] XR CHEST 1 VW 2020-07-26 22:40:28 Korin Keen [facility] HEPATIC FUNCTION PANEL 2020-07-26 22:33:00 [id number] (ALB,T.PRO,BILI [facility] T,BU/BC,ALT,AST,ALK PHOS) BASIC METABOLIC PANEL 2020-07-26 22:33:00 [facility] (NA, K, CL, CO2, Medical Branch GLUCOSE, BUN, CREATININE, CA) CBC WITH DIFF 2020-07-26 22:33:00 [facility] of Care Planned Activity Planned Date Details Comments Source Future Scheduled 2023-05-[address] [facility] Test 00:00:00 [facility]ing [facility] Medical Cente r Screening (12+) [code = Tobacco Cessation Counseling and Screening (12+)] Future Scheduled 2022-10-09 Influenza Vaccine (#1) [facility] 00:[facility]00 [code = Influenza Medical Ce nter Vaccine (#1)] Future Scheduled 2022-02-[address] [facility] Test 00:00:00 (12+) [code = [facility] DEPRESSION SCREENING (12+)] Future Scheduled [address] [facility] Test 00:00:00 malignant neoplasm of Medica l Center cervix (procedure) [code = 898235829] Future Scheduled [address] [facility] Test 00:00:00 (procedure) [code = [facility] [id number]] Future Scheduled 2001 DTAP/TDAP/TD VACCINES [facility] Test 00:00:00 (1 - Tdap) [code = Medical C enter DTAP/TDAP/TD VACCINES (1 - Tdap)] Future Scheduled 1988-02-27 Pneumococcal Vaccine: [facility] Test 00:00:00 0-64 Years (1 - PCV) [facility] [code = Pneumococcal Vaccine: 0-64 Years (1 - PCV)] Future Scheduled 1982 COVID-19 VACCINE (#1) [facility] Test 00:00:00 [code = COVID-[address] VACCINE (#1)] Encounters Start End Encounter Admission Attending Care Care Encounter Source Date/Time Date/Time Type Type Clinicians Facility Department ID 2022-05-25 2022-05-28 Hospital Dane Mello [facility] [id number] [facility] 17:52:00 11:25:00 Encounter Carlton Aleman [facility] 2022-05-25 2022-05-28 Inpatient ER ASH [facility] [id number] [facility] 17:52:00 11:25:00 CARLTON Med 2022-05-25 2022-05-25 Travel [facility] [id number] [facility] 00:00:00 00:00:00 [facility] 2020-07-26 2020-07-26 Emergency [facility], [facility] [id number] Univers 17:16:00 19:40:00 Korin Munoz [id number] i ty [facility] [id number] [facility] [id number] [address] 2020-07-26 2020-07-26 Emergency X [facility], [facility] ERT [id number] Univers 17:09:00 17:09:00 KORIN giraldo [facility] Results Test Description Test Time Test Comments Results Result Comments Source BLOOD CULTURE 2022-05-31 10:00:46 Test Item Value Reference Range Interpretation Comme nts CULTURE (BEAKER) (test code = 1095) No growth in 5 days BLOOD [id number] 10:00:45 Test Item Value Reference Range Interpretation Comments CULTURE (BEAKER) (test No growth in 5 days code = 1095) ANTI-NUCLEAR ANTIBODY (RENEA)2022-05-29 12:44:06 Test Item Value Reference Range Interpretation Comments ANTI-NUCLEAR ANTIBODY (RENEA) (BEAKER) Negative Negative (test code = 418) Test performed by IFA method.Test performed by IFA method.COMPLEMENT COMPONENT [id number] 10:30:53 Test Item Value Reference Range Interpretation Comments C3 COMPLEMENT (BEAKER) (test code = 137 mg/dL 82-193 393) Director Institution ID - ADMINCOMPLEMENT COMPONENT [id number] 10:30:52 Test Item Value Reference Range Interpretation Comments C4 COMPLEMENT (BEAKER) (test code = 34 mg/dL 15-57 394) Director Institution ID - ADMINBASIC METABOLIC [id number] 06:22:24 Test Item Value Reference Range Interpretation Comments SODIUM (BEAKER) 139 meq/L 135-148 (test code = 381) POTASSIUM 4.2 meq/L 3.6-5.5 (BEAKER) (test code = 379) CHLORIDE (BEAKER) 109 meq/L 98-106 H (test code = 382) CO2 (BEAKER) 20 meq/L 20-29 (test code = 355) BLOOD UREA 27 mg/dL 10-26 H NITROGEN (BEAKER) (test code = 354) CREATININE 3.36 mg/dL 0.50-1.20 H (BEAKER) (test code = 358) GLUCOSE RANDOM 89 mg/dL 70-110 (BEAKER) (test code = 652) CALCIUM (BEAKER) 8.8 mg/dL 8.5-10.5 (test code = 697) EGFR (BEAKER) 17 Interpretatio n of eGFR (test code = mL/min/1.73 values Stage De scription 1092) sq m Result G1 Letitia l or high >=90 G2 Mildly decreased 60-89 G3a Mildl y to moderately 45-5 9 G3b Moderately to s everely 30-44 G4 Severl y decreased 15-29 G5 Kidney failure <15Reported eGF R is based on the CKD-EPI 2020 equation that d oes not use a race coefficientEsti mated GFR is not as accur ate as Creatinine Susana hobson in predicting glom erular filtration rate . Estimated GFR is not appl icable for dialysis patien ts Director Institution ID - LITOOperator ID - LITOOperator ID - LITOOperator ID - LITOOperator ID - LITOOperator ID - LITOOperator ID - LITOOperator ID - LITOOperator ID - LITOOperator ID - LITOOperator ID - LITOOperator ID - LITOOperator ID - LITOCBC W/PLT COUNT & AUTO [id number] 06:01:21 Test Item Value Reference Range Interpretation Comments WHITE BLOOD CELL COUNT (BEAKER) 9.2 K/ L 4.0-10.0 (test code = 775) RED BLOOD CELL COUNT (BEAKER) 4.09 M/ L 4.00-5.00 (test code = 761) HEMOGLOBIN (BEAKER) (test code = 14.0 GM/DL 12.0-15.5 410) HEMATOCRIT (BEAKER) (test code = 39.7 % 36.0-46.0 411) MEAN CORPUSCULAR VOLUME (BEAKER) 97 fL 82-99 (test code = 753) MEAN CORPUSCULAR HEMOGLOBIN 34.2 pg 27.0-33.0 H (BEAKER) (test code = 751) MEAN CORPUSCULAR HEMOGLOBIN CONC 35.3 GM/DL 32.0-36.0 (BEAKER) (test code = 752) RED CELL DISTRIBUTION WIDTH 12.1 % 12.0-15.0 (BEAKER) (test code = 412) PLATELET COUNT (BEAKER) (test 220 K/CU MM 150-430 code = 756) MEAN PLATELET VOLUME (BEAKER) 11.3 fL 6.0-11.5 (test code = 754) NUCLEATED RED BLOOD CELLS 0 /100 WBC 0-0 (BEAKER) (test code = 413) NEUTROPHILS RELATIVE PERCENT 66 % (BEAKER) (test code = 429) LYMPHOCYTES RELATIVE PERCENT 23 % (BEAKER) (test code = 430) MONOCYTES RELATIVE PERCENT 8 % (BEAKER) (test code = 431) EOSINOPHILS RELATIVE PERCENT 3 % (BEAKER) (test code = 432) BASOPHILS RELATIVE PERCENT 0 % (BEAKER) (test code = 437) NEUTROPHILS ABSOLUTE COUNT 6.03 K/ L 1.80-8.00 (BEAKER) (test code = 670) LYMPHOCYTES ABSOLUTE COUNT 2.11 K/ L 1.48-4.50 (BEAKER) (test code = 414) MONOCYTES ABSOLUTE COUNT (BEAKER) 0.73 K/ L 0.00-1.30 (test code = 415) EOSINOPHILS ABSOLUTE COUNT 0.25 K/ L 0.00-0.50 (BEAKER) (test code = 416) BASOPHILS ABSOLUTE COUNT (BEAKER) 0.04 K/ L 0.00-0.20 (test code = 417) IMMATURE GRANULOCYTES-RELATIVE 0.50 % 0.00-0.00 H PERCENT (BEAKER) (test code = 2801) [id number] 13:13:22 Test Item Value Reference Range Interpretation Comments FERRITIN (BEAKER) (test code = 141.60 ng/mL 10.00-291.00 361) Director Institution TRAN LealVITAMIN D, [id number] 12:42:36 Test Item Value Reference Range Interpretation Comments VITAMIN D 25-OH (BEAKER) (test code 8.4 ng/mL 6.6-49.9 = 2764) Effective 11/18/2016: Reference Range ChangeNew: 6.6-49.9 ng/mL Previous: 13.0- 47.8 ng/mLRecommendedVitamin D Target Range: 30.0-40.0 ng/mLOperator ID - ADMIN IRON, TIBC, % SAT. (WITHOUT FERRITIN)2022-05-27 07:29:00 Test Item Value Reference Range Interpretation Comments IRON (BEAKER) (test code = 547) 98.0 ug/dL 45.0-170.0 TOTAL IRON BINDING CAPACITY 268 ug/dL 250-550 (BEAKER) (test code = 769) IRON % SATURATION (2) (BEAKER) 37 % 20-55 (test code = 2590) Director Institution ID - [id number] ID - [id number] METABOLIC [id number] 07:28:44 Test Item Value Reference Range Interpretation Comments SODIUM (BEAKER) 141 meq/L 135-148 (test code = 381) POTASSIUM 4.4 meq/L 3.6-5.5 (BEAKER) (test code = 379) CHLORIDE (BEAKER) 112 meq/L 98-106 H (test code = 382) CO2 (BEAKER) 19 meq/L 20-29 L (test code = 355) BLOOD UREA 26 mg/dL 10-26 NITROGEN (BEAKER) (test code = 354) CREATININE 3.49 mg/dL 0.50-1.20 H (BEAKER) (test code = 358) GLUCOSE RANDOM 91 mg/dL 70-110 (BEAKER) (test code = 652) CALCIUM (BEAKER) 8.5 mg/dL 8.5-10.5 (test code = 697) EGFR (BEAKER) 16 Interpretatio n of eGFR (test code = mL/min/1.73 values Stage De scription 1092) sq m Result G1 Letitia l or high >=90 G2 Mildly decreased 60-89 G3a Mildl y to moderately 45-5 9 G3b Moderately to s everely 30-44 G4 Severl y decreased 15-29 G5 Kidney failure <15Reported eGF R is based on the CKD-EPI 2021 equation that d oes not use a race coefficientEsti mated GFR is not as accur ate as Creatinine Susana joce in predicting glom erular filtration rate . Estimated GFR is not appl icable for dialysis patien ts Director Institution ID - [id number] ID - [id number] ID - [id number] ID - [id number] ID - [id number] ID - [id number] ID - XFHW89Rtvxlrcb ID - [id number] ID - [id number] ID - [id number] 07:19:53 Test Item Value Reference Range Interpretation Comments PHOSPHORUS (BEAKER) (test code = 4.4 mg/dL 2.5-4.5 604) Director Institution ID - [id number] ID - [id number] ID - [id number] ID - [id number] CBC W/PLT COUNT & AUTO [id number] 07:14:30 Test Item Value Reference Range Interpretation Comments WHITE BLOOD CELL COUNT (BEAKER) 10.0 K/ L 4.0-10.0 (test code = 775) RED BLOOD CELL COUNT (BEAKER) 4.07 M/ L 4.00-5.00 (test code = 761) HEMOGLOBIN (BEAKER) (test code = 14.0 GM/DL 12.0-15.5 410) HEMATOCRIT (BEAKER) (test code = 41.1 % 36.0-46.0 411) MEAN CORPUSCULAR VOLUME (BEAKER) 101 fL 82-99 H (test code = 753) MEAN CORPUSCULAR HEMOGLOBIN 34.4 pg 27.0-33.0 H (BEAKER) (test code = 751) MEAN CORPUSCULAR HEMOGLOBIN CONC 34.1 GM/DL 32.0-36.0 (BEAKER) (test code = 752) RED CELL DISTRIBUTION WIDTH 12.4 % 12.0-15.0 (BEAKER) (test code = 412) PLATELET COUNT (BEAKER) (test 213 K/CU MM 150-430 code = 756) MEAN PLATELET VOLUME (BEAKER) 11.2 fL 6.0-11.5 (test code = 754) NUCLEATED RED BLOOD CELLS 0 /100 WBC 0-0 (BEAKER) (test code = 413) NEUTROPHILS RELATIVE PERCENT 70 % (BEAKER) (test code = 429) LYMPHOCYTES RELATIVE PERCENT 19 % (BEAKER) (test code = 430) MONOCYTES RELATIVE PERCENT 8 % (BEAKER) (test code = 431) EOSINOPHILS RELATIVE PERCENT 2 % (BEAKER) (test code = 432) BASOPHILS RELATIVE PERCENT 0 % (BEAKER) (test code = 437) NEUTROPHILS ABSOLUTE COUNT 6.98 K/ L 1.80-8.00 (BEAKER) (test code = 670) LYMPHOCYTES ABSOLUTE COUNT 1.85 K/ L 1.48-4.50 (BEAKER) (test code = 414) MONOCYTES ABSOLUTE COUNT (BEAKER) 0.83 K/ L 0.00-1.30 (test code = 415) EOSINOPHILS ABSOLUTE COUNT 0.21 K/ L 0.00-0.50 (BEAKER) (test code = 416) BASOPHILS ABSOLUTE COUNT (BEAKER) 0.04 K/ L 0.00-0.20 (test code = 417) IMMATURE GRANULOCYTES-RELATIVE 0.50 % 0.00-0.00 H PERCENT (BEAKER) (test code = 2801) GI Pathogen Profile by PCR-ID [id number] 12:56:04 Test Item Value Reference Range Interpretation Comments CAMPYLOBACTER PCR (test Not detected Not detected code = 45708-5) PLESIOMONAS SHIGELLOIDES Not detected Not detected (PCR) (test code = 65817-6) SALMONELLA (PCR) (test Not detected Not detected code = 55207-8) YERSINIA ENTEROCOLITICA Not detected Not detected (PCR) (test code = 66281-3) VIBRIO CHOLERAE (PCR) Not detected Not detected (test code = 44516-9) ENTEROAGGREGATIVE E. Not detected Not detected COLI (EAEC) BY PCR (test code = 12226-6) ENTEROPATHOGENIC E. COLI Not detected Not detected (EPEC) BY PCR (test code = 11302-4) ENTEROTOXIGENIC E. COLI Not detected Not detected (ETEC) LT/ST BY PCR (test code = 41815-8) SHIGA-LIKE Not detected Not detected TOXIN-PRODUCING E. COLI (STEC) STX1/STX2 (test code = 92629-4) E. COLI O157 (PCR) (test code = 40219-5) SHIGELLA/ENTEROINVASIVE Not detected Not detected E. COLI (EIEC) BY PCR (test code = 77116-4) CRYPTOSPORIDIUM (PCR) Not detected Not detected (test code = 98617-6) CYCLOSPORA CAYETANENSIS Not detected Not detected (PCR) (test code = 11283-5) ENTAMOEBA HISTOLYTICA Not detected Not detected (PCR) (test code = 23344-9) GIARDIA LAMBLIA (PCR) Not detected Not detected (test code = 79430-3) ADENOVIRUS F 40/41 (PCR) Not detected Not detected (test code = 72770-2) ASTROVIRUS (PCR) (test Not detected Not detected code = 96402-1) NOROVIRUS GI/GII (PCR) (test code = 94010-9) ROTAVIRUS A (PCR) (test Not detected Not detected code = 11294-8) SAPOVIRUS (I, II, IV, V) Not detected Not detected BY PCR (test code = 82707-2) VIBRIO Not detected Not detected (PARAHAEMOLYTICUS, VULNIFICUS) (test code = 25054-2) PASHA (test code = PASHA) Other viruses, parasites and bacteria not targeted by this PCR panel cannot be excluded; therefore clinical correlation and follow up of serology, culture results, and other molecular studies is required. The results are not intended to be used as the sole means for clinical diagnosis or patient management decisions. This sample was tested at the [facility] Molecular Diagnostics Laboratory using the [employer] Gastrointestinal Panel. It is FDA cleared and has been verified and approved by the [facility] Molecular Diagnostics Laboratory for clinical use. This laboratory is CLIA-certified and [employer] (CAP)-accredited to perform high complexity testing. [facility] BY [id number] 12:56:04 Test Item Value Reference Range Interpretation Comments CAMPYLOBACTER (PCR) (test code = Not detected Not detected 20150813) PLESIOMONAS SHIGELLOIDES (PCR) Not detected Not detected (test code = 20150817) SALMONELLA (PCR) (test code = Not detected Not detected ) YERSINIA ENTEROCOLITICA (PCR) Not detected Not detected (test code = 20150909) VIBRIO CHOLERAE (PCR) (test code Not detected Not detected = 20150910) ENTEROAGGREGATIVE E. COLI (EAEC) Not detected Not detected BY PCR (test code = 1904879) ENTEROPATHOGENIC E. COLI (EPEC) Not detected Not detected BY PCR (test code = 0176497) ENTEROTOXIGENIC E. COLI (ETEC) Not detected Not detected LT/ST BY PCR (test code = 5518198) SHIGA-LIKE TOXIN-PRODUCING E. Not detected Not detected COLI (STEC) PCR (test code = 8009664) E. COLI O157 (PCR) (test code = 1564545) SHIGELLA/ENTEROINVASIVE E. COLI Not detected Not detected (EIEC) BY PCR (test code = 4698204) CRYPTOSPORIDIUM (PCR) (test code Not detected Not detected = 3616292) CYCLOSPORA CAYETANENSIS (PCR) Not detected Not detected (test code = 6028434) ENTAMOEBA HISTOLYTICA (PCR) Not detected Not detected (test code = 2687894) GIARDIA LAMBLIA (PCR) (test code Not detected Not detected = 2695337) ADENOVIRUS F 40/41 (PCR) (test Not detected Not detected code = 7830930) ASTROVIRUS (PCR) (test code = Not detected Not detected 20151013) NOROVIRUS GI/GII (PCR) (test code = 6258725) ROTAVIRUS A (PCR) (test code = Not detected Not detected 2408714) SAPOVIRUS (I, II, IV, V) BY PCR Not detected Not detected (test code = 4164575) VIBRIO (PARAHAEMOLYTICUS, Not detected Not detected VULNIFICUS) (test code = 7880270) Other viruses, parasites and bacteria not targeted by this PCR panel cannot be excluded; therefore clinical correlation and follow up of serology, culture results, and other molecular studies is required. The results are not intended to be used as the sole means for clinical diagnosis or patient management decisions. This sample was tested at the [facility] Molecular Diagnostics Laboratory using the [employer] Gastrointestinal Panel. It is FDA cleared and has been verified and approved by the [facility] Molecular Diagnostics Laboratory for clinical use. This laboratory is CLIA-certified and College ofAmerican Pathologists (CAP)-accredited to perform high complexity testing.HEPATITIS PANEL, [id number] 11:17:15 Test Item Value Reference Range Interpretation Comments HEPATITIS A IGM ANTIBODY (BEAKER) Nonreactive Nonreactive (test code = 498) HEPATITIS B CORE IGM ANTIBODY Nonreactive Nonreactive (BEAKER) (test code = 645) HEPATITIS C ANTIBODY (BEAKER) Nonreactive Nonreactive (test code = 367) HEPATITIS B SURFACE ANTIGEN (2) Nonreactive Nonreactive (BEAKER) (test code = 2585) Director Institution ID - [id number] 04:49:30 Test Item Value Reference Range Interpretation Comments PROCALCITONIN (BEAKER) (test code = < ng/mL <0.05 3036) SEPSIS RISK (ng/mL)Low: 0.05-0.50Intermediate: 0.51-2.00High: >=2.01HIV-1 ANTIGEN WITH HIV-1/2 [id number] 04:43:17 Test Item Value Reference Range Interpretation Comments HIV-1 ANTIGEN WITH HIV 1\\T\\2 Nonreactive Nonreactive ANTIBODY (2) (BEAKER) (test code = 2586) Director Institution ID - [id number] METABOLIC [id number] 04:26:46 Test Item Value Reference Range Interpretation Comments SODIUM (BEAKER) 137 meq/L 135-148 (test code = 381) POTASSIUM 4.1 meq/L 3.6-5.5 (BEAKER) (test code = 379) CHLORIDE (BEAKER) 109 meq/L 98-106 H (test code = 382) CO2 (BEAKER) 20 meq/L 20-29 (test code = 355) BLOOD UREA 29 mg/dL 10-26 H NITROGEN (BEAKER) (test code = 354) CREATININE 3.62 mg/dL 0.50-1.20 H (BEAKER) (test code = 358) GLUCOSE RANDOM 99 mg/dL 70-110 (BEAKER) (test code = 652) CALCIUM (BEAKER) 8.2 mg/dL 8.5-10.5 L (test code = 697) EGFR (BEAKER) 16 Interpretatio n of eGFR (test code = mL/min/1.73 values Stage De scription 1092) sq m Result G1 Letitia l or high >=90 G2 Mildly decreased 60-89 G3a Mildl y to moderately 45-5 9 G3b Moderately to s everely 30-44 G4 Sever ly decreased 15-29 G5 Kidney failure <15Repo rted eGFR is based on the CKD-EPI 2021 equation t hat does not use a race coefficientEsti mated GFR is not as accur ate as Creatinine Susana snellce in predicting glom erular filtration rate . Estimated GFR is not appl icable for dialysis patien ts Director Institution ID - [id number] ID - [id number] ID - [id number] ID - [id number] ID - [id number] ID - [id number] ID - [id number] ID - [id number] ID - [id number] ID - [id number] ID - [id number] ID - [id number] ID - [id number] [id number] 04:20:19 Test Item Value Reference Range Interpretation Comments HEMOGLOBIN A1C (BEAKER) (test code = 5.4 % 4.3-6.1 368) Director Institution ID - [id number] W/PLT COUNT & AUTO [id number] 04:08:40 Test Item Value Reference Range Interpretation Comments WHITE BLOOD CELL COUNT (BEAKER) 10.6 K/ L 4.0-10.0 H (test code = 775) RED BLOOD CELL COUNT (BEAKER) 3.77 M/ L 4.00-5.00 L (test code = 761) HEMOGLOBIN (BEAKER) (test code = 12.9 GM/DL 12.0-15.5 410) HEMATOCRIT (BEAKER) (test code = 38.9 % 36.0-46.0 411) MEAN CORPUSCULAR VOLUME (BEAKER) 103 fL 82-99 H (test code = 753) MEAN CORPUSCULAR HEMOGLOBIN 34.2 pg 27.0-33.0 H (BEAKER) (test code = 751) MEAN CORPUSCULAR HEMOGLOBIN CONC 33.2 GM/DL 32.0-36.0 (BEAKER) (test code = 752) RED CELL DISTRIBUTION WIDTH 12.8 % 12.0-15.0 (BEAKER) (test code = 412) PLATELET COUNT (BEAKER) (test 191 K/CU MM 150-430 code = 756) MEAN PLATELET VOLUME (BEAKER) 11.3 fL 6.0-11.5 (test code = 754) NUCLEATED RED BLOOD CELLS 0 /100 WBC 0-0 (BEAKER) (test code = 413) NEUTROPHILS RELATIVE PERCENT 71 % (BEAKER) (test code = 429) LYMPHOCYTES RELATIVE PERCENT 18 % (BEAKER) (test code = 430) MONOCYTES RELATIVE PERCENT 8 % (BEAKER) (test code = 431) EOSINOPHILS RELATIVE PERCENT 2 % (BEAKER) (test code = 432) BASOPHILS RELATIVE PERCENT 0 % (BEAKER) (test code = 437) NEUTROPHILS ABSOLUTE COUNT 7.49 K/ L 1.80-8.00 (BEAKER) (test code = 670) LYMPHOCYTES ABSOLUTE COUNT 1.92 K/ L 1.48-4.50 (BEAKER) (test code = 414) MONOCYTES ABSOLUTE COUNT (BEAKER) 0.88 K/ L 0.00-1.30 (test code = 415) EOSINOPHILS ABSOLUTE COUNT 0.18 K/ L 0.00-0.50 (BEAKER) (test code = 416) BASOPHILS ABSOLUTE COUNT (BEAKER) 0.03 K/ L 0.00-0.20 (test code = 417) IMMATURE GRANULOCYTES-RELATIVE 0.60 % 0.00-0.00 H PERCENT (BEAKER) (test code = 2801) Creatinine, random [id number] 02:54:04 Test Item Value Reference Range Interpretation Comments Creatinine, Ur 43.8 mg/dL (test code = 2161-8) PASHA (test code = Reference Range: No PASHA) NormalsOperator ID - [id number] [facility] [id number] 02:54:04 Test Item Value Reference Range Interpretation Comments CREATININE URINE (BEAKER) (test 43.8 mg/dL code = 375) Reference Range: No NormalsOperator ID - [id number], random urine 2022-05-26 02:52:30 Test Item Value Reference Range Interpretation Comments Protein, Urine (test code 23 mg/dL 0-14 H = 2888-6) PASHA (test code = PASHA) Director Institution ID - [id number] Lab Interpretation (test Abnormal code = 73231-1) [facility] [id number] 02:52:30 Test Item Value Reference Range Interpretation Comments PROTEIN, URINE (BEAKER) (test code = 23 mg/dL 0-14 H 1569) Director Institution ID - [id number] Microscopic [id number] 02:48:13 Test Item Value Reference Range Interpretation Comments RBC, UA (test code = <5 See_Comment [Autom ated message] 799-7) The system [employer] generated this result transmitted ref erence range: /HPF. Th e reference range was not used to int erpret this result as normal/abnormal . WBC, UA (test code = 5-10 See_Comment [Autom ated message] 44130-0) The system [employer] generated this result transmitted ref erence range: /HPF. Th e reference range was not used to int erpret this result as normal/abnormal . Bacteria, UA (test Occasional code = 83345-3) SQUAMOUS EPITHELIAL 5-10 See_Comment [Automa victor manuel message] (test code = 55392-7) The sy stem which generated this result transmitted ref erence range: /HPF. Th e reference range was not used to int erpret this result as normal/abnormal . Amorphous Crystals Rare (test code = 62199-1) [facility] [id number] 02:48:13 Test Item Value Reference Range Interpretation Comments RBC UA-MANUAL (BEAKER) (test code <5 /HPF = 1659) WBC UA-MANUAL (BEAKER) (test code 5-10 /HPF = 1661) BACTERIA (BEAKER) (test code = Occasional 517) SQUAMOUS EPITHELIAL MANUAL 5-10 /HPF (BEAKER) (test code = 1663) AMORPHOUS CRYSTALS (BEAKER) (test Rare code = 1584) Urinalysis with Microscopic If [id number] 02:39:30 Test Item Value Reference Range Interpretation Comments Color, UA (test code = 5778-6) Yellow Clarity, UA (test code = 5767-9) Clear Specific [place], UA (test code = 1.001-1.035 5811-5) pH, UA (test code = 5803-2) 6.0 5.0-8.0 Protein, UA (test code = 82086-0) Negative Negative Glucose, UA (test code = 365) Negative Negative Ketones, UA (test code = 2514-8) Negative Negative Bilirubin, UA (test code = 62249-1) Negative Negative Blood, UA (test code = 82941-2) Small Negative A Nitrite, UA (test code = 5802-4) Negative Negative Leukocytes, UA (test code = 5799-2) Small Negative A Urobilinogen, UA (test code = 0.2 23603-2) Specimen Source (test code = 2795) Lab Interpretation (test code = Abnormal 13148-3) [facility] WITH MICROSCOPIC IF [id number] 02:39:30 Test Item Value Reference Range Interpretation Comments COLOR (BEAKER) (test code = 470) Yellow CLARITY (BEAKER) (test code = 469) Clear SPECIFIC GRAVITY UA (BEAKER) (test <= 1.001-1.035 code = 468) PH UA (BEAKER) (test code = 467) 6.0 5.0-8.0 PROTEIN UA (BEAKER) (test code = Negative Negative 464) GLUCOSE UA (BEAKER) (test code = Negative Negative 365) KETONES UA (BEAKER) (test code = Negative Negative 371) BILIRUBIN UA (BEAKER) (test code = Negative Negative 462) BLOOD UA (BEAKER) (test code = 461) Small Negative A NITRITE UA (BEAKER) (test code = Negative Negative 465) LEUKOCYTE ESTERASE UA (BEAKER) (test Small Negative A code = 466) UROBILINOGEN UA (BEAKER) (test code 0.2 = 463) SOURCE(BEAKER) (test code = 2795) U/S, RENAL, [id number] 02:12:00Reason for exam:->[facility]al insufficiency [facility] 1980 Sex: FFINAL REPORT TECHNIQUE: Grayscale ultrasound of the kidneys and bladder with Doppler and spectral analysis. INDICATION: Renal insufficiency. COMPARISON: None. FINDINGS: RIGHT KIDNEY: The right kidney is 11.1 x 5.7 x 5.6 cm. Cortical thickness is 1.4 cm. No solid mass lesions. No hydronephrosis. Renal artery and vein are patent. LEFT KIDNEY: The left kidney is 11.4 x 5.3 x 4.9 cm. Cortical thickness is 1.9 cm. No solid mass lesions. No hydronephrosis. Renal artery and vein are patent. BLADDER: Unremarkable. IMPRESSION:Normal ultrasound of the kidneys. Signed: Elaine Ruelas MDReport Verified Date/Time: 05/26/2022 02:12:50 PTH, INTACT 2022-05-26 01:21:52 Test Item Value Reference Range Interpretation Comments PARATHYROID HORMONE INTACT 264.0 pg/mL 15.0-90.0 H (BEAKER) (test code = 577) BASIC METABOLIC [id number] 22:53:19 Test Item Value Reference Range Interpretation Comments SODIUM (BEAKER) 140 meq/L 135-148 (test code = 381) POTASSIUM 4.1 meq/L 3.6-5.5 (BEAKER) (test code = 379) CHLORIDE (BEAKER) 110 meq/L 98-106 H (test code = 382) CO2 (BEAKER) 17 meq/L 20-29 L (test code = 355) BLOOD UREA 29 mg/dL 10-26 H NITROGEN (BEAKER) (test code = 354) CREATININE 3.59 mg/dL 0.50-1.20 H (BEAKER) (test code = 358) GLUCOSE RANDOM 91 mg/dL 70-110 (BEAKER) (test code = 652) CALCIUM (BEAKER) 8.1 mg/dL 8.5-10.5 L (test code = 697) EGFR (BEAKER) 16 Interpretatio n of eGFR (test code = mL/min/1.73 values Stage De scription 1092) sq m Result G1 Letitia l or high >=90 G2 Mildly decreased 60-89 G3a Mildl y to moderately 45-5 9 G3b Moderately to s everely 30-44 G4 Severl y decreased 15-29 G5 Kidney failure <15Reported eGF R is based on the CKD-EPI 2020 equation that d oes not use a race coefficientEsti mated GFR is not as accur ate as Creatinine Susana hobson in predicting glom erular filtration rate . Estimated GFR is not appl icable for dialysis patien ts HEPATIC FUNCTION [id number] 22:51:17 Test Item Value Reference Range Interpretation Comments TOTAL PROTEIN (BEAKER) (test code = 6.5 gm/dL 6.0-8.5 770) ALBUMIN (BEAKER) (test code = 1145) 3.7 g/dL 3.5-5.0 BILIRUBIN TOTAL (BEAKER) (test code 0.7 mg/dL 0.1-1.2 = 377) BILIRUBIN DIRECT (BEAKER) (test 0.3 mg/dL 0.0-0.4 code = 706) ALKALINE PHOSPHATASE (BEAKER) (test 54 U/L 30-115 code = 346) AST (SGOT) (BEAKER) (test code = 20 U/L 5-40 353) ALT (SGPT) (BEAKER) (test code = 39 U/L 5-50 347) [id number] 22:50:55 Test Item Value Reference Range Interpretation Comments MAGNESIUM (BEAKER) (test code = 2.2 mg/dL 1.5-3.0 627) [id number] 22:47:53 Test Item Value Reference Range Interpretation Comments PHOSPHORUS (BEAKER) (test code = 4.8 mg/dL 2.5-4.5 H 604) CBC W/PLT COUNT & AUTO [id number] 22:37:56 Test Item Value Reference Range Interpretation Comments WHITE BLOOD CELL COUNT (BEAKER) 10.9 K/ L 4.0-10.0 H (test code = 775) RED BLOOD CELL COUNT (BEAKER) 3.78 M/ L 4.00-5.00 L (test code = 761) HEMOGLOBIN (BEAKER) (test code = 13.2 GM/DL 12.0-15.5 410) HEMATOCRIT (BEAKER) (test code = 38.5 % 36.0-46.0 411) MEAN CORPUSCULAR VOLUME (BEAKER) 102 fL 82-99 H (test code = 753) MEAN CORPUSCULAR HEMOGLOBIN 34.9 pg 27.0-33.0 H (BEAKER) (test code = 751) MEAN CORPUSCULAR HEMOGLOBIN CONC 34.3 GM/DL 32.0-36.0 (BEAKER) (test code = 752) RED CELL DISTRIBUTION WIDTH 12.8 % 12.0-15.0 (BEAKER) (test code = 412) PLATELET COUNT (BEAKER) (test 188 K/CU MM 150-430 code = 756) MEAN PLATELET VOLUME (BEAKER) 11.4 fL 6.0-11.5 (test code = 754) NUCLEATED RED BLOOD CELLS 0 /100 WBC 0-0 (BEAKER) (test code = 413) NEUTROPHILS RELATIVE PERCENT 74 % (BEAKER) (test code = 429) LYMPHOCYTES RELATIVE PERCENT 16 % (BEAKER) (test code = 430) MONOCYTES RELATIVE PERCENT 7 % (BEAKER) (test code = 431) EOSINOPHILS RELATIVE PERCENT 2 % (BEAKER) (test code = 432) BASOPHILS RELATIVE PERCENT 0 % (BEAKER) (test code = 437) NEUTROPHILS ABSOLUTE COUNT 8.09 K/ L 1.80-8.00 H (BEAKER) (test code = 670) LYMPHOCYTES ABSOLUTE COUNT 1.76 K/ L 1.48-4.50 (BEAKER) (test code = 414) MONOCYTES ABSOLUTE COUNT (BEAKER) 0.81 K/ L 0.00-1.30 (test code = 415) EOSINOPHILS ABSOLUTE COUNT 0.16 K/ L 0.00-0.50 (BEAKER) (test code = 416) BASOPHILS ABSOLUTE COUNT (BEAKER) 0.04 K/ L 0.00-0.20 (test code = 417) IMMATURE GRANULOCYTES-RELATIVE 0.50 % 0.00-0.00 H PERCENT (BEAKER) (test code = 2801) [id number] 23:17:30 Test Item Value Reference Range Interpretation Comments APPEARANCE (test code = Hazy Clear A 7552431881) COLOR (test code = Renetta Yellow A 5978868802) PH (test code = 4.8-8.0 1978683470) SP GRAVITY (test code = 1.003-1.030 4741247570) GLU U QUAL (test code = Normal Normal 1265066370) BLOOD (test code = Negative Negative 9868773845) KETONES (test code = Negative Negative 4499191319) PROTEIN (test code = Negative Negative 2887-8) UROBILIN (test code = Normal Normal 3852520486) BILIRUBIN (test code = Negative Negative 1974712163) NITRITE (test code = Negative Negative 8098355995) LEUK KAY (test code = 25/uL Negative A 3462528230) RBC/HPF (test code = See_Comment H [Autom ated message] 0716213780) The system [employer] generated this result transmitted ref erence range: 0 - 3 HP F. The reference range was not used to int erpret this result as normal/abnormal . WBC/HPF (test code = See_Comment [Autom ated message] 3493796868) The system [employer] generated this result transmitted ref erence range: 0 - 5 HP F. The reference range was not used to int erpret this result as normal/abnormal . BACTERIA (test code = Few Negative A 4980055900) MUCOUS (test code = Slight Negative LPF A 4523529834) SQ EPITH (test code = HPF 8508312792) Lab Interpretation (test Abnormal code = 45793-9) [facility] Metabolic Panel (NA, K, CL, CO2, GLUCOSE, BUN, CREATININE, CA)2020-07-26 22:51:34 Test Item Value Reference Range Interpretation Comments NA (test code = 137 mmol/L 135-145 5881832602) K (test code = 4.0 mmol/L 3.5-5.0 9272804950) CL (test code = 105 mmol/L 98-108 6299488185) CO2 TOTAL (test code = 25 mmol/L 23-31 7530624412) AGAP (test code = 2-16 3753357656) BUN (test code = 12 mg/dL 7-23 0975735291) GLUCOSE (test code = 106 mg/dL 70-110 6431735238) CREATININE (test code = 1.06 mg/dL 0.50-1.04 H 6539800406) CALCIUM (test code = 9.6 mg/dL 8.6-10.6 3823856090) eGFR (test code = mL/min/1.73m2 4692712423) PASHA (test code = PASHA) Association of [...] tests). Lab Interpretation Abnormal (test code = 38161-8) [facility] (ALB, T.PRO, BILI T, BU/BC, ALT, AST, ALK PHOS)2020-07-26 22:51:14 Test Item Value Reference Range Interpretation Comments TOTAL BILI (test code = 8280818277) 0.4 mg/dL 0.1-1.1 BILI UNCON (test code = 0407724341) 0.2 mg/dL 0.1-1.1 BILI CONJ (test code = 0232122656) 0.0 mg/dL 0.0-0.3 T PROTEIN (test code = 8944595114) 7.6 g/dL 6.3-8.2 ALBUMIN (test code = 4436945827) 4.3 g/dL 3.5-5.0 ALK PHOS (test code = 3092910243) 52 U/L 34-122 ALTv (test code = 1742-6) 45 U/L 5-35 H AST(SGOT) (test code = 6338412336) 33 U/L 13-40 Lab Interpretation (test code = Abnormal 86178-0) [facility] with [id number] 22:39:53 Test Item Value Reference Range Interpretation Comments WBC (test code = See_Comment [Automated 6690-2) message] The sy stem which generated this [...] RDW-SD (test code = 45.8 fL 39.0-49.9 57780-5) RDW-CV (test code = 12.7 % 12.0-15.5 788-0) PLT (test code = See_Comment [Automated 777-3) message] The sy stem which generated this result transmitted reference range : 166 - 358 10*3/ ?L. The reference r tony was not used to interpret this result as normal/abnormal . MPV (test code = 11.0 fL 9.5-12.9 03242-2) NRBC/100 WBC (test See_Comment [Automat ed code = 3253978483) message] The system which generated this result transmitted reference range : 0.0 - 10.0 /100 WBCs. The refer ence range was not u sed to interpret th is result as normal/abnormal . NRBC x10^3 (test code <0.01 See_Comment [Auto mated = 6217991750) message] The s ystem which generated this result transmitted reference range : 10*3/?L. The reference range was not used to interpret this result as normal/abnormal . GRAN MAT (NEUT) % 57.9 % (test code = 770-8) IMM GRAN % (test code 0.50 % = 6645381851) LYMPH % (test code = 23.2 % 736-9) MONO % (test code = 11.3 % 5905-5) EOS % (test code = 6.2 % 713-8) BASO % (test code = 0.9 % 706-2) GRAN MAT x10^3(ANC) 4.54 10*3/uL 1.88-7.09 (test code = 7393667869) IMM GRAN x10^3 (test 0.04 10*3/uL 0.00-0.06 code = 2403689976) LYMPH x10^3 (test code 1.82 10*3/uL 1.32-3.29 = 731-0) MONO x10^3 (test code 0.89 10*3/uL 0.33-0.92 = 742-7) EOS x10^3 (test code = 0.49 10*3/uL 0.03-0.39 H 711-2) BASO x10^3 (test code 0.07 10*3/uL 0.01-0.07 = 704-7) Lab Interpretation Abnormal (test code = 43497-9) [facility]"
[2022-12-25] MEDS ORDERED: FAMOTIDINE 20 MG/2 ML VIAL IV ONE (17:36)
[2022-12-25] MEDS ORDERED: NA CHLORIDE 0.9% 1,000 ML ONE (17:36)
[2022-12-25] MEDS ORDERED: METHYLPREDNISOLONE 125 MG INJ ONE (17:36)
[2022-12-25] MEDS ORDERED: DIPHENHYDRAMINE 50 MG/ML VIAL ONE (17:36)
[2022-12-25 18:01] LABS: Absolute Lymphocytes (CBC) 2.7 K/uL (0.7-4.9); Hematocrit 41.7 % (36.0-45.0); Lymphocytes % 23.2 % (15.3-44.8); MCV 100.3 fL (80-100); MPV 8.9 fL (7.6-11.3); Platelets 252 thou/uL (152-406); RBC Red Blood Cell Count 4.16 M/uL (3.86-4.86); Specific Gravity 1.012 (1.005-1.030)
[2022-12-25 18:05] LABS: Specific Gravity 1.013 (1.005-1.030); Urine Bacteria <20 /HPF (<20); Urine Bilirubin NEGATIVE (Negative); Urine Blood Trace (Negative); Urine Clarity Clear (Clear); Urine Color Colorless (Yellow); Urine Glucose NEGATIVE (Negative); Urine Mucus Slight /HPF (None Seen); Urine Protein NEGATIVE (Negative); Urine RBC <5 /HPF (None Seen); Urine Urobilinogen Normal (Normal); Urine pH 5.5 (5.0-7.0)
[2022-12-25 18:16] LABS: Albumin 3.4 g/dL (3.4-5.0); Bilirubin Total 0.3 mg/dL (0.2-1.0); Potassium 3.8 mEq/L (3.5-5.1); Protein, Total 7.4 g/dL (6.4-8.2)
--- NOTE | 2022-12-25 19:28 | EDPHYS ---
Physician Documentation [facility] Name: Suly Law Age: 42 yrs Sex: Female : 1980 Arrival Date: 12/25/2022 Time: 16:32 Bed 5 Private MD: ED Physician Crescencio Maradiaga HPI: 12/25 17:15 This 42 yrs old Female presents to ER via Ambulatory with complaints of cp Nausea, Difficulty Swallowing, Rash. 17:15 The patient presents to the emergency department with nausea, vomiting, that is cp intermittent. Onset: The symptoms/episode began/occurred this morning. Associated signs and symptoms: Pertinent positives: sore throat, facial rash, Pertinent negatives: abdominal pain, chest pain, cough, fever, wheezing, active vomiting. Patient concerned about possible allergic reaction. Noticed rash to forehead this morning about 1000, now having scratchy throat and tightness. 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 - Social history:: Smoking status: Patient reports the use of cigarette tobacco products, smokes one-half pack cigarettes per day. ROS: 17:20 Constitutional: Negative for body aches, chills, fever, poor PO intake, cp 17:20 Cardiovascular: Negative for chest pain, edema, palpitations, cp 17:20 Respiratory: Negative for cough, shortness of breath, wheezing, 17:20 Abdomen/GI: Positive for nausea and vomiting, Negative for abdominal pain, constipation, 17:20 Eyes: Negative for injury, pain, redness, and discharge, cp 17:20 ENT: Positive for sore throat, 17:20 Neck: Negative for pain with movement, pain at rest, stiffness, 17:20 : Negative for urinary symptoms, 17:20 Skin: Positive for rash, of the face, 17:20 Neuro: Negative for altered mental status, headache, weakness, cp 17:20 All other systems are negative, Exam: 17:25 Constitutional: The patient appears in no acute distress, alert, awake, non-toxic, well cp developed, well nourished, overweight 17:25 Head/face: Noted is rash, of the forehead, swelling, that is mild, of the forehead, cp 17:25 Eyes: Periorbital structures: appear normal, Pupils: equal, round, and reactive to light and accomodation, Extraocular movements: intact throughout, Conjunctiva: normal, no exudate, no injection, Sclera: no appreciated abnormality, Lids and lashes: appear normal, bilaterally, 17:25 ENT: External ear(s): are unremarkable, Ear canal(s): are normal, clear, TM's: dullness, bilaterally, Nose: is normal, Mouth: Lips: moist, Oral mucosa: pink and intact, moist, Posterior pharynx: is normal, airway is patent, no erythema, no exudate, 17:25 Neck: ROM/movement: is normal, is supple, without pain, no range of motions limitations, 17:25 Chest/axilla: Inspection: normal, 17:25 Cardiovascular: Rate: normal, Rhythm: regular, Edema: is not appreciated, JVD: is not cp appreciated, 17:25 Respiratory: the patient does not display signs of respiratory distress, Respirations: cp normal, no use of accessory muscles, no retractions, labored breathing, is not present, Breath sounds: are clear throughout, no decreased breath sounds, no stridor, no wheezing, 17:25 Abdomen/GI: Inspection: obese Palpation: abdomen is soft and non-tender, in all quadrants, 17:25 Back: pain, is absent, ROM is normal, 17:25 Neuro: Orientation: to person, place \T\ time. Mentation: is normal, Motor: moves all fours, strength is normal, Sensation: is normal, Vital Signs: 16:50 BP 141 / 84; Pulse 75; Resp 18; Temp 98.1(O); Pulse Ox 100% on R/A; Weight 74.39 kg; nj1 Height 5 ft. 4 in. ; 17:53 BP 137 / 87; Pulse 69; Resp 16 S; Pulse Ox 100% on R/A; kc6 18:52 BP 128 / 90; Pulse 63; Resp 16 S; Pulse Ox 99% on R/A; kc6 19:56 BP 124 / 86; Pulse 67; Resp 15; Pulse Ox 100% on R/A; nw1 16:50 Body Mass Index 28.15 (74.39 kg, 162.56 cm) nj1 [place] Coma Score: 19:56 Eye Response: spontaneous(4). Motor Response: obeys commands(6). Verbal Response: nw1 oriented(5). Total: 15. MDM: 16:50 Patient medically screened. 17:50 Differential diagnosis: allergic reaction viral Infection, bacterial infection, UTI, cp gastroenteritis. 19:27 Data reviewed: vital signs, nurses notes, lab test result(s). 19:27 I considered the following discharge prescriptions or medication management in the emergency department Medications were administered in the Emergency Department. See MAR. Care significantly affected by the following chronic conditions: Hypertension, Obesity. Counseling: I had a detailed discussion with the patient and/or guardian regarding the historical points, exam findings, and any diagnostic results supporting the discharge/admit diagnosis, lab results, to return to the emergency department if symptoms worsen or persist or if there are any questions or concerns that arise at home. Response to treatment: the patient's symptoms have markedly improved after treatment, and as a result, I will discharge patient. 12/25 17:07 Order name: CBC with Diff; Complete Time: 18:13 12/25 18:13 Interpretation: Normal except: WBC 11.80; MCV 100.3; EOSINOPHIL % 6.6; EOSA 0.8. 12/25 17:07 Order name: CMP; Complete Time: 19:02 12/25 19:02 Interpretation: Normal except: ALT 74; CA 8.3; GLOB 4.0; A/G 0.9; Reviewed. 12/25 17:07 Order name: Lipase; Complete Time: 19:02 12/25 17:07 Order name: Test, Urine; Complete Time: 18:13 12/25 19:03 Interpretation: Reviewed. 12/25 17:07 Order name: Urinalysis w/ reflexes; Complete Time: 18:13 12/25 18:14 Interpretation: Reviewed. 12/25 17:07 Order name: COVID-19 SARS RT PCR; Complete Time: 19:02 12/25 19:02 Interpretation: Reviewed. 12/25 17:07 Order name: Influenza Screen (a \T\ B); Complete Time: 19:02 12/25 19:02 Interpretation: Reviewed. 12/25 17:16 Order name: Magnesium; Complete Time: 19:02 12/25 18:13 Order name: Strep; Complete Time: 19:03 cp 12/25 19:03 Interpretation: Reviewed. cp 12/25 18:40 Order name: Throat Culture EDMS 12/25 17:07 Order name: IV Saline Lock; Complete Time: 17:50 cp 12/25 17:07 Order name: Labs collected and sent; Complete Time: 17:50 cp Administered Medications: 17:50 Drug: NS 0.9% IV 1000 ml IV at 1 bolus Per protocol; 1000 mL bolus Route: IV; Rate: 1 kc6 bolus; Site: right antecubital; 17:51 Drug: Famotidine IVP 20 mg IVP once; dilute with 10 mL 0.9% NaCl; give over 2 minutes kc6 Route: IVP; Site: right antecubital; 18:51 Follow up: Response: No adverse reaction kc6 17:51 Drug: diphenhydrAMINE IVP 25 mg IVP once Route: IVP; Site: right antecubital; kc6 18:52 Follow up: Response: No adverse reaction; RASS: Drowsy (-1) kc6 17:51 Drug: MethylPrednisoLONE IVP 125 mg IVP once Route: IVP; Site: right antecubital; kc6 18:52 Follow up: Response: No adverse reaction kc6 Disposition Summary: 12/25/22 19:28 Discharge Ordered Notes: Location: Home cp Problem: new cp Symptoms: have improved cp Condition: Stable cp Diagnosis - Allergy, unspecified cp - Rash and other nonspecific skin eruption cp Followup: cp - With: Private Physician - When: 2 - 3 days - Reason: Worsening of condition Discharge Instructions: - Discharge Summary Sheet cp - Allergies, Adult cp Forms: - Medication Reconciliation Form cp - Thank You Letter cp - Antibiotic Education cp - Prescription Opioid Use cp - Patient Portal Instructions cp - Leadership Thank You Letter cp Prescriptions: - Pepcid 20 mg Oral Tablet - take 1 tablet ORAL route every 12 hours for 5 days; 10 tablet; Refills: 0, cp Product Selection Permitted - Zyrtec 10 mg Oral Tablet - take 1 tablet ORAL route once daily As needed; 20 tablet; Refills: 0, Product cp Selection Permitted - Prednisone 20 mg Oral Tablet - take 2 tablets ORAL route once daily for 5 days; 10 tablet; Refills: 0, Product cp Selection Permitted Signatures: Dispatcher [employer] EDNV Crescencio Forrester PA PA cp Campbell, Kaitlyn, RN RN kc6 Letitia Cruz RN RN nj1 Corrections: (The following items were deleted from the chart) 12/26 17:03 12/25 17:20 Abdomen/GI: Positive for nausea and vomiting, diarrhea, Negative for cp abdominal pain, constipation, cp
--- NOTE | 2022-12-25 19:28 | ER ---
Nurse's Notes [facility] Name: Suly Law Age: 42 yrs Sex: Female : 1980 Arrival Date: 12/25/2022 Time: 16:32 Bed 5 Private MD: Diagnosis: Allergy, unspecified;Rash and other nonspecific skin eruption Presentation: 12/25 16:50 Chief complaint: Patient states: I think im having an allergic reaction. States she nj1 noticed a rash to her forehead at around 10am that is spreading to the rest of the head and feels like her "throat is closing". Unsure if she was exposed to anything. 16:50 Coronavirus screen: Vaccine status: Patient reports receiving the 2nd dose of the covid nj1 vaccine. Ebola Screen: Patient denies travel to an Ebola-affected area in the 21 days before illness onset. Initial Sepsis Screen: Does the patient meet any 2 criteria? No. Patient's initial sepsis screen is negative. Does the patient have a suspected source of infection? No. Patient's initial sepsis screen is negative. Risk Assessment: Do you want to hurt yourself or someone else? Patient reports no desire to harm self or others. Onset of symptoms was December 25, 2022 at 10:00. 16:50 Method Of Arrival: Ambulatory 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 - Social history:: Smoking status: Patient reports the use of cigarette tobacco products, smokes one-half pack cigarettes per day. Screenin:51 [facility] ED Fall Risk Assessment (Adult) History of falling in the last 3 months, kc6 including since admission No falls in past 3 months (0 pts) Confusion or Disorientation No (0 pts) Intoxicated or Sedated No (0 pts) Impaired Gait No (0 pts) Mobility Assist Device Used No (0 pt) Altered Elimination No (0 pt) Score/Fall Risk Level 0 - 2 = Low Risk. Abuse screen: Denies threats or abuse. Denies injuries from another. Nutritional screening: No deficits noted. Tuberculosis screening: No symptoms or risk factors identified. Assessment: 17:52 General: Appears in no apparent distress. comfortable, Behavior is calm, cooperative, kc6 appropriate for age. Pain: Denies pain. Neuro: Level of Consciousness is awake, alert, obeys commands, Oriented to person, place, time, situation, Appropriate for age. Cardiovascular: Capillary refill < 3 seconds. Respiratory: Airway is patent Trachea midline Respiratory effort is even, unlabored, Respiratory pattern is regular, symmetrical. GI: Abdomen is round Bowel sounds present X 4 quads. Abd is soft and non tender X 4 quads. Reports nausea, vomiting, Patient currently denies diarrhea. : No signs and/or symptoms were reported regarding the genitourinary system. EENT: Reports difficulty swallowing. Derm: No signs and/or symptoms reported regarding the dermatologic system. Skin is intact, is healthy with good turgor, Skin is pink, warm \\T\\ dry. Rash noted that is itchy, red, on face and back. Musculoskeletal: No signs and/or symptoms reported regarding the musculoskeletal system. Circulation, motion, and sensation intact. Capillary refill < 3 seconds, Range of motion: intact in all extremities. 18:52 Reassessment: Patient appears in no apparent distress at this time. No changes from kc6 previously documented assessment. Patient and/or family updated on plan of care and expected duration. Pain level reassessed. Patient is alert, oriented x 3, equal unlabored respirations, skin warm/dry/pink. Vital Signs: 16:50 BP 141 / 84; Pulse 75; Resp 18; Temp 98.1(O); Pulse Ox 100% on R/A; Weight 74.39 kg; nj1 Height 5 ft. 4 in. ; 17:53 BP 137 / 87; Pulse 69; Resp 16 S; Pulse Ox 100% on R/A; kc6 18:52 BP 128 / 90; Pulse 63; Resp 16 S; Pulse Ox 99% on R/A; kc6 19:56 BP 124 / 86; Pulse 67; Resp 15; Pulse Ox 100% on R/A; nw1 16:50 Body Mass Index 28.15 (74.39 kg, 162.56 cm) nj1 [place] Coma Score: 19:56 Eye Response: spontaneous(4). Motor Response: obeys commands(6). Verbal Response: nw1 oriented(5). Total: 15. ED Course: 16:34 Patient arrived in ED. rg4 16:36 [facility] Forrest[facility]. cp 16:36 Yan Love MD is Attending Physician. cp 16:51 Kimberly Wells, LUIS is Primary Nurse. ph 17:05 Triage completed. nj1 17:05 Arm band placed on right wrist. nj1 17:32 Crescencio Maradiaga MD is Attending Physician. cp 17:50 CBC with Diff Sent. kc6 17:50 CMP Sent. kc6 17:50 Lipase Sent. kc6 17:50 Test, Urine Sent. kc6 17:50 Urinalysis w/ reflexes Sent. kc6 17:50 Influenza Screen (a \\T\\ B) Sent. kc6 17:50 COVID-19 SARS RT PCR Sent. kc6 17:51 Patient has correct armband on for positive identification. Bed in low position. Call kc6 light in reach. Side rails up X 1. Adult w/ patient. Client placed on continuous cardiac and pulse oximetry monitoring. NIBP monitoring applied. 17:51 Magnesium Sent. kc6 17:51 Inserted saline lock: 20 gauge in right antecubital area, using aseptic technique. kc6 Blood collected. Patient maintains SpO2 saturation greater than 95% on room air. 19:00 Report given to LUIS Daley \\T\\ LUIS Browning. kc6 19:56 Provided Education on: discharge information. nw1 19:56 No provider procedures requiring assistance completed. IV discontinued, intact, nw1 bleeding controlled, No redness/swelling at site. Pressure dressing applied. Administered Medications: 17:50 Drug: NS 0.9% IV 1000 ml IV at 1 bolus Per protocol; 1000 mL bolus Route: IV; Rate: 1 kc6 bolus; Site: right antecubital; 17:51 Drug: Famotidine IVP 20 mg IVP once; dilute with 10 mL 0.9% NaCl; give over 2 minutes kc6 Route: IVP; Site: right antecubital; 18:51 Follow up: Response: No adverse reaction kc6 17:51 Drug: diphenhydrAMINE IVP 25 mg IVP once Route: IVP; Site: right antecubital; kc6 18:52 Follow up: Response: No adverse reaction; RASS: Drowsy (-1) kc6 17:51 Drug: MethylPrednisoLONE IVP 125 mg IVP once Route: IVP; Site: right antecubital; kc6 18:52 Follow up: Response: No adverse reaction kc6 Medication: 19:56 VIS not applicable for this client. nw1 Outcome: 19:28 Discharge ordered by . cp 19:56 Discharged to home with significant other, nw1 19:56 Condition: stable 19:56 Discharge instructions given to patient, significant other, Instructed on discharge instructions, follow up and referral plans. medication usage, allergy information. Demonstrated understanding of instructions, follow-up care, medications, Prescriptions given X 3, 20:00 Patient left the ED. nw1 Signatures: Kimberly Wells, RN RN ph Crescencio Forrester, FELICIA PA Michelle Ramírez rg4 Jesusita Bonds RN RN kc6 Letitia Cruz RN RN nj1 Nallely Rivera RN RN nw1
[2022-12-25 20:04] VITALS: TEMP 98.1
[2022-12-25 20:09] VITALS: BP 124/86; O2SAT 100
== END 2022-12-25 20:00 | disposition home or self-care (01) ==
LOC: ER 16:32
DX: R21 Rash and other nonspecific skin eruption (principal); R11.2 Nausea with vomiting, unspecified; R07.0 Pain in throat; I10 Essential (primary) hypertension; F17.210 Nicotine dependence, cigarettes, uncomplicated; T78.40XA Allergy, unspecified, initial encounter; Z11.52 Encounter for screening for COVID-19
CPT/HCPCS: 87070; 85025; 81001; 36415; 83735; 81025; 87081; 83690; 80053; 87635; 87804 ×2; 96375; 96374; 99285; J1200; J2930; J7030

== ENCOUNTER → 2023-05-01 | Emergency (ER) | payer BC ==
[~2023-05-01] MED LIST: ONDANSETRON 4 MG/2 ML VIAL ONE; TRANEXAMIC ACID 1,000 MG/10 ML VIAL IV ONE
[2023-05-01 02:13] LABS: Absolute Basophils 0.1 K/uL (0-0.5); Absolute Eosinophils 0.7 K/uL (0-0.5); Absolute Lymphocytes (CBC) 3.5 K/uL (0.7-4.9); Absolute Monocytes 0.9 K/uL (0.1-1.3); Absolute Neutrophil 6.9 K/uL (1.8-8.0); Eosinophils % 5.8 % (0-4.4); Hematocrit 37.5 % (36.0-45.0); Hemoglobin 12.6 g/dL (12.0-15.0); MCHC 33.7 g/dL (32.0-36.0); MCV 100.7 fL (80-100); MPV 8.7 fL (7.6-11.3); Monocytes % 7.6 % (3.3-12.3); Neutrophils % 56.6 % (41.7-73.7); Nucleated Red Blood Cells % 0.1 % (0-0); Platelets 246 thou/uL (152-406); RBC Red Blood Cell Count 3.73 M/uL (3.86-4.86); Red Cell Distribution Width 13.2 % (12.1-15.2)
[2023-05-01 02:28] LABS: Anion Gap 12.2 mEq/L (5.0-15.0); Potassium 3.2 mEq/L (3.5-5.1)
--- NOTE | 2023-05-01 04:13 | ER ---
Nurse's Notes [facility] Name: Suly Law Age: 43 yrs Sex: Female : 1980 Arrival Date: 05/01/2023 Time: 01:21 Bed 6 Private MD: Diagnosis: Vaginal bleeding;Uterine mass Presentation: 04/30 01:43 Chief complaint: Patient states: Vaginal bleeding onset 2 hours ago. Pt denies any cm10 pain. Pt states that she was sitting at work when the bleeding started. Coronavirus screen: Client denies travel out of the [place] in the last 14 days. At this time, the client does not indicate any symptoms associated with coronavirus-19. Ebola Screen: Patient denies travel to an Ebola-affected area in the 21 days before illness onset. No symptoms or risks identified at this time. Initial Sepsis Screen: Does the patient meet any 2 criteria? No. Patient's initial sepsis screen is negative. Does the patient have a suspected source of infection? No. Patient's initial sepsis screen is negative. Risk Assessment: Do you want to hurt yourself or someone else? Patient reports no desire to harm self or others. Onset of symptoms was May 01, 2023. 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 - Social history:: Smoking status: Patient reports the use of cigarette tobacco products, smokes one-half pack cigarettes per day, Patient uses alcohol, on a daily basis. claims drinking about a 6 pack/day. Screenin:43 [facility] ED Fall Risk Assessment (Adult) History of falling in the last 3 months, km8 including since admission No falls in past 3 months (0 pts) Confusion or Disorientation No (0 pts) Intoxicated or Sedated No (0 pts) Impaired Gait No (0 pts) Mobility Assist Device Used No (0 pt) Altered Elimination No (0 pt) Score/Fall Risk Level 0 - 2 = Low Risk Oriented to surroundings, Maintained a safe environment, Educated pt \T\ family on fall prevention, incl call for assistance when getting out of bed, Assessed \T\ reinforced patient's understanding of fall precautions, Provided non-skid footwear. Abuse screen: Denies threats or abuse. Denies injuries from another. Nutritional screening: No deficits noted. Tuberculosis screening: No symptoms or risk factors identified. Assessment: 01:50 General: Appears uncomfortable, Behavior is anxious, crying. Pain: Denies pain. Neuro: km8 Level of Consciousness is awake, alert, obeys commands, Oriented to person, place, time, situation. Cardiovascular: Denies chest pain, shortness of breath, Patient's skin is warm and dry. Respiratory: Airway is patent Respiratory effort is even, unlabored, Respiratory pattern is regular, symmetrical. GI: No signs and/or symptoms were reported involving the gastrointestinal system. : Vaginal discharge is bloody, Reports vaginal bleeding that is heavy flow. EENT: No signs and/or symptoms were reported regarding the EENT system. Derm: No signs and/or symptoms reported regarding the dermatologic system. Skin is intact, is healthy with good turgor, Skin is dry, Skin is pink, warm \T\ dry. normal, Skin temperature is warm. Musculoskeletal: No signs and/or symptoms reported regarding the musculoskeletal system. Range of motion: intact in all extremities. 03:52 Reassessment: Patient and/or family updated on plan of care and expected duration. Pain tm6 level reassessed. Patient is alert, oriented x 3, equal unlabored respirations, skin warm/dry/pink. Vital Signs: 01:43 BP 145 / 78; Pulse 94; Resp 18; Temp 97.6(O); Pulse Ox 98% on R/A; Weight 101.6 kg; cm10 Height 5 ft. 4 in. ; Pain 0/10; 02:30 BP 102 / 69; Pulse 81; Resp 16; Pulse Ox 99% on R/A; km8 03:00 BP 111 / 73; Pulse 79; Resp 16; Pulse Ox 96% on R/A; km8 03:53 BP 91 / 73; Pulse 68; Pulse Ox 97% ; Pain 0/10; tm6 04:14 BP 133 / 87; Pulse 80; Resp 16; Pulse Ox 98% on R/A; km8 01:43 Body Mass Index 38.45 (101.60 kg, 162.56 cm) cm10 01:43 Pain Scale: Adult cm10 03:53 Pain Scale: Adult tm6 [place] Coma Score: 01:43 Eye Response: spontaneous(4). Motor Response: obeys commands(6). Verbal Response: km8 oriented(5). Total: 15. ED Course: 01:27 Patient arrived in ED. gm2 01:33 Ramon Cottrell MD is Attending Physician. rt 01:43 Kori Harris, LUIS is Primary Nurse. km8 01:43 Patient has correct armband on for positive identification. Bed in low position. Call km8 light in reach. Side rails up X2. Pulse ox on. NIBP on. Warm blanket given. 01:43 Patient maintains SpO2 saturation greater than 95% on room air. km8 01:45 Triage completed. cm10 01:45 Arm band placed on Patient placed in an exam room, on a stretcher. cm10 02:03 Inserted saline lock: 20 gauge in right wrist, using aseptic technique. tm6 02:04 Abo/rh Typing Sent. tm6 02:04 Basic Metabolic Panel Sent. tm6 02:04 CBC with Diff Sent. tm6 02:04 Test, Serum Sent. tm6 02:35 Transvaginal Study Probe In Process Unspecified. EDMS 04:13 Katerina Montero MD is Referral Physician. rt 04:16 Provided Education on: d/c teaching. km8 04:16 No provider procedures requiring assistance completed. km8 04:22 IV discontinued, intact, bleeding controlled, No redness/swelling at site. Pressure km8 dressing applied. Administered Medications: 02:40 Drug: tranexamic acid 1000 mg IV at calculated rate once; administer at a rate not to km8 exceed 100 mg per min Route: IV; Rate: calculated rate; Site: right wrist; 02:54 Follow up: IV Status: Completed infusion; IV Intake: 10ml km8 02:55 Drug: Ondansetron IVP 4 mg IVP once; over 2 minutes Route: IVP; Site: right wrist; km8 04:15 Follow up: Response: No adverse reaction km8 Medication: 04:16 VIS not applicable for this client. km8 Intake: 02:54 IV: 10ml; Total: 10ml. km8 Outcome: 04:13 Discharge ordered by . rt 04:22 Discharged to home via wheelchair, with significant other, km8 04:22 Condition: good 04:22 Discharge instructions given to patient, significant other, Instructed on discharge instructions, follow up and referral plans. medication usage, Demonstrated understanding of instructions, follow-up care, medications, Prescriptions given X 1, 04:36 Patient left the ED. km8 Signatures: Dispatcher [employer] EDMS Ramon Cottrell MD MD rt Leyda Mcdonald RN RN cm10 Nasra Dash 2 Kori Harris RN RN km8 Laura Luna RN RN tm6 Corrections: (The following items were deleted from the chart) 03:53 03:52 Oxygen administration via nasal cannula \T\ 2L/min tm6 tm6
--- NOTE | 2023-05-01 04:13 | EDPHYS ---
Physician Documentation [facility] Name: Suly Law Age: 43 yrs Sex: Female : 1980 Arrival Date: 05/01/2023 Time: 01:21 Bed 6 Private MD: ED Physician Ramon Cottrell HPI: 04/30 04:18 This 43 yrs old Female presents to ER via Wheelchair with complaints of rt Vaginal Bleeding, Dizziness. 04:18 Patient presents to the ED with reported vaginal bleeding. States has been present for rt a 1 month, worsened tonight. She states that she typically has regular periods, LMP was about 3 months ago. Denies being previously. Denies any pain. Denies other acute complaints, symptoms are moderate in severity, no other aggravating or alleviating factors.. 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 - Social history:: Smoking status: Patient reports the use of cigarette tobacco products, smokes one-half pack cigarettes per day, Patient uses alcohol, on a daily basis. claims drinking about a 6 pack/day. ROS: 04:18 Constitutional: Negative for fever, chills, and weight loss, Cardiovascular: Negative rt for chest pain, palpitations, and edema, Respiratory: Negative for shortness of breath, cough, wheezing, and pleuritic chest pain, Abdomen/GI: Negative for abdominal pain, nausea, vomiting, diarrhea, and constipation, MS/Extremity: Negative for injury and deformity, Skin: Negative for injury, rash, and discoloration, Neuro: Negative for headache, weakness, numbness, tingling, and seizure, 04:18 : Positive for vaginal bleeding, Negative for burning with urination, Exam: 04:18 Constitutional: This is a well developed, well nourished patient who is awake, alert, rt and in no acute distress. Head/Face: Normocephalic, atraumatic. Chest/axilla: Normal chest wall appearance and motion. Nontender with no deformity. No lesions are appreciated. Cardiovascular: Regular rate and rhythm with a normal S1 and S2. No gallops, murmurs, or rubs. Normal PMI, no JVD. No pulse deficits. Respiratory: Lungs have equal breath sounds bilaterally, clear to auscultation and percussion. No rales, rhonchi or wheezes noted. No increased work of breathing, no retractions or nasal flaring. Abdomen/GI: Soft, non-tender, with normal bowel sounds. No distension or tympany. No guarding or rebound. No evidence of tenderness throughout. Skin: Warm, dry with normal turgor. Normal color with no rashes, no lesions, and no evidence of cellulitis. MS/ Extremity: Pulses equal, no cyanosis. Neurovascular intact. Full, normal range of motion. Neuro: Awake and alert, GCS 15, oriented to person, place, time, and situation. Cranial nerves II-XII grossly intact. Motor strength 5/5 in all extremities. Sensory grossly intact. Cerebellar exam normal. Normal gait. Vital Signs: 01:43 BP 145 / 78; Pulse 94; Resp 18; Temp 97.6(O); Pulse Ox 98% on R/A; Weight 101.6 kg; cm10 Height 5 ft. 4 in. ; Pain 0/10; 02:30 BP 102 / 69; Pulse 81; Resp 16; Pulse Ox 99% on R/A; km8 03:00 BP 111 / 73; Pulse 79; Resp 16; Pulse Ox 96% on R/A; km8 03:53 BP 91 / 73; Pulse 68; Pulse Ox 97% ; Pain 0/10; tm6 04:14 BP 133 / 87; Pulse 80; Resp 16; Pulse Ox 98% on R/A; km8 01:43 Body Mass Index 38.45 (101.60 kg, 162.56 cm) cm10 01:43 Pain Scale: Adult cm10 03:53 Pain Scale: Adult tm6 Gisele Coma Score: 01:43 Eye Response: spontaneous(4). Motor Response: obeys commands(6). Verbal Response: km8 oriented(5). Total: 15. MDM: 01:36 Patient medically screened. rt 04:55 Differential diagnosis: Uterine mass, dysfunctional uterine bleeding, ectopic rt . Data reviewed: vital signs, nurses notes, lab test result(s), radiologic studies. I considered the following discharge prescriptions or medication management in the emergency department Medications were administered in the Emergency Department. See MAR. Care significantly affected by the following chronic conditions: Hypertension. Counseling: I had a detailed discussion with the patient and/or guardian regarding the historical points, exam findings, and any diagnostic results supporting the discharge/admit diagnosis, lab results, radiology results, the need for outpatient follow up, to return to the emergency department if symptoms worsen or persist or if there are any questions or concerns that arise at home. 04/30 01:49 Order name: Abo/rh Typing; Complete Time: 02:36 rt 04/30 01:49 Order name: Basic Metabolic Panel; Complete Time: 02:36 rt 04/30 01:49 Order name: CBC with Diff; Complete Time: 02:36 rt 04/30 01:49 Order name: Test, Serum; Complete Time: 02:36 rt 04/30 03:07 Order name: ABO/RH no charge; Complete Time: 03:13 EDMS 04/30 02:35 Order name: Transvaginal Study Probe EDMS 04/30 01:49 Order name: IV Saline Lock; Complete Time: 02:03 rt 04/30 01:49 Order name: Labs collected and sent; Complete Time: 02:03 rt 04/30 01:49 Order name: NPO; Complete Time: 02:03 rt Administered Medications: 02:40 Drug: tranexamic acid 1000 mg IV at calculated rate once; administer at a rate not to km8 exceed 100 mg per min Route: IV; Rate: calculated rate; Site: right wrist; 02:54 Follow up: IV Status: Completed infusion; IV Intake: 10ml km8 02:55 Drug: Ondansetron IVP 4 mg IVP once; over 2 minutes Route: IVP; Site: right wrist; km8 04:15 Follow up: Response: No adverse reaction km8 Disposition Summary: 05/01/23 04:13 Discharge Ordered Notes: Location: Home rt Problem: new rt Symptoms: have improved rt Condition: Stable rt Diagnosis - Vaginal bleeding rt - Uterine mass rt Followup: rt - With: Katerina Montero MD - When: 2 - 3 days - Reason: Discharge Instructions: - Discharge Summary Sheet rt - Uterine Fibroids rt - Dysfunctional Uterine Bleeding rt - Pelvic Mass, Female rt - Uterine Cancer rt Forms: - Medication Reconciliation Form rt - Thank You Letter rt - Antibiotic Education rt - Prescription Opioid Use rt - Patient Portal Instructions rt - Leadership Thank You Letter rt Prescriptions: - tranexamic acid 650 mg Oral tablet - take 2 tablet ORAL route 3 times per day; 30 tablet; Refills: 0, Product rt Selection Permitted Signatures: Dispatcher [employer] EDRamon Huizar MD MD rt Leyda Mcdonald RN RN cm10 Kori Harris RN RN km8 Corrections: (The following items were deleted from the chart) 02:35 01:49 Pelvis Complete+US.RAD.BRZ ordered. EDMS EDMS
[2023-05-01 04:45] VITALS: TEMP 97.6
[2023-05-01 05:11] VITALS: BP 133/87; O2SAT 98
--- NOTE | 2023-05-01 18:16 | RAD REPORT ---
EXAM DESCRIPTION: US - Transvaginal Study Probe - 05/01/2023 2:34 am CLINICAL HISTORY: The patient is 43 years old and is Female; VAGINAL BLEEDING Bed Name: 6 TECHNIQUE: Real-time transvaginal pelvic ultrasound with image documentation. Transvaginal imaging was used for better evaluation of the endometrium and adnexa. COMPARISON: No relevant prior studies available. FINDINGS: UTERUS/CERVIX: 6.1 x 5.3 x 4.8 cm heterogenous mass centered on the inferior uterine seg ment and cervix. The uterus measures 8.7 x 3 x 3.8 cm. The endometrial stripe measures 0.5 cm in thickness. RIGHT OVARY: Normal blood flow. The right ovary measures 3.9 x 2.8 x 3.1 cm. LEFT OVARY: Multiple left-sided ovarian cysts, largest measuring up to 2.6 cm. No dedicated imaging follow-up recommended. Normal blood flow. The left ovary measures 4.8 x 2.4 x 2.3 cm. FREE FLUID: No free fluid. BLADDER: Empty bladder which cannot be evaluated with this probe. IMPRESSION: 6.1 x 5.3 x 4.8 cm heterogenous mass centered on the inferior uterine segment and cervix , highly suspicious for neoplasm. Urgent gynecological consultation recommended. Electronically signed by: Justen Simpson MD 05/01/2023 03:43 AM CDT Due to temporary technical issues with the PACS/Fluency reporting system, reports are being signed by the in house radiologists without review as a courtesy to insure prompt reporting. The interpreting radiologist is fully responsible for the content of the report.
== END ==
LOC: ER 01:21
DX: N93.9 Abnormal uterine and vaginal bleeding, unspecified (principal); N85.8 Other specified noninflammatory disorders of uterus; F17.210 Nicotine dependence, cigarettes, uncomplicated
CPT/HCPCS: 85025; 80048; 36415; 86900; 84703; 86901; 76830; 96375; 96374; 99285; J2405

== ENCOUNTER 2023-09-30 12:09 | Emergency (ER) | payer BC ==
[2023-09-30] MEDS ORDERED: MORPHINE 4 MG/ML SYR ONE (12:48)
[2023-09-30] MEDS ORDERED: ONDANSETRON 4 MG/2 ML VIAL ONE (12:48)
[2023-09-30] MEDS ORDERED: NA CHLORIDE 0.9% 1,000 ML ONE (12:49)
[2023-09-30 13:32] LABS: Absolute Lymphocytes (CBC) 0.1 K/uL (0.7-4.9); Absolute Monocytes 0.3 K/uL (0.1-1.3); Absolute Neutrophil 7.7 K/uL (1.8-8.0); Basophils % 0.2 % (0-1.3); Eosinophils % 0.6 % (0-4.4); Hematocrit 38.9 % (36.0-45.0); Hemoglobin 13.2 g/dL (12.0-15.0); Lymphocytes % 1.7 % (15.3-44.8); MCH 36.1 pg (27.0-35.0); MCHC 33.8 g/dL (32.0-36.0); MCV 106.8 fL (80-100); MPV 8.4 fL (7.6-11.3); Monocytes % 3.6 % (3.3-12.3); Neutrophils % 93.9 % (41.7-73.7); Nucleated Red Blood Cells % 0.1 % (0-0); Platelets 220 thou/uL (152-406); RBC Red Blood Cell Count 3.64 M/uL (3.86-4.86); Red Cell Distribution Width 17.9 % (12.1-15.2)
[2023-09-30 13:50] LABS: Albumin 3.9 g/dL (3.4-5.0); Albumin/Globulin Ratio 0.9 (1.1-1.8); Anion Gap 13.5 mEq/L (5.0-15.0); Bilirubin Total 0.7 mg/dL (0.2-1.0); Globulin 4.3 g/dL (2.3-3.5); Potassium 3.5 mEq/L (3.5-5.1); Protein, Total 8.2 g/dL (6.4-8.2)
[2023-09-30 14:15] LABS: Blood Morphology Comment NOTED (NOT SEEN); Macrocytosis 1+; Platelet Estimate ADEQ; White Blood Cell Scan OK (OK)
--- NOTE | 2023-09-30 15:17 | RAD REPORT ---
EXAM DESCRIPTION: CT - Abdomen Pelvis W Contrast - 09/30/2023 2:29 pm CLINICAL HISTORY: ABD PAIN COMPARISON: Abdomen Pelvis W Contrast dated 09/04/2023; Abdomen Pelvis Wo Contrast dated 3 TECHNIQUE: Thin cut axial CT imaging of the abdomen and pelvis was performed following intravenous a dministration of 100 mL Isovue 300. Multiplanar reformats were generated and reviewed. All CT scans are performed using dose optimization technique as appropriate and may include automated exposure control or mA/KV adjustment according to patient size. FINDINGS: No suspicious findings in the lung bases. The liver, spleen, and pancreas show no suspicious findings. Left adrenal nodule measures approximate ly 1-2 mm larger in size than on the prior exam. Bilateral adrenal thickening with some subtle nodula rity on the right, largest not exceeding 5 mm, stable. Gallbladder and biliary tree are also without suspicious finding. Symmetric renal function is seen with no hydronephrosis or suspicious renal mass. No dilated bowel loops or bowel wall thickening. Diffuse colonic and distal small bowel fluid opacifi cation with mild mucosal hyperenhancement. Appendix is unremarkable. No free air, free fluid or infla mmatory stranding. No hernia, mass or bulky lymphadenopathy. The urinary bladder is without significa nt finding. No suspicious bony findings. IMPRESSION: Fluid opacification of nondistended distal small bowel and colon, nonspecific but sugges ts infectious/inflammatory enterocolitis. Essentially stable bilateral adrenal nodules as above, stability suggests benign nature, although thi s is not fully characterized.
--- NOTE | 2023-09-30 15:42 | EDPHYS ---
Physician Documentation [facility] Name: Suly Law Age: 43 yrs Sex: Female : 1980 Arrival Date: 09/30/2023 Time: 12:09 Bed 5 Private MD: ED Physician Ramon Cottrell HPI: 09/29 13:22 This 43 yrs old Female presents to ER via EMS with complaints of Abdominal rt Pain, Nausea/Vomiting/Diarrhea. 13:22 Patient with history of uterine cancer, currently undergoing treatments presents to the rt ED with right lower quadrant pain, nausea, vomiting, diarrhea for about 30 minutes. States that the pain is sharp in nature, nonradiating, severe in severity. No other aggravating or elevating factors. Of note, patient had a similar presentation about 1 month ago with a negative workup. She has an appoint with a GI doctor next week.. Historical: - Allergies: 12:58 No Known Allergies; ld1 - PMHx: 12:58 Hypertensive disorder; Cancer (Hypertensive disorder); ld1 - Immunization history:: Adult Immunizations up to date. - Infectious Disease History:: Denies. - Social history:: Smoking status: Patient denies any tobacco usage or history of. - Family history:: not pertinent. ROS: 13:22 Constitutional: Negative for fever, chills, and weight loss, Cardiovascular: Negative rt for chest pain, palpitations, and edema, Respiratory: Negative for shortness of breath, cough, wheezing, and pleuritic chest pain, MS/Extremity: Negative for injury and deformity, Skin: Negative for injury, rash, and discoloration, Neuro: Negative for headache, weakness, numbness, tingling, and seizure, 13:22 Abdomen/GI: Positive for abdominal pain, nausea, vomiting, and diarrhea, Exam: 13:22 Constitutional: This is a well developed, well nourished patient who is awake, alert, rt and in no acute distress. Head/Face: Normocephalic, atraumatic. Chest/axilla: Normal chest wall appearance and motion. Nontender with no deformity. No lesions are appreciated. Cardiovascular: Regular rate and rhythm with a normal S1 and S2. No gallops, murmurs, or rubs. Normal PMI, no JVD. No pulse deficits. Respiratory: Lungs have equal breath sounds bilaterally, clear to auscultation and percussion. No rales, rhonchi or wheezes noted. No increased work of breathing, no retractions or nasal flaring. Skin: Warm, dry with normal turgor. Normal color with no rashes, no lesions, and no evidence of cellulitis. MS/ Extremity: Pulses equal, no cyanosis. Neurovascular intact. Full, normal range of motion. Neuro: Awake and alert, GCS 15, oriented to person, place, time, and situation. Cranial nerves II-XII grossly intact. Motor strength 5/5 in all extremities. Sensory grossly intact. Cerebellar exam normal. Normal gait. 13:22 Abdomen/GI: Tenderness to the right lower quadrant without rebound, guarding, distention, Vital Signs: 12:15 BP 130 / 90; Pulse 80; Resp 18; Pulse Ox 100% on R/A; Weight 108.86 kg; Height 5 ft. 4 ph in. ; 13:30 BP 126 / 88; Pulse 84; Resp 18; Pulse Ox 100% on R/A; ld1 15:00 BP 132 / 79; Pulse 76; Resp 18; Pulse Ox 100% on R/A; ld1 16:20 BP 130 / 84; Pulse 80; Resp 18; Pulse Ox 99% on R/A; ld1 12:15 Body Mass Index 41.20 (108.86 kg, 162.56 cm) ph MDM: 12:29 Patient medically screened. rt 15:54 Differential diagnosis: Gastroenteritis, colitis, bowel obstruction, electrolyte rt disturbance. Data reviewed: vital signs, nurses notes, lab test result(s), radiologic studies. I considered the following discharge prescriptions or medication management in the emergency department Medications were administered in the Emergency Department. See MAR. Independent interpretation of the following test(s) in the Emergency Department CT Scan: My interpretation is No bowel obstruction seen on interpretation of CT scan images. Care significantly affected by the following chronic conditions: Hypertension, Uterine cancer. Counseling: I had a detailed discussion with the patient and/or guardian regarding the historical points, exam findings, and any diagnostic results supporting the discharge/admit diagnosis, lab results, radiology results, the need for outpatient follow up, to return to the emergency department if symptoms worsen or persist or if there are any questions or concerns that arise at home. Response to treatment: the patient's symptoms have markedly improved after treatment. 09/29 12:34 Order name: CBC with Diff; Complete Time: 15:17 rt 09/29 12:34 Order name: CMP; Complete Time: 15:17 rt 09/29 12:34 Order name: Lipase; Complete Time: 15:17 rt 09/29 13:40 Order name: CBC Smear Scan; Complete Time: 15:17 EDMS 09/29 12:34 Order name: CT Abd/Pelvis - IV Contrast Only; Complete Time: 15:17 rt 09/29 12:34 Order name: IV Saline Lock; Complete Time: 12:57 rt 09/29 12:34 Order name: Labs collected and sent; Complete Time: 13:28 rt Administered Medications: 12:57 Drug: NS 0.9% IV 1000 ml IV at 1 bolus Per protocol; 1000 mL bolus Route: IV; Rate: 1 iw bolus; Site: left hand; 14:00 Follow up: Response: No adverse reaction; IV Status: Completed infusion; IV Intake: ld1 1000ml 12:57 Drug: Ondansetron IVP 4 mg IVP once; over 2 minutes Route: IVP; Site: left hand; iw 13:30 Follow up: Response: No adverse reaction ld1 12:57 Drug: morphine IVP or IV 4 mg IVP once over 4 mins Route: IVP; Infused Over: 4 mins; iw Site: left antecubital; 13:30 Follow up: Response: No adverse reaction; Pain is decreased ld1 Disposition Summary: 09/30/23 15:41 Discharge Ordered Notes: Location: Home rt Problem: new rt Symptoms: have improved rt Condition: Stable rt Diagnosis - Nausea and vomiting rt - Diarrhea rt - Abdominal pain rt Followup: rt - With: Private Physician - When: 5 - 6 days - Reason: Discharge Instructions: - Discharge Summary Sheet rt - Abdominal Pain, Adult rt - Diarrhea, Adult rt - Nausea and Vomiting, Adult rt Forms: - Medication Reconciliation Form rt - Antibiotic Education rt - Prescription Opioid Use rt - Patient Portal Instructions rt - Leadership Thank You Letter rt Prescriptions: - acetaminophen-codeine 300-30 mg Oral tablet - take 1 tablet ORAL route every 6 hours as needed for pain; 15 tablet; Refills: rt 0, Product Selection Permitted - ondansetron 4 mg Oral Tablet,disintegrating - take 1 tablet ORAL route every 6 hours as needed for nausea; 30 tablet; rt Refills: 0, Product Selection Permitted - dicyclomine 10 mg Oral capsule - take 1 capsule ORAL route 3 times per day as needed for pain; 30 capsule; rt Refills: 0, Product Selection Permitted Signatures: Dispatcher [employer] Loni Arteaga RN RN iw Serenity Norton RN RN ld1 Ramon Cottrell MD MD rt
--- NOTE | 2023-09-30 15:42 | ER ---
Nurse's Notes [facility] Name: Suly Law Age: 43 yrs Sex: Female : 1980 Arrival Date: 09/30/2023 Time: 12:09 Bed 5 Private MD: Diagnosis: Nausea and vomiting;Diarrhea;Abdominal pain Presentation: 09/29 12:15 Chief complaint: EMS states: EMS called for sudden onset of RLQ pain, N/V/D, pt also ph c/o dizziness, was pale and diaphoretic on scene, given 4 mg of Zofran and NS, was seen in ED for same issue approx 3 weeks ago. Coronavirus screen: Vaccine status: Patient reports receiving the 2nd dose of the covid vaccine. Ebola Screen: No symptoms or risks identified at this time. 12:15 Method Of Arrival: EMS: [facility] ph 12:15 Acuity: LIND[facility] 3 ph 12:15 Initial Sepsis Screen: Does the patient meet any 2 criteria? No. Patient's initial ld1 sepsis screen is negative. Does the patient have a suspected source of infection? No. Patient's initial sepsis screen is negative. Risk Assessment: Do you want to hurt yourself or someone else? Patient reports no desire to harm self or others. 12:15 Onset of symptoms was September 30, 2023 at 17:04. ld1 12:15 Onset of symptoms was September 30, 2023. ld1 Triage Assessment: 12:58 General: Appears in no apparent distress. uncomfortable, Behavior is calm, cooperative, ld1 appropriate for age. Pain: Complains of pain in abdomen Pain does not radiate. Pain currently is 8 out of 10 on a pain scale. Quality of pain is described as throbbing, Pain began suddenly, Is continuous. EENT: No signs and/or symptoms were reported regarding the EENT system. Neuro: Level of Consciousness is awake, alert, obeys commands, Oriented to person, place, time, situation, Appropriate for age. Cardiovascular: Capillary refill < 3 seconds Patient's skin is warm and dry. Respiratory: Airway is patent Respiratory effort is even, unlabored. GI: Abdomen is round non-distended, Reports lower abdominal pain, diarrhea, nausea, vomiting. : No signs and/or symptoms were reported regarding the genitourinary system. Derm: No signs and/or symptoms reported regarding the dermatologic system. Musculoskeletal: No signs and/or symptoms reported regarding the musculoskeletal system. Historical: - Allergies: 12:58 No Known Allergies; ld1 - PMHx: 12:58 Hypertensive disorder; Cancer (Hypertensive disorder); ld1 - Immunization history:: Adult Immunizations up to date. - Infectious Disease History:: Denies. - Social history:: Smoking status: Patient denies any tobacco usage or history of. - Family history:: not pertinent. Screenin:59 [facility] ED Fall Risk Assessment (Adult) History of falling in the last 3 months, ld1 including since admission No falls in past 3 months (0 pts) Confusion or Disorientation No (0 pts) Intoxicated or Sedated No (0 pts) Impaired Gait No (0 pts) Mobility Assist Device Used No (0 pt) Altered Elimination No (0 pt) Score/Fall Risk Level 0 - 2 = Low Risk Oriented to surroundings, Maintained a safe environment, Educated pt \T\ family on fall prevention, incl call for assistance when getting out of bed, Assessed \T\ reinforced patient's understanding of fall precautions, Provided non-skid footwear, Hourly rounding (assess needs \T\ fall precautionary measures) done, Used ambulatory aids as needed (educated on \T\ assisted with), Used gait belt as appropriate. Abuse screen: Denies threats or abuse. Denies injuries from another. Nutritional screening: No deficits noted. Tuberculosis screening: No symptoms or risk factors identified. Assessment: 12:59 Reassessment: See triage assessment. ld1 13:00 GI: Bowel sounds present X 4 quads. Abd is soft Abd is non tender. ld1 13:58 Reassessment: Patient appears in no apparent distress at this time. No changes from ld1 previously documented assessment. Patient and/or family updated on plan of care and expected duration. Pain level reassessed. 15:00 Reassessment: Patient appears in no apparent distress at this time. No changes from ld1 previously documented assessment. Patient and/or family updated on plan of care and expected duration. Pain level reassessed. 16:19 Reassessment: Patient appears in no apparent distress at this time. No changes from ld1 previously documented assessment. Patient and/or family updated on plan of care and expected duration. Pain level reassessed. Patient is alert, oriented x 3, equal unlabored respirations, skin warm/dry/pink. Vital Signs: 12:15 BP 130 / 90; Pulse 80; Resp 18; Pulse Ox 100% on R/A; Weight 108.86 kg; Height 5 ft. 4 ph in. ; 13:30 BP 126 / 88; Pulse 84; Resp 18; Pulse Ox 100% on R/A; ld1 15:00 BP 132 / 79; Pulse 76; Resp 18; Pulse Ox 100% on R/A; ld1 16:20 BP 130 / 84; Pulse 80; Resp 18; Pulse Ox 99% on R/A; ld1 12:15 Body Mass Index 41.20 (108.86 kg, 162.56 cm) ph ED Course: 12:14 Patient arrived in ED. ph 12:16 Ramon Cottrell MD is Attending Physician. rt 12:20 Triage completed. ph 12:58 Serenity Norton, LUIS is Primary Nurse. ld1 12:58 Arm band placed on right wrist. ld1 12:59 Patient has correct armband on for positive identification. Placed in gown. Bed in low ld1 position. Call light in reach. Side rails up X2. ekg monitor on. Pulse ox on. NIBP on. Door closed. Noise minimized. Warm blanket given. 12:59 No provider procedures requiring assistance completed. Maintain EMS IV. Dressing ld1 intact. Good blood return noted. Site clean \T\ dry. Gauge \T\ site: 20G LH. 13:27 Initial lab(s) drawn, by me, sent to lab. Inserted saline lock: 22 gauge in right zm forearm, using aseptic technique. Blood collected. Flushed with 10 mL NS. 13:28 CBC with Diff Sent. zm 13:28 CMP Sent. zm 13:28 Lipase Sent. zm 14:00 IV discontinued, intact, bleeding controlled, No redness/swelling at site. ld1 14:31 CT Abd/Pelvis - IV Contrast Only In Process Unspecified. EDMS Administered Medications: 12:57 Drug: NS 0.9% IV 1000 ml IV at 1 bolus Per protocol; 1000 mL bolus Route: IV; Rate: 1 iw bolus; Site: left hand; 14:00 Follow up: Response: No adverse reaction; IV Status: Completed infusion; IV Intake: ld1 1000ml 12:57 Drug: Ondansetron IVP 4 mg IVP once; over 2 minutes Route: IVP; Site: left hand; iw 13:30 Follow up: Response: No adverse reaction ld1 12:57 Drug: morphine IVP or IV 4 mg IVP once over 4 mins Route: IVP; Infused Over: 4 mins; Site: left antecubital; 13:30 Follow up: Response: No adverse reaction; Pain is decreased ld1 Medication: 14:00 VIS not applicable for this client. ld1 Intake: 14:00 IV: 1000ml; Total: 1000ml. ld1 Outcome: 15:41 Discharge ordered by . rt 16:26 Patient left the ED. ld1 16:26 Discharged to home ambulatory, ld1 16:26 Condition: stable 16:26 Discharge instructions given to patient, Instructed on discharge instructions, follow up and referral plans. Demonstrated understanding of instructions, follow-up care, Signatures: Dispatcher [employer] Loni Arteaga RN RN Kimberly Wells RN RN Serenity Norton RN RN ld1 Tootie Mcdonald Ryan, MD MD rt
[2023-09-30 16:50] VITALS: BP 130/84; O2SAT 99
== END 2023-09-30 16:26 | disposition home or self-care (01) ==
LOC: ER 12:09
DX: R10.9 Unspecified abdominal pain (principal); R11.2 Nausea with vomiting, unspecified; R19.7 Diarrhea, unspecified; C55 Malignant neoplasm of uterus, part unspecified; I10 Essential (primary) hypertension
CPT/HCPCS: 85025; 36415; 83690; 80053; 74177; 99285; Q9967; J2405; J7030

== ENCOUNTER 2024-01-03 10:43 | Inpatient (IN) | payer BC ==
[2024-01-03] MEDS ORDERED: ONDANSETRON 4 MG/2 ML VIAL ONE (11:56)
[2024-01-03] MEDS ORDERED: MORPHINE 4 MG/ML SYR ONE (11:57)
[2024-01-03] MEDS ORDERED: FAMOTIDINE 20 MG/2 ML VIAL IV ONE (11:57)
[2024-01-03] MEDS ORDERED: NA CHLORIDE 0.9% 3,000 ML ONE (11:58)
[2024-01-03] MEDS ORDERED: CEFEPIME 1 GM/VIAL ONE ×2 (11:58→13:42)
[2024-01-03] MEDS ORDERED: NA CHLORIDE 0.9% 100 ML ONE ×2 (11:58→13:42)
[2024-01-03 12:32] LABS: Absolute Lymphocytes (CBC) 0.2 K/uL (0.7-4.9); Absolute Monocytes 0.2 K/uL (0.1-1.3); Absolute Neutrophil 7.7 K/uL (1.8-8.0); Basophils % 0.1 % (0-1.3); Eosinophils % 0.2 % (0-4.4); Hematocrit 44.7 % (36.0-45.0); MCH 35.2 pg (27.0-35.0); MCHC 33.5 g/dL (32.0-36.0); MCV 104.9 fL (80-100); MPV 8.6 fL (7.6-11.3); Monocytes % 2.8 % (3.3-12.3); Neutrophils % 94.9 % (41.7-73.7); Nucleated Red Blood Cells % 0.1 % (0-0); Platelets 246 thou/uL (152-406); RBC Red Blood Cell Count 4.27 M/uL (3.86-4.86); Red Cell Distribution Width 14.5 % (12.1-15.2)
[2024-01-03 12:34] LABS: PT Prothrombin Time 11.9 SECONDS (9.4-12.5); Protime INR 1.06
[2024-01-03 12:50] LABS: Albumin 4.1 g/dL (3.4-5.0); Albumin/Globulin Ratio 0.9 (1.1-1.8); Anion Gap 10.4 mEq/L (5.0-15.0); Bilirubin Direct 0.2 mg/dL (0-0.2); Bilirubin Indirect, Calculated 0.4 mg/dL (0.2-0.8); Bilirubin Total 0.6 mg/dL (0.2-1.0); Globulin 4.5 g/dL (2.3-3.5); Magnesium 1.6 mg/dL (1.6-2.4); Potassium 4.4 mEq/L (3.5-5.1); Protein, Total 8.6 g/dL (6.4-8.2); Troponin High Sensitivity 4.5 pg/mL (<58.9)
[2024-01-03] MEDS ORDERED: ACETAMINOPHEN 500 MG TAB ONE (12:52)
[2024-01-03 12:53] LABS: SARS-CoV-2 Antigen CONTROL BLUE LINE VIS/BG OK; SARS-CoV-2 Antigen Rapid Res Negative (Negative)
--- NOTE | 2024-01-03 13:03 | RAD REPORT ---
EXAM: Chest Single View HISTORY: ABDOMINAL DISTENTION COMPARISON: 03/10/2018 FINDINGS: LUNGS/PLEURA: The lungs are clear. No pleural effusions or pneumothorax. No pulmonary edema. MEDIASTINUM: The mediastinal silhouette is within normal limits. CARDIAC: The cardiac silhouette is within normal limits. UPPER ABDOMEN: No significant abnormality. BONES: No acute fracture. LINES/TUBES/OTHER: N/A IMPRESSION: No evidence of acute cardiopulmonary disease.
[2024-01-03 13:04] LABS: Band Neutrophils 11 % (0-1); Blood Morphology Comment NOTED (NOT SEEN); Differential Total Cells Count 100; Lymphocytes 6 % (15-42); Macrocytosis 1+; Monocytes 1 % (0-10); Platelet Estimate ADEQ; Platelets Clumped MANY; Segmented Neutrophils 85 % (40-80)
--- NOTE | 2024-01-03 13:32 | RAD REPORT ---
EXAM: CT CHEST, ABDOMEN AND PELVIS WITHOUT CONTRAST CLINICAL INDICATION: Female, 43 years [facility] MAIN Abdominal distention;Congestion Bed Name: 2 TECHNIQUE: CT chest, abdomen and pelvis was performed, with IV contrast, as per department protocol. Axial, sagittal and coronal reconstructions were obtained. One or more of the following dose reduction techniques were used: Automated exposure control, adjustment of the mA and/or kV according to the patient size, and/or iterative reconstruction. Unless otherwise specified, incidental findings do not require dedicated imaging follow-up. [id number]. COMPARISON: 09/30/2023 FINDINGS: Chest: LOWER NECK/CHEST WALL: Visualized thyroid gland and soft tissues are normal. LUNGS AND AIRWAYS: Airways are clear. No evidence of airspace or interstitial process. No nodules. PLEURA: No pleural effusion. No pneumothorax. Hemidiaphragms are normally positioned. MEDIASTINUM AND LYMPH NODES: No mediastinal mass or fluid collection. Normal size mediastinal, hilar, and axillary lymph nodes. THORACIC AORTA: Normal caliber and configuration. PULMONARY ARTERIES: Normal caliber. HEART: Unremarkable. Abdomen/Pelvis LIVER: Hepatic steatosis. GALLBLADDER/BILE DUCTS: No biliary ductal dilatation. PANCREAS: No mass, ductal dilation, or fish-pancreatic fluid. SPLEEN: Normal size. No focal lesion. ADRENALS: Left adrenal nodule measuring 2.1 cm is unchanged. Generalized thickening of the right adre nal gland. These are unchanged since 05/25/2022. KIDNEYS AND URETERS: Normal size and contour. No hydronephrosis. GASTROINTESTINAL TRACT: Fluid present throughout the colon and portions of the small bowel. Normal ap pendix. PERITONEUM: No free fluid. LYMPH NODES: No lymphadenopathy. ABDOMINAL AORTA AND OTHER VESSELS: Normal caliber aorta and IVC. URINARY BLADDER: Normal contour. REPRODUCTIVE ORGANS: No pathologic process. MUSCULOSKELETAL: No acute or suspicious osseous abnormality. Scattered degenerative changes are prese nt in the spine. ADDITIONAL FINDINGS: None IMPRESSION: No acute or significant abnormalities in the chest, abdomen, or pelvis. Nonspecific fluid within the colon and small bowel could reflect a mild enterocolitis or malabsorption process.
[2024-01-03] MEDS ORDERED: ACETAMINOPHEN 650MG/RECT SUPP PR ONE (13:41)
[2024-01-03] MEDS ORDERED: VANCOMYCIN 1 GM/VIAL ONE (13:41)
[2024-01-03] MEDS ORDERED: ACETAMINOPHEN 325 MG/SUPP PR ONE (13:41)
[2024-01-03] MEDS ORDERED: NA CHLORIDE 0.9% 250 ML ONE (13:42)
[2024-01-03] MEDS ORDERED: METRONIDAZOLE 500mg IVPB 500 MG/100 ML BAG IV ONE (13:42)
--- NOTE | 2024-01-03 13:50 | ER ---
Nurse's Notes [facility] Name: Suly Law Age: 43 yrs Sex: Female : 1980 Arrival Date: 01/03/2024 Time: 10:43 Bed 2 Private MD: Diagnosis: Abdominal tenderness;Other specified noninfective gastroenteritis and colitis;Fever, unspecified;Malignant neoplasm of cervix uteri, unspecified;Bandemia;Severe sepsis without septic shock Presentation: 01/02 10:46 Chief complaint: EMS states: Currently being treated for cervical cancer, last chemo ph yesterday, c/o pain all over, worse in RUQ, N/V, 20 G IV to LAC, 4mg Zofran and 300 mL NS given. Coronavirus screen: Vaccine status: Patient reports receiving the 2nd dose of the covid vaccine. Ebola Screen: No symptoms or risks identified at this time. Initial Sepsis Screen: Does the patient meet any 2 criteria? No. Patient's initial sepsis screen is negative. Does the patient have a suspected source of infection? No. Patient's initial sepsis screen is negative. Risk Assessment: Do you want to hurt yourself or someone else? Patient reports no desire to harm self or others. Onset of symptoms was January 03, 2024. 10:46 Method Of Arrival: EMS: [facility] ph 10:46 Acuity: LINDSEY 3 ph Historical: - Allergies: 10:54 No Known Allergies; ph - PMHx: 10:54 Cancer (Hypertensive disord); Hypertensive disorder; ph - Immunization history:: Adult Immunizations unknown. - Infectious Disease History:: Denies. - Social history:: Smoking status: unknown. Screenin:54 [facility] ED Fall Risk Assessment (Adult) History of falling in the last 3 months, ph including since admission No falls in past 3 months (0 pts) Confusion or Disorientation No (0 pts) Intoxicated or Sedated No (0 pts) Impaired Gait No (0 pts) Mobility Assist Device Used No (0 pt) Altered Elimination No (0 pt) Score/Fall Risk Level 0 - 2 = Low Risk Oriented to surroundings, Maintained a safe environment, Hourly rounding (assess needs \T\ fall precautionary measures) done. Abuse screen: Denies threats or abuse. Denies injuries from another. Nutritional screening: No deficits noted. Tuberculosis screening: No symptoms or risk factors identified. Assessment: 12:20 Reassessment: CALLED PHLEBOTOMY FOR BLOOD CULTURE COLLECTION. DUE TO DIFFICULT ACCESS. db STATES WILL COME. 12:25 Reassessment: Patient appears in no apparent distress at this time. Patient and/or db family updated on plan of care and expected duration. Pain level reassessed. Patient is alert, oriented x 3, equal unlabored respirations, skin warm/dry/pink. General: Appears in no apparent distress. uncomfortable, Behavior is calm, cooperative. Pain: Complains of pain in abdomen. Neuro: Level of Consciousness is awake, alert, obeys commands, Oriented to person, place, time, situation. Respiratory: Airway is patent Respiratory effort is even, unlabored, Respiratory pattern is regular, symmetrical. GI: Reports diarrhea, nausea. 13:02 Reassessment: PATIENT REPORTS VOMITING AFTER TYLENOL ADMINISTRATION PRIOR TO GOING TO db CT. NOTIFIED DR. TOLENTINO. PT CLEANED AND PLACED IN A GOWN. 13:33 Reassessment: CALLED PHLEBOTOMY FOR FOLLOWUP NO ANSWER. db 14:40 Reassessment: Patient appears in no apparent distress at this time. Patient and/or db family updated on plan of care and expected duration. Pain level reassessed. Patient is alert, oriented x 3, equal unlabored respirations, skin warm/dry/pink. Patient states feeling better. Patient states symptoms have improved. 16:48 Reassessment: Patient appears in no apparent distress at this time. Patient and/or db family updated on plan of care and expected duration. Pain level reassessed. Patient is alert, oriented x 3, equal unlabored respirations, skin warm/dry/pink. Patient states feeling better. 18:15 Reassessment: Patient appears in no apparent distress at this time. Patient and/or db family updated on plan of care and expected duration. Pain level reassessed. Patient is alert, oriented x 3, equal unlabored respirations, skin warm/dry/pink. Vital Signs: 10:46 BP 141 / 93; Pulse 88; Resp 18; Temp 97.1; Pulse Ox 98% on R/A; Weight 104.33 kg; ph Height 5 ft. 2 in. ; 12:30 BP 163 / 90; Pulse 108; Resp 18; Temp 101.1; Pulse Ox 100% on R/A; db 14:30 BP 150 / 84; Pulse 106; Resp 18; Pulse Ox 96% on R/A; db 14:39 Temp 100.2(O); db 15:30 BP 143 / 78; Pulse 104; Resp 16; Pulse Ox 100% on R/A; db 16:35 BP 103 / 66; Pulse 105; Resp 18; Temp 99.2(O); Pulse Ox 96% ; db 17:00 BP 137 / 82; Pulse 98; Resp 16; Pulse Ox 96% ; db 18:00 BP 110 / 56; Pulse 93; Resp 18; Pulse Ox 96% ; db 10:46 Body Mass Index 42.07 (104.33 kg, 157.48 cm) ph Vitals: 12:30 Cardiac Rhythm Assessment Regular Sinus tach. db ED Course: 10:45 Patient arrived in ED. ph 10:48 Crescencio Tolentino MD is Attending Physician. michaelle 10:51 Su Babcock RN is Primary Nurse. db 10:54 Triage completed. ph 10:54 Arm band placed on Patient placed in an exam room, on a stretcher, on pulse oximetry. ph 12:17 Initial lab(s) drawn, by me, sent to lab. Maintain EMS IV. Dressing intact. Good blood db return noted. Site clean \T\ dry. Gauge \T\ site: 20 g lac. 12:26 Patient has correct armband on for positive identification. Bed in low position. Call db light in reach. Side rails up X 1. Client placed on continuous cardiac and pulse oximetry monitoring. NIBP monitoring applied. case monitor on. Pulse ox on. NIBP on. Warm blanket given. Pillow given. 12:28 Flu Sent. db 12:28 SARS RAPID Sent. db 13:01 XRAY Chest (1 view) In Process Unspecified. EDMS 13:[address] via stretcher. db 13:03 EKG done, by ED staff. db 13:11 CT Chest, Abdomen, Pelvis - W/Contrast In Process Unspecified. EDMS 13:48 Amelia Alvarez MD is Hospitalizing Provider. michaelle 16:46 1646 CM met with and her Letitia at the bedside in the ED exam room. ane Patient identified by name and . Demographic sheet confirmed. PCP none. MPOA is in place. Patient states she is a cervical cancer patient under the care of Dr. Boogie Real at the [facility]. Her last chemotherapy treatment was December 28, 2023 and her next chemotherapy treatment is scheduled for February 08, 2024. She reports she lives with her Letitia in a single story home. No DME, no HH, or home oxygen. Her preferred plan is to return home upon discharge and states that Letitia will transport her home. 18:15 Provided Education on: ADMISSION. db 18:15 No provider procedures requiring assistance completed. Patient admitted, IV remains in db place. Administered Medications: 12:17 Drug: NS 0.9% IV (30 ml/kg) 30 ml/kg IV at bolus once; Sepsis Protocol; to be given as db a bolus over 90 minutes Route: IV; Rate: bolus; Site: left antecubital; 14:00 Follow up: Response: No adverse reaction; IV Status: Completed infusion; IV Intake: ph 3000ml 15:28 Follow up: IV Status: Completed infusion; IV Intake: 3130ml db 12:18 Drug: morphine IVP or IV 4 mg IVP once over 4 mins Route: IVP; Infused Over: 4 mins; db Site: left antecubital; 15:26 Follow up: Response: No adverse reaction db 12:18 Drug: Ondansetron IVP 4 mg IVP once; over 2 minutes Route: IVP; Site: left antecubital; db 15:27 Follow up: Response: No adverse reaction db 12:19 Drug: Famotidine IVP 20 mg IVP once; dilute with 10 mL 0.9% NaCl; give over 2 minutes db Route: IVP; Site: left antecubital; 15:27 Follow up: Response: No adverse reaction db 13:02 Drug: Acetaminophen PO 1000 mg PO once Route: PO; db 15:27 Follow up: Response: Other; VOMITED AFTER RECEIVING. MINIMAL EFFECT db 13:57 Drug: Cefepime IVPB 1 grams IVPB at 200 ml/hr once over 30 mins; (mix in NS 100 mL) ph Route: IVPB; Rate: 200 ml/hr; Infused Over: 30 mins; Site: left antecubital; 14:38 Follow up: Response: No adverse reaction; IV Status: Completed infusion; IV Intake: ph 100ml 13:57 Drug: Cefepime IVPB 1 grams IVPB at 200 ml/hr once over 30 mins; (mix in NS 100 mL) ph Route: IVPB; Rate: 200 ml/hr; Infused Over: 30 mins; Site: left antecubital; 14:38 Follow up: Response: No adverse reaction; IV Status: Completed infusion; IV Intake: ph 100ml 14:37 Drug: Acetaminophen MT Suppository 975 mg MT once Route: MT; ph 15:27 Follow up: Response: Temperature is decreased db 15:26 Drug: metroNIDAZOLE IVPB 500 mg 100 ml IVPB at 200 ml/hr once over 30 mins Volume: 100 db ml; Route: IVPB; Rate: 200 ml/hr; Infused Over: 30 mins; Site: left antecubital; 16:00 Follow up: Response: No adverse reaction; IV Status: Completed infusion; IV Intake: db 100ml 15:26 Drug: vancoMYCIN IVPB 1 grams IVPB once over 2 hrs Route: IVPB; Infused Over: 2 hrs; db Site: left antecubital; 17:30 Follow up: Response: No adverse reaction; IV Status: Completed infusion; IV Intake: db 250ml Medication: 18:15 VIS not applicable for this client. db Intake: 14:00 IV: 3000ml; Total: 3000ml. ph 14:38 IV: 100ml; Total: 3100ml. ph 14:38 IV: 100ml; Total: 3200ml. ph 15:28 IV: 3130ml; Total: 6330ml. db 16:00 IV: 100ml; Total: 6430ml. db 17:30 IV: 250ml; Total: 6680ml. db Outcome: 13:50 Decision to Hospitalize by Provider. michaelle 18:15 Admitted to Med/surg room 209, costa 18:15 Admitted to Med/surg Report called to CALLED FLOOR ASKED IF ANY QUESTIONS 18:15 Condition: stable 18:15 Instructed on the need for admit, 18:16 Patient left the ED. db Signatures: Dispatcher [employer] EDCrescencio Donovan MD MD cha Hall, Patricia, Su Rick RN, ph, LUIS RN Britt Garcia RN RN ane
--- NOTE | 2024-01-03 13:50 | EDPHYS ---
Physician Documentation [facility] Name: Suly Law Age: 43 yrs Sex: Female : 1980 Arrival Date: 01/03/2024 Time: 10:43 Bed 2 Private MD: ED Physician Crescencio Maradiaga HPI: 01/02 11:47 This 43 yrs old Female presents to ER via EMS with complaints of Pain All Over michaelle - N/V. 11:47 The patient presents with abdominal pain abdominal distention in the upper abdomen, in michaelle the lower abdomen. Onset: The symptoms/episode began/occurred 1 day(s) ago. chemo last Wednesday, abdominal pain, chills today. The symptoms do not radiate. Associated signs and symptoms: none. Severity of pain: At its worst the pain was moderate in the emergency department the pain is unchanged. Severity of symptoms: At their worst the symptoms were moderate in the emergency department the symptoms. Historical: - Allergies: 10:54 No Known Allergies; ph - PMHx: 10:54 Cancer (Hypertensive disord); Hypertensive disorder; ph - Immunization history:: Adult Immunizations unknown. - Infectious Disease History:: Denies. - Social history:: Smoking status: unknown. ROS: 11:51 Constitutional: Negative for fever, chills, and weight loss, Eyes: Negative for injury, michaelle pain, redness, and discharge, ENT: Negative for injury, pain, and discharge, Neck: Negative for injury, pain, and swelling, Cardiovascular: Negative for chest pain, palpitations, and edema, Respiratory: Negative for shortness of breath, cough, wheezing, and pleuritic chest pain, Back: Negative for injury and pain, : Negative for injury, bleeding, discharge, and swelling, MS/Extremity: Negative for injury and deformity, Skin: Negative for injury, rash, and discoloration, Neuro: Negative for headache, weakness, numbness, tingling, and seizure, Psych: Negative for depression, anxiety, suicide ideation, homicidal ideation, and hallucinations, Allergy/Immunology: Negative for hives, rash, and allergies, Endocrine: Negative for neck swelling, polydipsia, polyuria, polyphagia, and marked weight changes, Hematologic/Lymphatic: Negative for swollen nodes, abnormal bleeding, and unusual bruising, 11:51 Abdomen/GI: Positive for abdominal cramps, abdominal distension, of the right upper quadrant, left upper quadrant, right lower quadrant and left lower quadrant, Exam: 11:51 Constitutional: This is a well developed, well nourished patient who is awake, alert, michaelle and in no acute distress. Head/Face: Normocephalic, atraumatic. Eyes: Pupils equal round and reactive to light, extra-ocular motions intact. Lids and lashes normal. Conjunctiva and sclera are non-icteric and not injected. Cornea within normal limits. Periorbital areas with no swelling, redness, or edema. ENT: Nares patent. No nasal discharge, no septal abnormalities noted. Tympanic membranes are normal and external auditory canals are clear. Oropharynx with no redness, swelling, or masses, exudates, or evidence of obstruction, uvula midline. Mucous membranes moist. Neck: Trachea midline, no thyromegaly or masses palpated, and no cervical lymphadenopathy. Supple, full range of motion without nuchal rigidity, or vertebral point tenderness. No Meningismus. Chest/axilla: Normal chest wall appearance and motion. Nontender with no deformity. No lesions are appreciated. Cardiovascular: Regular rate and rhythm with a normal S1 and S2. No gallops, murmurs, or rubs. Normal PMI, no JVD. No pulse deficits. Respiratory: Lungs have equal breath sounds bilaterally, clear to auscultation and percussion. No rales, rhonchi or wheezes noted. No increased work of breathing, no retractions or nasal flaring. Back: No spinal tenderness. No costovertebral tenderness. Full range of motion. Skin: Warm, dry with normal turgor. Normal color with no rashes, no lesions, and no evidence of cellulitis. MS/ Extremity: Pulses equal, no cyanosis. Neurovascular intact. Full, normal range of motion. Neuro: Awake and alert, GCS 15, oriented to person, place, time, and situation. Cranial nerves II-XII grossly intact. Motor strength 5/5 in all extremities. Sensory grossly intact. Cerebellar exam normal. Normal gait. 11:51 ECG was reviewed by the Attending Physician. 11:51 Abdomen/GI: Inspection: distension, that is moderate, Bowel sounds: active, Palpation: moderate abdominal tenderness, in all quadrants, Liver: no appreciated palpable abnormalities, Hernia: not appreciated, 13:56 ECG was reviewed by the Attending Physician. [facility] Vital Signs: 10:46 BP 141 / 93; Pulse 88; Resp 18; Temp 97.1; Pulse Ox 98% on R/A; Weight 104.33 kg; ph Height 5 ft. 2 in. ; 12:30 BP 163 / 90; Pulse 108; Resp 18; Temp 101.1; Pulse Ox 100% on R/A; db 14:30 BP 150 / 84; Pulse 106; Resp 18; Pulse Ox 96% on R/A; db 14:39 Temp 100.2(O); db 15:30 BP 143 / 78; Pulse 104; Resp 16; Pulse Ox 100% on R/A; db 16:35 BP 103 / 66; Pulse 105; Resp 18; Temp 99.2(O); Pulse Ox 96% ; db 17:00 BP 137 / 82; Pulse 98; Resp 16; Pulse Ox 96% ; db 18:00 BP 110 / 56; Pulse 93; Resp 18; Pulse Ox 96% ; db 10:46 Body Mass Index 42.07 (104.33 kg, 157.48 cm) ph MDM: 10:48 Medical Screening Exam initiated [facility] 11:53 Differential Diagnosis altered mental status, sepsis, flu. Differential diagnosis: [facility] cholecystitis, Cholelithiasis, diverticulitis, Dysmenorrhea, Endometriosis, gastritis, Hepatitis, Irritable bowel syndrome, Mesenteric ischemia or infarction, non-specific abd pain, pancreatitis, Peptic Ulcer Disease, Perf. Duodenal Ulcer, Perf. Gastric Ulcer, Pyelonephritis, Ureterolithiasis, urinary tract infection. Data reviewed: vital signs, nurses notes, EMS record, lab test result(s), EKG, radiologic studies, CT scan, plain films. Consideration of Admission/Observation Patient was admitted/placed on observation. Escalation of care including admission/observation considered. I considered the following discharge prescriptions or medication management in the emergency department Medications were administered in the Emergency Department. See MAR. Independent interpretation of the following test(s) in the Emergency Department EKG: See my EKG interpretation above. Historians other than the Patient: Family Member: family , well informed. 13:55 Post IV fluid administration reassessment for Sepsis: Client prescribed 30 mL/kg IVF. [facility] Sepsis focused reassessment complete. 01/02 11:44 Order name: Basic Metabolic Panel; Complete Time: 13:06 [facility] 01/02 11:44 Order name: CBC with Diff; Complete Time: 13:06 [facility] 01/02 11:44 Order name: LFT's; Complete Time: 13:06 [facility] 01/02 11:44 Order name: Magnesium; Complete Time: 13:06 [facility] 01/02 11:44 Order name: NT PRO-BNP; Complete Time: 13:06 [facility] 01/02 11:44 Order name: PT-INR; Complete Time: 13:06 [facility] 01/02 11:44 Order name: Troponin HS; Complete Time: 13:06 [facility] 01/02 11:44 Order name: Lipase; Complete Time: 13:06 [facility] 01/02 11:44 Order name: Urinalysis w/ reflexes; Complete Time: 15:28 [facility] 01/02 11:44 Order name: Blood Culture Adult (2) [facility] 01/02 11:44 Order name: Flu; Complete Time: 13:34 [facility] 01/02 11:44 Order name: SARS RAPID; Complete Time: 13:06 [facility] 01/02 13:05 Order name: Manual Differential; Complete Time: 13:06 [facility] 01/02 13:52 Order name: Lactate w/ 2H reflex if indic. [facility] 01/02 16:07 Order name: Respiratory Syncytial Virus Ag [facility] 01/02 16:07 Order name: CBC with Automated Diff [facility] 01/02 16:07 Order name: CBC with Automated Diff [facility] 01/02 16:07 Order name: Comprehensive Metabolic Panel [facility] 01/02 16:07 Order name: Comprehensive Metabolic Panel [facility] 01/02 11:44 Order name: XRAY Chest (1 view); Complete Time: 13:06 [facility] 01/02 11:44 Order name: CT Chest, Abdomen, Pelvis - W/Contrast; Complete Time: 13:34 [facility] 01/02 11:44 Order name: EKG; Complete Time: 11:44 [facility] 01/02 11:44 Order name: Cardiac monitoring; Complete Time: 12:28 [facility] 01/02 11:44 Order name: EKG - Nurse/Tech; Complete Time: 13:03 [facility] 01/02 11:44 Order name: IV Saline Lock; Complete Time: 12:28 [facility] 01/02 11:44 Order name: Labs collected and sent; Complete Time: 12:28 [facility] 01/02 11:44 Order name: O2 Per Protocol; Complete Time: 12:28 [facility] 01/02 11:44 Order name: O2 Sat Monitoring; Complete Time: 12:28 [facility] 01/02 13:07 Order name: IV Saline Lock - Large Bore; Complete Time: 13:57 [facility] EC:56 Rate is 109 beats/min. Rhythm is regular. QRS Viper is Normal. WI interval is normal. [facility] QRS interval is normal. QT interval is normal. No Q waves. T waves are Normal. No ST changes noted. Clinical impression: Sinus tachycardia and No evidence of ischemia. Interpreted by me. Reviewed by me. Administered Medications: 12:17 Drug: NS 0.9% IV (30 ml/kg) 30 ml/kg IV at bolus once; Sepsis Protocol; to be given as db a bolus over 90 minutes Route: IV; Rate: bolus; Site: left antecubital; 14:00 Follow up: Response: No adverse reaction; IV Status: Completed infusion; IV Intake: ph 3000ml 15:28 Follow up: IV Status: Completed infusion; IV Intake: 3130ml db 12:18 Drug: morphine IVP or IV 4 mg IVP once over 4 mins Route: IVP; Infused Over: 4 mins; db Site: left antecubital; 15:26 Follow up: Response: No adverse reaction db 12:18 Drug: Ondansetron IVP 4 mg IVP once; over 2 minutes Route: IVP; Site: left antecubital; db 15:27 Follow up: Response: No adverse reaction db 12:19 Drug: Famotidine IVP 20 mg IVP once; dilute with 10 mL 0.9% NaCl; give over 2 minutes db Route: IVP; Site: left antecubital; 15:27 Follow up: Response: No adverse reaction db 13:02 Drug: Acetaminophen PO 1000 mg PO once Route: PO; db 15:27 Follow up: Response: Other; VOMITED AFTER RECEIVING. MINIMAL EFFECT db 13:57 Drug: Cefepime IVPB 1 grams IVPB at 200 ml/hr once over 30 mins; (mix in NS 100 mL) ph Route: IVPB; Rate: 200 ml/hr; Infused Over: 30 mins; Site: left antecubital; 14:38 Follow up: Response: No adverse reaction; IV Status: Completed infusion; IV Intake: ph 100ml 13:57 Drug: Cefepime IVPB 1 grams IVPB at 200 ml/hr once over 30 mins; (mix in NS 100 mL) ph Route: IVPB; Rate: 200 ml/hr; Infused Over: 30 mins; Site: left antecubital; 14:38 Follow up: Response: No adverse reaction; IV Status: Completed infusion; IV Intake: ph 100ml 14:37 Drug: Acetaminophen WI Suppository 975 mg WI once Route: WI; ph 15:27 Follow up: Response: Temperature is decreased db 15:26 Drug: metroNIDAZOLE IVPB 500 mg 100 ml IVPB at 200 ml/hr once over 30 mins Volume: 100 db ml; Route: IVPB; Rate: 200 ml/hr; Infused Over: 30 mins; Site: left antecubital; 16:00 Follow up: Response: No adverse reaction; IV Status: Completed infusion; IV Intake: db 100ml 15:26 Drug: vancoMYCIN IVPB 1 grams IVPB once over 2 hrs Route: IVPB; Infused Over: 2 hrs; db Site: left antecubital; 17:30 Follow up: Response: No adverse reaction; IV Status: Completed infusion; IV Intake: db 250ml Disposition Summary: 01/03/24 13:50 Hospitalization Ordered Notes: Hospitalization Status: Inpatient Admission michaelle Provider: Amelia Alvarez cha Location: Telemetry/MedSurg (Inpatient) michaelle Condition: Fair michaelle Problem: new michaelle Symptoms: have improved michaelle Bed/Room Type: Standard [facility] Room Assignment: 209(01/03/24 16:14) bd Diagnosis - Abdominal tenderness michaelle - Other specified noninfective gastroenteritis and colitis michaelle - Fever, unspecified michaelle - Malignant neoplasm of cervix uteri, unspecified michaelle - Bandemia michaelle - Severe sepsis without septic shock michaelle Forms: - Medication Reconciliation Form michaelle - SBAR form michaelle - Leadership Thank You Letter michaelle Signatures: Dispatcher [employer] Gracy Pozo Corey, MD MD cha Hall, Patricia RN RN ph Su Babcock RN RN Dorothy Drew, DIRECTOR FUNDRAISING DIRECTOR FUNDRAISING [id number] Corrections: (The following items were deleted from the chart) 16:14 13:50 michaelle bd
[2024-01-03 14:45] LABS: Sqamous Epithelial <5 /HPF (None Seen); Urine Bacteria None Seen /HPF (<20); Urine Bilirubin NEGATIVE (Negative); Urine Blood Trace (Negative); Urine Clarity Clear (Clear); Urine Color Colorless (Yellow); Urine Crystals Unidentified Few /HPF (None Seen); Urine Culture Reflex Order NOT NEEDED; Urine Glucose NEGATIVE (Negative); Urine Ketones NEGATIVE (Negative); Urine Microscopic Reflex YN ORDER UMIC; Urine Mucus Slight /HPF (None Seen); Urine Nitrite NEGATIVE (Negative); Urine Protein TRACE (Negative); Urine RBC <5 /HPF (None Seen); Urine Urobilinogen Normal (Normal); Urine WBC <5 /HPF (<5); Urine Yeast (Budding) Trace /HPF (None Seen); Urine pH 5.5 (5.0-7.0)
[2024-01-03 14:46] LABS: Specific Gravity > 1.030 (1.005-1.030)
--- NOTE | 2024-01-03 16:07 | P.HP ---
Certification for Inpatient Patient admitted to: Inpatient With expected LOS: >2 Midnights Patient will require the following post-hospital care: None Practitioner: I am a practitioner with admitting privileges, knowledge of patient current condition, hospital course, and medical plan of care. Services: Services provided to patient in accordance with Admission requirements found in Title 42 Section 412.3 of the Code of Federal Regulations Patient History Date of Service: 01/03/24 Reason for admission: sepsis; intractable nausea and vomiting History of Present Illness: Patient is a 43-year-old female who has a history of cervical cancer, stage IIIb, who presents to the hospital with intractable nausea vomiting and diarrhea. She is status post 1 week from chemotherapy. She been feeling really weak and fatigued since then. - Past Medical/Surgical History -: Stage IIIb cervical cancer - Family History Father Family History: Reviewed- Non-Contributory - Social History Smoking Status: Former smoker Alcohol use: No CD- Drugs: No Review of Systems 10-point ROS is otherwise unremarkable Physical Examination - Physical Exam General: Alert, In no apparent distress, Oriented x3 HEENT: Atraumatic, PERRLA, Mucous membr. moist/pink, EOMI, Sclerae nonicteric Neck: Supple, 2+ carotid pulse no bruit, No LAD, Without JVD or thyroid abnormality Respiratory: Clear to auscultation bilaterally, Normal air movement Cardiovascular: Regular rate/rhythm, Normal S1 S2 Gastrointestinal: Normal bowel sounds, No tenderness Musculoskeletal: No tenderness Integumentary: No rashes Neurological: Normal gait, Normal speech, Normal strength at 5/5 x4 extr, Normal tone, Normal affect Lymphatics: No axilla or inguinal lymphadenopathy - Studies Laboratory Data (last 24 hrs) 01/03/24 01/03/24 01/03/24 12:17 12:17 12:17 WBC 8.10 Hgb 15.0 Hct 44.7 Plt Count 246 PT 11.9 INR 1.06 Sodium 139 Potassium 4.4 BUN 24 H Creatinine 1.20 H Glucose 124 H Magnesium 1.6 Total Bilirubin 0.6 AST 27 ALT 41 Alkaline Phosphatase 101 Lipase 56 Microbiology Data (last 24 hrs): 01/03/24 12:15 Nasopharnyx Influenza Type A Antigen Screen - Final 01/03/24 12:15 Nasopharnyx Influenza Type B Antigen Screen - Final Assessment & Plan - Advance Directives Does patient have a Living Will: No Does patient have a Durable POA for Healthcare: No
[2024-01-03] MEDS: NA CHLORIDE 0.9% 1,000 ML IV SCH (18:30)
[2024-01-03] MEDS: VANCOMYCIN 1.75 GM in NA CHLORIDE 0.9% 500 ML IVPB ONE (18:30)
[2024-01-03] MEDS: ONDANSETRON 4 MG/2 ML VIAL IV PRN (18:45)
[2024-01-03 20:52] VITALS: BMI 41.8
[2024-01-03] MEDS: CEFEPIME 2 GM in NA CHLORIDE 0.9% 100 ML IV SCH (21:19)
[2024-01-04 05:19] LABS: Absolute Eosinophils 0.2 K/uL (0-0.5); Absolute Lymphocytes (CBC) 0.5 K/uL (0.7-4.9); Absolute Monocytes 0.4 K/uL (0.1-1.3); Absolute Neutrophil 6.4 K/uL (1.8-8.0); Basophils % 0.2 % (0-1.3); Eosinophils % 2.9 % (0-4.4); Hematocrit 32.3 % (36.0-45.0); Hemoglobin 10.8 g/dL (12.0-15.0); MCH 35.1 pg (27.0-35.0); MCHC 33.5 g/dL (32.0-36.0); MPV 8.6 fL (7.6-11.3); Monocytes % 5.9 % (3.3-12.3); Platelets 171 thou/uL (152-406); RBC Red Blood Cell Count 3.08 M/uL (3.86-4.86); Red Cell Distribution Width 14.7 % (12.1-15.2)
[2024-01-04 05:49] LABS: Albumin 2.6 g/dL (3.4-5.0); Albumin/Globulin Ratio 0.8 (1.1-1.8); Anion Gap 8.6 mEq/L (5.0-15.0); Bilirubin Total 0.4 mg/dL (0.2-1.0); Globulin 3.3 g/dL (2.3-3.5); Potassium 3.6 mEq/L (3.5-5.1); Protein, Total 5.9 g/dL (6.4-8.2)
[2024-01-04] MEDS: FLU (Fluarix Triv) TS24-25(6MOS UP)/PF 45 MCG/0.5 ML Syringe IM ONE (07:15)
[2024-01-04] MEDS: PNEUMOCOCCAL VACCINE 0.5 ML IMVAC ONE (08:00)
--- NOTE | 2024-01-04 08:12 | P.PN ---
Date of Service: 01/04/24 subjective Reports epigastric pain, 4 loose stools over overnight, pain controlled with as needed analgesia Review of Systems 10-point ROS is otherwise unremarkable Physical Examination - Physical Exam vital signs Reviewed General: Alert, In no apparent distress, Oriented x3 HEENT: Atraumatic, PERRLA, Mucous membr. moist/pink, EOMI, Sclerae nonicteric Neck: Supple, 2+ carotid pulse no bruit, No LAD, Without JVD or thyroid abnormality Respiratory: Clear to auscultation bilaterally, Normal air movement Cardiovascular: Regular rate/rhythm, Normal S1 S2 Gastrointestinal: Epigastric pain, left lower quadrant tender normal bowel sounds, Musculoskeletal: No tenderness Integumentary: No rashes Neurological: Normal gait, Normal speech, Normal strength at 5/5 x4 extr, Normal tone, Normal affect Lymphatics: No axilla or inguinal lymphadenopathy assessment plan plan Severe sepsis without septic shock Adverse reaction to chemo induced colitis Malignant neoplasm of cervix uteri, unspecified Abdominal pain nausea vomiting secondary to chemo induced colitis IV antibiotics, vancomycin, Zosyn IV fluids, as needed analgesics, as needed antiemetics, Full code DVT SCDs Diet clear liquids, advance as tolerated Disposition Home independent prior Time with patient 35
[2024-01-04 08:56] LABS: C.diff Antigen/Toxin Ag neg : Tox neg (NEG : NEG); CDIFF INTERNAL NEG CONTROL White Background (WHITE BKGD); STOOL CONSISTENCY Liquid/Semi-Solid
[2024-01-04] MEDS: VANCOMYCIN 1.5 GM in NA CHLORIDE 0.9% 500 ML IVPB SCH (11:43)
[2024-01-04] MEDS: PIPER TAZO 3.375 GM in NA CHLORIDE 0.9% 100 ML IV SCH (13:37)
[2024-01-04] MEDS ORDERED: VANCOMYCIN 2 GM in NA CHLORIDE 0.9% 500 ML IVPB ONE (14:00)
--- NOTE | 2024-01-04 16:48 | P.DS ---
Admission Date: 01/03/24 Discharge Date: 01/05/24 Disposition: ROUTINE DISCHARGE Reason for Admission: sepsis; intractable nausea and vomiting Brief History of Present Illness: Patient is a 43-year-old female who has a history of cervical cancer, stage IIIb, who presents to the hospital with intractable nausea vomiting and diarrhea. . She been feeling really weak and fatigued since then. She reports that the epigastric pain, left lower quadrant pain. Reports multiple loose stools, she reports having chemotherapy 1 week ago. She denies fever, - Physical Exam General: Alert, In no apparent distress, Oriented x3 HEENT: Atraumatic, PERRLA, Mucous membr. moist/pink, EOMI, Sclerae nonicteric Neck: Supple, 2+ carotid pulse no bruit, No LAD, Without JVD or thyroid abnormality Respiratory: Clear to auscultation bilaterally, Normal air movement Cardiovascular: Regular rate/rhythm, Normal S1 S2 Gastrointestinal: Normal bowel sounds, No tenderness Musculoskeletal: No tenderness Integumentary: No rashes Neurological: Normal gait, Normal speech, Normal strength at 5/5 x4 extr, Normal tone, Normal affect Hospital Course: 43-year-old female who has a history of cervical cancer, stage IIIb, who presents to the hospital with intractable nausea vomiting and diarrhea. Was noted to have colitis secondary to chemo, she reports multiple loose stools, no reported fever, she was admitted for colitis, treated with IV fluids, IV antibiotics, as needed analgesics, antiemetics, diet advance as tolerated, stable to discharge home, follow-up with oncology after discharge, Discharged home on p.o. antibiotics, as needed antiemetics Instructed on a bland, soft diet with low roughage, Assessment plan Chemo induced colitis-treated with IV fluids, IV antibiotics, bowel rest, as needed antiemetics, cervical cancer, stage IIIb, follow-up with oncology after discharge Abdominal pelvis CT IMPRESSION: No acute or significant abnormalities in the chest, abdomen, or pelvis. Nonspecific fluid within the colon and small bowel could reflect a mild enterocolitis or malabsorption process. GOAL: Clear understanding of disease process INSTRUCTIONS: Physician Discharge Instructions: -Follow-up with oncology after discharge -Follow-up with PCP in 1 to 2 weeks -Please call Dr. Alvarez at [phone] if any questions regarding hospital stay -Please call nursing station at [phone] if any nursing or medication questions -Return to the emergency room if symptoms worsen Diet: ADA, low sodium Activity: Fall precautions Vital Signs/Physical Exam: Temp Pulse Resp BP Pulse Ox 97.5 F 72 20 117/73 100 01/04/24 16:00 01/04/24 16:00 01/04/24 16:00 01/04/24 16:00 01/04/24 16:00 Laboratory Data at Discharge: WBC 7.50 thou/uL (4.3-10.9) 01/04/24 04:58 Hgb 10.8 g/dL (12.0-15.0) L D 01/04/24 04:58 Hct 32.3 % (36.0-45.0) L 01/04/24 04:58 Plt Count 171 thou/uL (152-406) D 01/04/24 04:58 PT 11.9 SECONDS (9.4-12.5) 01/03/24 12:17 INR 1.06 01/03/24 12:17 Sodium 139 mEq/L (136-145) 01/04/24 04:58 Potassium 3.6 mEq/L (3.5-5.1) D 01/04/24 04:58 BUN 13 mg/dL (7-18) 01/04/24 04:58 Creatinine 0.76 mg/dL (0.55-1.02) 01/04/24 04:58 Glucose 103 mg/dL (74-106) 01/04/24 04:58 Magnesium 1.6 mg/dL (1.6-2.4) 01/03/24 12:17 Total Bilirubin 0.4 mg/dL (0.2-1.0) 01/04/24 04:58 AST 14 U/L (15-37) L 01/04/24 04:58 ALT 26 U/L (13-56) 01/04/24 04:58 Alkaline Phosphatase 54 U/L (45-117) D 01/04/24 04:58 Lipase 56 U/L (13-75) 01/03/24 12:17 Home Medications: Ciprofloxacin HCl [Cipro 500 MG Tablet] 500 mg PO BID 7 Days #14 tab 01/05/24 Lactobacillus Acidophilus 1 each PO BID 7 Days #14 cap 01/05/24 Ondansetron [Zofran] 4 mg PO Q6H PRN 30 Days #30 tab 01/05/24 metroNIDAZOLE [Flagyl] 500 mg PO Q12H 7 Days #14 tab 01/05/24 New Medications: Ciprofloxacin HCl [Cipro 500 MG Tablet] 500 mg PO BID 7 Days #14 tab metroNIDAZOLE [Flagyl] 500 mg PO Q12H 7 Days #14 tab Lactobacillus Acidophilus 1 each PO BID 7 Days #14 cap Ondansetron [Zofran] 4 mg PO Q6H PRN 30 Days #30 tab PRN Reason: Nausea / Vomiting Physician Discharge Instructions: 43-year-old female who has a history of cervical cancer, stage IIIb, who presents to the hospital with intractable nausea vomiting and diarrhea. Was noted to have colitis secondary to chemo, she reports multiple loose stools, no reported fever, she was admitted for colitis, treated with IV fluids, IV antibiotics, as needed analgesics, antiemetics, diet advance as tolerated, stable to discharge home, follow-up with oncology after discharge, Discharged home on Cipro, Flagyl, Zofran, follow-up with [facility]/oncology after discharge Discharged home on p.o. antibiotics, as needed antiemetics, Instructed on a bland, soft diet with low roughage, Assessment plan Chemo induced colitis-treated with IV fluids, IV antibiotics, bowel rest, as needed antiemetics, cervical cancer, stage IIIb, follow-up with oncology after discharge Abdominal pelvis CT IMPRESSION: No acute or significant abnormalities in the chest, abdomen, or pelvis. Nonspecific fluid within the colon and small bowel could reflect a mild enterocolitis or malabsorption process. GOAL: Clear understanding of disease process INSTRUCTIONS: Physician Discharge Instructions: -Follow-up with oncology after discharge -Follow-up with PCP in 1 to 2 weeks -Please call Dr. Alvarez at [phone] if any questions regarding hospital stay -Please call nursing station at [phone] if any nursing or medication questions -Return to the emergency room if symptoms worsen Diet: ADA, low sodium Activity: Fall precautions Diet: [place] Activity: Fall precautions Followup: NONE,NONE [Primary Care Provider] - Boogie Real MD [OUTSIDE PHYSICIAN] - Time spent managing pt's care (in minutes): 45
[2024-01-04] MEDS: ACETAMINOPHEN 500 MG TAB PO PRN (17:44)
[2024-01-04] MEDS: MORPHINE 2 MG/ML SYR IV PRN (22:08)
[2024-01-05 04:55] VITALS: O2SAT 99
[2024-01-05 05:46] VITALS: TEMP 97.8
[2024-01-05 05:46] LABS: Absolute Eosinophils 0.2 K/uL (0-0.5); Absolute Lymphocytes (CBC) 0.7 K/uL (0.7-4.9); Absolute Monocytes 0.4 K/uL (0.1-1.3); Absolute Neutrophil 4.3 K/uL (1.8-8.0); Basophils % 0.5 % (0-1.3); Eosinophils % 3.6 % (0-4.4); Hematocrit 32.3 % (36.0-45.0); Hemoglobin 10.8 g/dL (12.0-15.0); Lymphocytes % 11.9 % (15.3-44.8); MCH 35.2 pg (27.0-35.0); MCHC 33.6 g/dL (32.0-36.0); MCV 104.8 fL (80-100); MPV 8.9 fL (7.6-11.3); Monocytes % 6.8 % (3.3-12.3); Neutrophils % 77.2 % (41.7-73.7); Platelets 147 thou/uL (152-406); RBC Red Blood Cell Count 3.08 M/uL (3.86-4.86); Red Cell Distribution Width 14.8 % (12.1-15.2)
[2024-01-05 05:57] LABS: Albumin 2.7 g/dL (3.4-5.0); Anion Gap 7.5 mEq/L (5.0-15.0); Phosphorus 2.3 mg/dL (2.5-4.9); Potassium 3.5 mEq/L (3.5-5.1)
[2024-01-05 08:43] VITALS: BP 154/71
--- NOTE | 2024-01-05 10:06 | P.DS ---
Admission Date: 01/03/24 Discharge Date: 01/05/24 Disposition: ROUTINE DISCHARGE Reason for Admission: sepsis; intractable nausea and vomiting Brief History of Present Illness: Patient is a 43-year-old female who has a history of cervical cancer, stage IIIb, who presents to the hospital with intractable nausea vomiting and diarrhea. . She been feeling really weak and fatigued since then. She reports that the epigastric pain, left lower quadrant pain. Reports multiple loose stools, she reports having chemotherapy 1 week ago. She denies fever, - Physical Exam General: Alert, In no apparent distress, Oriented x3 HEENT: Atraumatic, PERRLA, Mucous membr. moist/pink, EOMI, Sclerae nonicteric Neck: Supple, 2+ carotid pulse no bruit, No LAD, Without JVD or thyroid abnormality Respiratory: Clear to auscultation bilaterally, Normal air movement Cardiovascular: Regular rate/rhythm, Normal S1 S2 Gastrointestinal: Normal bowel sounds, No tenderness Musculoskeletal: No tenderness Integumentary: No rashes Neurological: Normal gait, Normal speech, Normal strength at 5/5 x4 extr, Normal tone, Normal affect Hospital Course: 43-year-old female who has a history of cervical cancer, stage IIIb, who presents to the hospital with intractable nausea vomiting and diarrhea. Was noted to have colitis secondary to chemo, she reports multiple loose stools, no reported fever, she was admitted for colitis, treated with IV fluids, IV antibiotics, as needed analgesics, antiemetics, diet advance as tolerated, stable to discharge home, follow-up with oncology after discharge, Discharged home on p.o. antibiotics, as needed antiemetics, as needed analgesics Instructed on a bland, soft diet with low roughage, Assessment plan Chemo induced colitis-treated with IV fluids, IV antibiotics, bowel rest, as needed antiemetics, cervical cancer, stage IIIb, follow-up with oncology after discharge Abdominal pelvis CT IMPRESSION: No acute or significant abnormalities in the chest, abdomen, or pelvis. Nonspecific fluid within the colon and small bowel could reflect a mild enterocolitis or malabsorption process. GOAL: Clear understanding of disease process INSTRUCTIONS: Physician Discharge Instructions: -Follow-up with oncology after discharge -Follow-up with PCP in 1 to 2 weeks -Please call Dr. Alvarez at [phone] if any questions regarding hospital stay -Please call nursing station at [phone] if any nursing or medication questions -Return to the emergency room if symptoms worsen Diet: ADA, low sodium Activity: Fall precautions Vital Signs/Physical Exam: Temp Pulse Resp BP Pulse Ox 97.8 F 71 18 154/71 H 98 01/05/24 08:00 01/05/24 08:00 01/05/24 08:00 01/05/24 08:00 01/05/24 08:00 Laboratory Data at Discharge: WBC 5.60 thou/uL (4.3-10.9) 01/05/24 05:25 Hgb 10.8 g/dL (12.0-15.0) L 01/05/24 05:25 Hct 32.3 % (36.0-45.0) L 01/05/24 05:25 Plt Count 147 thou/uL (152-406) L 01/05/24 05:25 PT 11.9 SECONDS (9.4-12.5) 01/03/24 12:17 INR 1.06 01/03/24 12:17 Sodium 139 mEq/L (136-145) 01/05/24 05:25 Potassium 3.5 mEq/L (3.5-5.1) 01/05/24 05:25 BUN 8 mg/dL (7-18) 01/05/24 05:25 Creatinine 0.76 mg/dL (0.55-1.02) 01/05/24 05:25 Glucose 101 mg/dL (74-106) 01/05/24 05:25 Phosphorus 2.3 mg/dL (2.5-4.9) L 01/05/24 05:25 Magnesium 1.6 mg/dL (1.6-2.4) 01/03/24 12:17 Total Bilirubin 0.4 mg/dL (0.2-1.0) 01/04/24 04:58 AST 14 U/L (15-37) L 01/04/24 04:58 ALT 26 U/L (13-56) 01/04/24 04:58 Alkaline Phosphatase 54 U/L (45-117) D 01/04/24 04:58 Lipase 56 U/L (13-75) 01/03/24 12:17 Home Medications: Ciprofloxacin HCl [Cipro 500 MG Tablet] 500 mg PO BID 7 Days #14 tab 01/05/24 Lactobacillus Acidophilus 1 each PO BID 7 Days #14 cap 01/05/24 Ondansetron [Zofran] 4 mg PO Q6H PRN 30 Days #30 tab 01/05/24 metroNIDAZOLE [Flagyl] 500 mg PO Q12H 7 Days #14 tab 01/05/24 Physician Discharge Instructions: 43-year-old female who has a history of cervical cancer, stage IIIb, who presents to the hospital with intractable nausea vomiting and diarrhea. Was noted to have colitis secondary to chemo, she reports multiple loose stools, no reported fever, she was admitted for colitis, treated with IV fluids, IV antibiotics, as needed analgesics, antiemetics, diet advance as tolerated, stable to discharge home, follow-up with oncology after discharge, Discharged home on p.o. antibiotics, as needed antiemetics, as needed analgesics Instructed on a bland, soft diet with low roughage, Assessment plan Chemo induced colitis-treated with IV fluids, IV antibiotics, bowel rest, as needed antiemetics, cervical cancer, stage IIIb, follow-up with oncology after discharge Abdominal pelvis CT IMPRESSION: No acute or significant abnormalities in the chest, abdomen, or pelvis. Nonspecific fluid within the colon and small bowel could reflect a mild enterocolitis or malabsorption process. GOAL: Clear understanding of disease process INSTRUCTIONS: Physician Discharge Instructions: -Follow-up with oncology after discharge -Follow-up with PCP in 1 to 2 weeks -Please call Dr. Alvarez at [phone] if any questions regarding hospital stay -Please call nursing station at [phone] if any nursing or medication questions -Return to the emergency room if symptoms worsen Diet: ADA, low sodium Activity: Fall precautions Diet: [place] Activity: Fall precautions Followup: NONE,NONE [Primary Care Provider] -
--- NOTE | 2024-01-05 11:39 | EKG ---
Test Date: 2024-01-03 Test Time: 12:41:42 Orthotic/Prosthetic Practitioner: SHIRLEY MEASUREMENT RESULTS: Intervals: Rate: 109 PA: 136 QRSD: 94 QT: 334 QTc: 449 [place]: P: 76 PA: 136 QRS: 98 T: 82 INTERPRETIVE STATEMENTS: Sinus tachycardia Rightward axis Borderline ECG Compared to ECG 03/10/2018 11:00:56 No significant changes Electronically Signed On 01-05-24 11:34:34 MANAGER BUSINESS CONTINUITY by John Riley
== END 2024-01-05 11:45 | disposition home or self-care (01) | DRG 872 ==
LOC: ER 10:43 → ERHOLD 15:50 → 2ND 16:49
PROVIDERS: ADMIT Hospitalist; ATTEND Hospitalist
DX: A41.9 Sepsis, unspecified organism (principal); K52.1 Toxic gastroenteritis and colitis; I10 Essential (primary) hypertension; R65.20 Severe sepsis without septic shock; C53.9 Malignant neoplasm of cervix uteri, unspecified; K52.89 Other specified noninfective gastroenteritis and colitis; T45.1X5A Adverse effect of antineoplastic and immunosuppressive drugs, initial encounter; Z87.891 Personal history of nicotine dependence; Z11.52 Encounter for screening for COVID-19
CPT/HCPCS: 36415; 71045; 71260; 74177; 80048; 80053; 80069; 80076; 81001; 83605; 83690; 83735; 83880; 84484; 85025; 85610; 87040; 87324; 87804; 87807; 87811; 93005; 96365; 96367; 96375; 99285; J0692; J2270; J2405; J2543; J7030; J7040; J7050; Q9967